=== PATIENT | male | born 1935 | race Caucasian/White ===

== ENCOUNTER 2020-07-23 07:11 | Outpatient (REF) | payer OTHER, MEDICARE, SELFPAY ==
[2020-07-23 07:57] LABS: MANUAL DIFF FLAG NO
[2020-07-23 08:09] LABS: Estimated Average Glucose 137 mg/dL; Hemoglobin A1c % 6.4 %
[2020-07-23 08:10] LABS: Basophils Absolute Auto 0.1 X10*3/uL (0.0-0.2); Basophils Percent Auto 0.8 % (0-2); Eosinophils Absolute Auto 0.5 X10*3/uL (0.0-0.4); Eosinophils Percent Auto 5.4 % (0-4); Hematocrit 45.8 % (42-52); Hemoglobin 14.5 g/dl (14.0-18.0); Imm Gran Abs Auto 0.05 X10*3/uL (0.00-0.03); Imm Gran Pct Auto 0.6 % (0.0-0.4); Lymphocytes Absolute Auto 1.8 X10*3/uL (1.2-4.9); Mean Corpuscular HGB Conc 31.7 g/dl (31.0-36.0); Mean Corpuscular Hemoglobin 30.5 pg (27.0-33.0); Mean Corpuscular Volume 96.2 fL (80-98); Mean Platelet Volume 10.1 fL (9.4-12.4); Monocytes Absolute Auto 0.9 X10*3/uL (0.1-1.2); Monocytes Percent Auto 10.4 % (2-11); Neutrophils Percent Auto 60.8 % (45-73); Platelet Count 262 X10*3/uL (160-400); Red Blood Count 4.76 X10*6/uL (4.60-5.80); Red Cell Distribution Width 13.5 % (11.0-16.0); White Blood Count 8.3 X10*3/uL (4.8-10.8)
[2020-07-23 08:26] LABS: Alanine Aminotransferase 17 U/L (0-40); Albumin Level 3.9 g/dL (3.5-5.0); Alkaline Phosphatase 81 U/L (39-117); Anion Gap 14 (12-20); Aspartate Amino Transferase 18 U/L (5-37); Bilirubin Total 0.7 mg/dL (0.0-1.0); Blood Urea Nitrogen 32 mg/dL (9-16); Calcium 8.8 mg/dL (8.4-10.2); Carbon Dioxide 21 mmol/L (22-29); Chloride 109 mmol/L (96-108); Estimated Glomerular Filt Rate 44; Glucose Fasting 132 mg/dL (60-99); Potassium 4.9 mmol/l (3.3-5.1); Sodium 139 mmol/L (135-145); Total Protein 6.8 g/dL (6.5-8.0)
[2020-07-23 09:59] LABS: Creatinine Urine 172.77 mg/dL; Microalbum/Creatinine Ratio Ur 2.8 ug/mg cr
== END 2020-07-23 07:12 | disposition home or self-care (01) ==
LOC: HO.LAB 07:11
PROVIDERS: PCP Internal Medicine Medical Oncology; Visit Provider Internal Medicine Medical Oncology
DX: E11.9 Type 2 diabetes mellitus without complications (principal); I10 Essential (primary) hypertension; E78.00 Pure hypercholesterolemia, unspecified
CPT/HCPCS: 36415; 80053; 82043; 83036; 85025

== ENCOUNTER 2020-08-21 09:26 | Outpatient (REF) | payer OTHER, MEDICARE, SELFPAY ==
--- NOTE | 2020-08-21 | US_ITS ---
EXAMINATION: US ABDOMEN COMPLETE CLINICAL INFORMATION: Left upper quadrant pain. COMPARISON: Ultrasound abdomen 02/22/2014 TECHNIQUE: Real-time imaging of the abdominal viscera. Technically difficult study secondary to body habitus. FINDINGS: PANCREAS: Visualized portions unremarkable. ABDOMINAL AORTA: Unremarkable. INFERIOR VENA CAVA: Unremarkable. LIVER: Unremarkable. GALLBLADDER: Unremarkable. COMMON BILE DUCT: Normal in caliber measuring 0.5 cm in diameter. RIGHT KIDNEY: 13.0 cm. Unremarkable. LEFT KIDNEY: 14.1 cm. Unremarkable. SPLEEN: Normal. The spleen measures 6.8 cm in maximum dimension. FREE FLUID: None. US/US abdomen complete IMPRESSION: Unremarkable abdominal ultrasound.
== END 2020-08-21 09:27 | disposition home or self-care (01) ==
LOC: HO.US 09:26
PROVIDERS: Visit Provider Internal Medicine Medical Oncology
DX: R10.12 Left upper quadrant pain (principal)
CPT/HCPCS: 76700

== ENCOUNTER 2020-10-25 07:48 | Outpatient (REF) | payer OTHER, MEDICARE, SELFPAY ==
[2020-10-25 08:21] LABS: MANUAL DIFF FLAG NO
[2020-10-25 08:33] LABS: Basophils Absolute Auto 0.1 X10*3/uL (0.0-0.2); Basophils Percent Auto 0.8 % (0-2); Eosinophils Absolute Auto 0.4 X10*3/uL (0.0-0.4); Eosinophils Percent Auto 4.5 % (0-4); Hematocrit 44.8 % (42-52); Hemoglobin 14.6 g/dl (14.0-18.0); Imm Gran Abs Auto 0.04 X10*3/uL (0.00-0.03); Imm Gran Pct Auto 0.5 % (0.0-0.4); Lymphocytes Absolute Auto 1.7 X10*3/uL (1.2-4.9); Lymphocytes Percent Auto 18.8 % (20-40); Mean Corpuscular HGB Conc 32.6 g/dl (31.0-36.0); Mean Corpuscular Hemoglobin 30.9 pg (27.0-33.0); Mean Corpuscular Volume 94.7 fL (80-98); Monocytes Absolute Auto 0.8 X10*3/uL (0.1-1.2); Monocytes Percent Auto 8.5 % (2-11); Neutrophils Absolute Auto 5.9 X10*3/uL (2.0-8.3); Neutrophils Percent Auto 66.9 % (45-73); Platelet Count 243 X10*3/uL (160-400); Red Blood Count 4.73 X10*6/uL (4.60-5.80); Red Cell Distribution Width 13.2 % (11.0-16.0); White Blood Count 8.8 X10*3/uL (4.8-10.8)
[2020-10-25 08:47] LABS: Estimated Average Glucose 137 mg/dL; Hemoglobin A1c % 6.4 %
[2020-10-25 09:02] LABS: Alanine Aminotransferase 18 U/L (0-40); Alkaline Phosphatase 86 U/L (39-117); Anion Gap 13 (12-20); Aspartate Amino Transferase 17 U/L (5-37); Bilirubin Total 0.8 mg/dL (0.0-1.0); Blood Urea Nitrogen 21 mg/dL (9-16); Calcium 8.9 mg/dL (8.4-10.2); Carbon Dioxide 23 mmol/L (22-29); Chloride 107 mmol/L (96-108); Cholesterol 148 mg/dL; Estimated Glomerular Filt Rate 53; Glucose Fasting 137 mg/dL (60-99); HDL Cholesterol 53 mg/dL; LDL Cholesterol Calculated 84 mg/dl; Potassium 4.8 mmol/L (3.3-5.1); Sodium 138 mmol/L (135-145); Total Protein 6.8 g/dL (6.5-8.0); Triglycerides 56 mg/dL
== END 2020-10-25 07:49 | disposition home or self-care (01) ==
LOC: HO.LAB 07:48
PROVIDERS: PCP Internal Medicine Medical Oncology; Visit Provider Internal Medicine Medical Oncology
DX: M51.06 Intervertebral disc disorders with myelopathy, lumbar region (principal); I10 Essential (primary) hypertension; E11.9 Type 2 diabetes mellitus without complications; E78.00 Pure hypercholesterolemia, unspecified; E66.9 Obesity, unspecified
CPT/HCPCS: 36415; 80053; 80061; 83036; 85025

== ENCOUNTER 2021-02-01 07:39 | Outpatient (REF) | payer OTHER, MEDICARE, SELFPAY ==
[2021-02-01 08:26] LABS: MANUAL DIFF FLAG NO
[2021-02-01 08:31] LABS: Basophils Absolute Auto 0.1 X10*3/uL (0.0-0.2); Basophils Percent Auto 0.8 % (0-2); Eosinophils Absolute Auto 0.5 X10*3/uL (0.0-0.4); Eosinophils Percent Auto 6.1 % (0-4); Hematocrit 45.6 % (42-52); Hemoglobin 14.6 g/dl (14.0-18.0); Imm Gran Abs Auto 0.02 X10*3/uL (0.00-0.03); Imm Gran Pct Auto 0.3 % (0.0-0.4); Lymphocytes Absolute Auto 1.6 X10*3/uL (1.2-4.9); Lymphocytes Percent Auto 20.5 % (20-40); Mean Corpuscular Hemoglobin 30.8 pg (27.0-33.0); Mean Corpuscular Volume 96.2 fL (80-98); Mean Platelet Volume 10.3 fL (9.4-12.4); Monocytes Absolute Auto 0.8 X10*3/uL (0.1-1.2); Monocytes Percent Auto 10.2 % (2-11); Neutrophils Absolute Auto 4.8 X10*3/uL (2.0-8.3); Neutrophils Percent Auto 62.1 % (45-73); Platelet Count 241 X10*3/uL (160-400); Red Blood Count 4.74 X10*6/uL (4.60-5.80); White Blood Count 7.7 X10*3/uL (4.8-10.8)
[2021-02-01 08:40] LABS: Estimated Average Glucose 137 mg/dL; Hemoglobin A1c % 6.4 %
[2021-02-01 08:47] LABS: Alanine Aminotransferase 11 U/L (0-40); Albumin Level 3.9 g/dL (3.5-5.0); Alkaline Phosphatase 93 U/L (39-117); Anion Gap 15 (12-20); Aspartate Amino Transferase 17 U/L (5-37); Bilirubin Total 0.8 mg/dL (0.0-1.0); Blood Urea Nitrogen 30 mg/dL (9-16); Calcium 8.7 mg/dL (8.4-10.2); Carbon Dioxide 20 mmol/L (22-29); Chloride 109 mmol/L (96-108); Cholesterol 150 mg/dL; Estimated Glomerular Filt Rate 49; Glucose Fasting 133 mg/dL (60-99); HDL Cholesterol 50 mg/dL; LDL Cholesterol Calculated 89 mg/dl; Potassium 4.6 mmol/L (3.3-5.1); Sodium 139 mmol/L (135-145); Total Protein 6.8 g/dL (6.5-8.0); Triglycerides 56 mg/dL
== END 2021-02-01 07:40 | disposition home or self-care (01) ==
LOC: HO.LAB 07:39
PROVIDERS: PCP Internal Medicine Medical Oncology; Visit Provider Internal Medicine Medical Oncology
DX: E11.9 Type 2 diabetes mellitus without complications (principal); E78.00 Pure hypercholesterolemia, unspecified; I10 Essential (primary) hypertension
CPT/HCPCS: 36415; 80053; 80061; 83036; 85025

== ENCOUNTER 2021-02-21 10:57 | Emergency (ER) | payer OTHER, MEDICARE, SELFPAY ==
[2021-02-21 10:59] VITALS: BP 140/66; PULSE 76; RESP 16; TEMP 36.6; O2SAT 96; BMI 33.0
[2021-02-21] MEDS: Lidocaine HCl 2 % MPF 5 ML VIAL SUBCUT (11:56)
--- NOTE | 2021-02-21 12:28 | ED.SKABFB ---
HPI - Skin/Abscess/Foreign Bdy General Chief complaint: Skin/Abscess/Foreign Body Stated complaint: CYST Time Seen by Provider: 02/21/21 11:22 Source: patient Mode of arrival: ambulatory Limitations: no limitations History of Present Illness HPI narrative: 85-year-old male with a past medical history of szm-ideksqy-pocjzflbg diabetes, hypertension hyperlipidemia here with abscess to his back x1 week. no fevers or chills. Went to his primary care doctor referred to the ER for I and D Related Data Previous Rx's Medication Instructions Recorded doxycycline monohydrate 100 mg PO BID #14 tab 02/21/21 Allergies Allergy/AdvReac Type Severity Reaction Status Date / Time Shellfish Allergy Intermediate ITCHING Uncoded 02/21/21 11:54 Review of Systems Review of Systems: Yes all other systems are reviewed and are negative Constitutional: Constitutional: Reports no additional constitutional complaints, Denies body ache(s), Denies chills, Denies fever(s), Denies headache(s) and Denies weakness Eyes: Eyes: Reports no additional eye complaints and Denies change in vision ENT: Reports system reviewed and no additional complaints, except as documented, Denies dizziness, Denies headache(s), Denies nasal congestion, Denies nasal discharge and Denies neck pain Cardiovascular: Cardiovascular: Reports no additional cardiovascular complaints, Denies chest pain, Denies leg edema and Denies dyspnea Respiratory: Respiratory: Reports no additional respiratory complaints, Denies cough and Denies dyspnea Gastrointestinal: Gastrointestinal: Reports no additional gastrointestinal complaints, Denies abdominal pain, Denies diarrhea, Denies nausea and Denies vomiting Genitourinary: Genitourinary: Denies urinary incontinence Musculoskeletal: Musculoskeletal: Reports no additional musculoskeletal complaints, Denies back pain, Denies arthralgias, Denies joint swelling, Denies neck pain, Denies numbness and Denies tingling Integumentary/Breasts: Skin/Breast: Reports system reviewed and no additional complaints, except as docu, Reports furuncle, Reports swelling, Reports erythema and Denies rash Neurologic: Reports system reviewed and no additional complaints, except as documented, Denies Abnormal speech present, Denies dizziness, Denies headache(s), Denies numbness, Denies tingling and Denies weakness PMFSH Past Medical History Attestation statement: The following information was validated with the patient. Source: old records reviewed and nursing notes reviewed Medical History Diabetes High cholesterol HTN (hypertension) Social History Social History Advance Directives: Yes Advance Directives Information Provided: Yes Advance Directives on File: No Physical Exam Vital Signs: Vital Signs: Last Vital Signs Temp 97.9 F 02/21/21 10:59 Pulse 76 02/21/21 10:59 Resp 16 02/21/21 10:59 BP 140/66 H 02/21/21 10:59 Pulse Ox 96 02/21/21 10:59 Body Mass Index 33.0 Const: General: cooperative, healthy appearing, comfortable and no acute distress Orientation/consciousness: patient oriented x3 Limitations: no limitations HENMT: Head: Yes normal to inspection Ears: hearing grossly normal bilaterally General nose exam: Normal external nose present Face and sinus: Yes normal facial exam Mouth: Normal oral and palatal mucosa present Throat: Yes posterior oropharynx normal Eyes: General: appearance normal, both eyes and all related structures Pupils: Equal, round and reactive pupils present Neck: Neck: Yes normal visual inspection Chest: Chest palpation & inspection: normal inspection of the chest Resp: Effort & Inspection: normal respiratory effort Auscultation: clear to auscultation bilaterally Cardio: Rate: regular rate Rhythm: regular rhythm Peripheral pulses: Peripheral pulses 2+ throughout GI: Inspection: Yes normal to inspection Palpation (GI): Soft to palpation and nontender Auscultation: normal bowel sounds Back/Spine/Pelvis: Other: to the upper back there is a large cyst with local erythema, swelling and tenderness. There is 1 area that is draining. there is pointing Thoracic/Lumbar Spine: thoracic and lumbar spine normal to inspection Skin: General skin exam: no rashes or lesions noted Neuro: General: patient oriented x3, no focal motor deficits and normal sensation to monofilament Cranial nerves: Yes Equal, round and reactive pupils present Cognition (Neuro): normal cognition Speech: No Abnormal speech present Gait exam (Neuro): Normal gait present Motor exam (neuro): 5/5 motor strength present throughout Extrem: General: Yes normal to inspection Course Course Course Narrative: see procedure note. infected cyst. given course of antibiotics. no systemic signs or symptoms concerning for infection. will refer to surgery. recommended return in 48 hours for packing removal. reviewed worrisome signs and symptoms of when to return to the emergency department. Comfortable discharge home. Procedures Abscess I/D Site: back Local Anesthetic: lidocaine 2% Amount of anesthesia used (mL): 5 Technique: incised with blade Amount of fluid expressed (mL): 20 Sent for culture/gram staining?: No Irrigation: Yes Packing used?: iodoform Discharge Plan Discharge Clinical Impression: Abscess of skin or subcutaneous tissue Qualifiers: Site of cutaneous abscess: trunk Site of cutaneous abscess of trunk: back Qualified Code(s): L02.212 - Cutaneous abscess of back [any part, except buttock] Patient Disposition: Home, Self-Care Instructions: Abscess (ED) Additional Instructions: Return for packing removal in 48 hours You may keep the bandage on until Wednesday. If it falls of then place a Band-Aid over it. If the packing falls out then you do not need to return for a recheck Prescriptions: New doxycycline monohydrate 100 mg tablet 100 mg PO BID Qty: 14 RF: 0 Referrals: Richie Hatfield MD [Primary Care Provider] - 2 days (as needed ) Bessy Duran MD [Physician] - 2 days Interventions: ED Discharge Assessment Last Done: 02/21/21 12:14 Discharge Date/Time: 02/21/21 12:16
== END 2021-02-21 12:16 | disposition home or self-care (01) ==
PROVIDERS: Emergency Provider Emergency Medicine Emergency Medical Services; PCP Internal Medicine Medical Oncology
DX: L02.212 Cutaneous abscess of back [any part, except buttock and flank] (principal); E11.9 Type 2 diabetes mellitus without complications; I10 Essential (primary) hypertension
CPT/HCPCS: 10060; 99283; 99284

== ENCOUNTER 2021-02-23 09:32 | Emergency (ER) | payer OTHER, MEDICARE, SELFPAY ==
[2021-02-23 09:35] VITALS: BP 148/62; PULSE 70; RESP 18; TEMP 36.6; O2SAT 98; BMI 32.8
--- NOTE | 2021-02-23 10:17 | ED.SKABFB ---
HPI - Skin/Abscess/Foreign Bdy General Chief complaint: Skin/Abscess/Foreign Body Stated complaint: abcess packet removed Time Seen by Provider: 02/23/21 10:17 History of Present Illness HPI narrative: Patient presents for packing removal of abscess on back that was I and D 2 days ago He has no complaints and feels improved no fever no chills Related Data Previous Rx's Medication Instructions Recorded doxycycline monohydrate 100 mg PO BID #14 tab 02/21/21 Allergies Allergy/AdvReac Type Severity Reaction Status Date / Time Shellfish Allergy Intermediate ITCHING Uncoded 02/21/21 11:54 Review of Systems Review of Systems: No fever no chills no dizziness no numbness no weakness no tingling no urinary symptoms Yes all other systems are reviewed and are negative PMFSH Past Medical History Source: nursing notes reviewed Medical History Diabetes High cholesterol HTN (hypertension) Social History Social History Advance Directives: Yes Advance Directives Information Provided: Yes Advance Directives on File: No Physical Exam Vital Signs: Vital Signs: Last Vital Signs Temp 97.9 F 02/23/21 09:35 Pulse 70 02/23/21 09:35 Resp 18 02/23/21 09:35 BP 148/62 H 02/23/21 09:35 Pulse Ox 98 02/23/21 09:35 Body Mass Index 32.8 General appearance no acute distress Head is normocephalic atraumatic Neck is supple The back there is packing in the abscess cavity with very minimal erythema there is no tenderness no fluctuance no longer any discharge from wound Extremities full range of motion x4 Neuro no focal motor sensory deficit Course Course Course Narrative: Packing was removed from 1 back I and D which is very improved and at this point there is no evidence of remaining abscess no surrounding cellulitis and patient is discharged Discharge Plan Discharge Clinical Impression: Wound check, abscess Patient Disposition: Home, Self-Care Additional Instructions: I removed the packing and the wound looks good Change dressing daily until wound is closed return any time for pain swelling redness fever any worse condition or any concerns Prescriptions: No Action doxycycline monohydrate 100 mg tablet 100 mg PO BID Qty: 14 RF: 0 Interventions: ED Discharge Assessment Last Done: 02/23/21 11:06 Discharge Date/Time: 02/23/21 11:07
== END 2021-02-23 11:07 | disposition home or self-care (01) ==
PROVIDERS: Emergency Provider Emergency Medicine
DX: Z48.00 Encounter for change or removal of nonsurgical wound dressing (principal); Z87.2 Personal history of diseases of the skin and subcutaneous tissue
CPT/HCPCS: 99283; 99284

== ENCOUNTER 2021-06-06 08:29 | Outpatient (REF) | payer OTHER, MEDICARE, SELFPAY ==
[2021-06-06 08:57] LABS: MANUAL DIFF FLAG NO
[2021-06-06 09:44] LABS: Basophils Percent Auto 0.2 % (0-2); Eosinophils Percent Auto 0.3 % (0-4); Hemoglobin 14.7 g/dl (14.0-18.0); Imm Gran Abs Auto 0.02 X10*3/uL (0.00-0.03); Imm Gran Pct Auto 0.3 % (0.0-0.4); Lymphocytes Absolute Auto 1.1 X10*3/uL (1.2-4.9); Lymphocytes Percent Auto 17.2 % (20-40); Mean Corpuscular HGB Conc 33.4 g/dl (31.0-36.0); Mean Corpuscular Hemoglobin 31.1 pg (27.0-33.0); Mean Platelet Volume 10.3 fL (9.4-12.4); Monocytes Absolute Auto 0.8 X10*3/uL (0.1-1.2); Monocytes Percent Auto 11.8 % (2-11); Neutrophils Absolute Auto 4.5 X10*3/uL (2.0-8.3); Neutrophils Percent Auto 70.2 % (45-73); Platelet Count 192 X10*3/uL (160-400); Red Blood Count 4.73 X10*6/uL (4.60-5.80); Red Cell Distribution Width 13.8 % (11.0-16.0); White Blood Count 6.4 X10*3/uL (4.8-10.8)
[2021-06-06 10:25] LABS: Alanine Aminotransferase 19 U/L (0-40); Albumin Level 3.8 g/dL (3.5-5.0); Alkaline Phosphatase 95 U/L (39-117); Anion Gap 15 (12-20); Aspartate Amino Transferase 32 U/L (5-37); Bilirubin Total 0.9 mg/dL (0.0-1.0); Blood Urea Nitrogen 37 mg/dL (9-16); Calcium 8.7 mg/dL (8.4-10.2); Carbon Dioxide 17 mmol/L (22-29); Chloride 107 mmol/L (96-108); Cholesterol 121 mg/dL; Estimated Glomerular Filt Rate 38; Glucose Fasting 109 mg/dL (60-99); HDL Cholesterol 42 mg/dL; LDL Cholesterol Calculated 69 mg/dl; Potassium 5.1 mmol/L (3.3-5.1); Sodium 134 mmol/L (135-145); Total Protein 6.9 g/dL (6.5-8.0); Triglycerides 53 mg/dL
[2021-06-06 10:26] LABS: Estimated Average Glucose 137 mg/dL; Hemoglobin A1c % 6.4 %
[2021-06-06 10:29] LABS: Creatinine Urine 84.02 mg/dL
[2021-06-06 10:35] LABS: Prostate Specific Antigen 3.56 ng/mL (<0.05-4.0)
== END 2021-06-06 08:30 | disposition home or self-care (01) ==
LOC: HO.LAB 08:29
PROVIDERS: PCP Internal Medicine Medical Oncology; Visit Provider Internal Medicine Medical Oncology
DX: I10 Essential (primary) hypertension (principal); N40.0 Benign prostatic hyperplasia without lower urinary tract symptoms; E11.9 Type 2 diabetes mellitus without complications; E78.5 Hyperlipidemia, unspecified; Z12.5 Encounter for screening for malignant neoplasm of prostate
CPT/HCPCS: 36415; 80053; 80061; 82043; 83036; 84153; 85025

== ENCOUNTER 2021-08-08 15:24 | Outpatient (REF) | payer OTHER, MEDICARE, SELFPAY ==
--- NOTE | ~2021-08-08 | US_ITS ---
EXAMINATION: US RETROPERITONEAL COMPLETE (RENAL) CLINICAL INFORMATION: Hypertension. Elevated BUN. 2 diabetes. COMPARISON: Ultrasound abdomen complete 08/21/2020 and 02/22/2014. TECHNIQUE: Real-time imaging of the kidneys and bladder. FINDINGS: RIGHT KIDNEY: 12.8 x 4.6 x 6.4 cm (SAG x AP x TRV). Mildly echogenic. There is mild cortical thinning and a mid pole parenchymal calcification. There is mild cortical thinning. No calculi or focal parenchymal lesions. No hydronephrosis. LEFT KIDNEY: 12.8 x 5.2 x 4.8 cm (SAG x AP x TRV). Mildly echogenic. Cortical thinning. No calculi or focal parenchymal lesions. No hydronephrosis. BLADDER: Well distended and normal. Bilateral ureteral jets are demonstrated. Prevoid bladder volume is 327.3 mL. Postvoid bladder volume is 233.3 mL. ADDITIONAL FINDINGS: The prostate is enlarged. Prostate volume is 60 mL. US/US retroperitoneal comp IMPRESSION: 1. Prostatomegaly and significant post void residual bladder volume. 2. Mildly echogenic kidneys bilaterally with mild cortical thinning.
== END 2021-08-08 15:25 | disposition home or self-care (01) ==
LOC: HO.US 15:24
PROVIDERS: Visit Provider Internal Medicine Medical Oncology
DX: I10 Essential (primary) hypertension (principal); E11.9 Type 2 diabetes mellitus without complications; R74.8 Abnormal levels of other serum enzymes; R79.9 Abnormal finding of blood chemistry, unspecified
CPT/HCPCS: 76770

== ENCOUNTER 2021-08-15 09:05 | Outpatient (REF) | payer OTHER, MEDICARE, SELFPAY ==
[2021-08-15 09:22] LABS: MANUAL DIFF FLAG NO
[2021-08-15 09:37] LABS: Basophils Percent Auto 0.5 % (0-2); Eosinophils Absolute Auto 0.3 X10*3/uL (0.0-0.4); Eosinophils Percent Auto 3.8 % (0-4); Hematocrit 43.5 % (42.0-52.0); Hemoglobin 14.1 g/dl (14.0-18.0); Imm Gran Abs Auto 0.02 X10*3/uL (0.00-0.03); Imm Gran Pct Auto 0.3 % (0.0-0.4); Lymphocytes Absolute Auto 1.2 X10*3/uL (1.2-4.9); Mean Corpuscular HGB Conc 32.4 g/dl (31.0-36.0); Mean Corpuscular Hemoglobin 30.9 pg (27.0-33.0); Mean Corpuscular Volume 95.4 fL (80.0-98.0); Mean Platelet Volume 9.5 fL (9.4-12.4); Monocytes Absolute Auto 0.7 X10*3/uL (0.1-1.2); Neutrophils Absolute Auto 5.3 x10*3/uL (2.0-8.3); Neutrophils Percent Auto 70.4 % (45-73); Platelet Count 252 X10*3/uL (160-400); Red Blood Count 4.56 X10*6/uL (4.60-5.80); Red Cell Distribution Width 13.9 % (11.0-16.0); White Blood Count 7.6 X10*3/uL (4.8-10.8)
[2021-08-15 10:00] LABS: Alanine Aminotransferase 20 U/L (0-40); Albumin Level 4.3 g/dL (3.5-5.0); Alkaline Phosphatase 92 U/L (39-117); Anion Gap 13 (12-20); Aspartate Amino Transferase 20 U/L (5-37); Bilirubin Direct 0.4 mg/dL (0.0-0.5); Bilirubin Total 1.1 mg/dL (0.0-1.0); Blood Urea Nitrogen 26 mg/dL (9-16); Calcium 9.4 mg/dL (8.4-10.2); Carbon Dioxide 22 mmol/L (22-29); Chloride 108 mmol/L (96-108); Estimated Glomerular Filt Rate 52; Phosphorus 3.6 mg/dL (2.7-4.5); Potassium 4.6 mmol/L (3.3-5.1); Sodium 138 mmol/L (135-145); Total Protein 7.2 g/dL (6.5-8.0); Uric Acid 7.9 mg/dL (3.4-7.0)
[2021-08-15 10:22] LABS: Vitamin D 25-OH Total 16.3 ng/mL (>30)
[2021-08-18 11:01] LABS: Complement C3 126 mg/dL
[2021-08-18 11:26] LABS: Anti Nuclear Antibody Screen NEGATIVE (NEGATIVE)
[2021-08-18 12:41] LABS: Calcium (PTHI) 9.2 mg/dL (8.6-10.3); PTHI 72 pg/mL (14-64)
[2021-08-18 13:46] LABS: Prot Elec - Albumin 3.9 g/dL (3.8-4.8); Prot Elec - Alpha1 0.3 g/dL (0.2-0.3); Prot Elec - Alpha2 0.8 g/dL (0.5-0.9); Prot Elec - Beta 1 0.5 g/dL (0.4-0.6); Prot Elec - Beta 2 0.4 g/dL (0.2-0.5); Prot Elec - Gamma 1.4 g/dL (0.8-1.7); Prot Elec - Total Protein 7.1 g/dL (6.1-8.1)
== END 2021-08-15 09:06 | disposition home or self-care (01) ==
LOC: HO.LAB 09:05
PROVIDERS: Visit Provider Internal Medicine Nephrology
DX: I12.9 Hypertensive chronic kidney disease with stage 1 through stage 4 chronic kidney disease, or unspecified chronic kidney disease (principal); N18.31 Chronic kidney disease, stage 3a
CPT/HCPCS: 36415; 80051; 80076; 82306; 82310; 82565; 83970; 84100; 84165; 84520; 84550; 85025; 86038; 86039; 86160

== ENCOUNTER 2021-11-12 11:55 | Outpatient (REF) | payer OTHER, MEDICARE, SELFPAY ==
[2021-11-12 12:49] LABS: Appearance Urine CLEAR; Color Urine YELLOW; Glucose Urine UA NEG (NEG); Leukocyte Esterase Urine NEG (NEG); Nitrite Urine NEG (NEG); PH 5.5 (5.0-8.0); Urine Blood NEG (NEG); Urine Ketones NEG (NEG); Urine Protein TRACE MG/DL (NEG-TRACE)
== END 2021-11-12 11:56 | disposition home or self-care (01) ==
LOC: HO.LAB 11:55
PROVIDERS: PCP Internal Medicine Medical Oncology; Visit Provider Internal Medicine Medical Oncology
DX: R32 Unspecified urinary incontinence (principal); N40.0 Benign prostatic hyperplasia without lower urinary tract symptoms
CPT/HCPCS: 81003; 87086

== ENCOUNTER 2021-12-05 07:28 | Outpatient (REF) | payer OTHER, MEDICARE, SELFPAY ==
[2021-12-05 07:47] LABS: MANUAL DIFF FLAG NO
[2021-12-05 08:02] LABS: Basophils Absolute Auto 0.1 X10*3/uL (0.0-0.2); Basophils Percent Auto 0.9 % (0-2); Eosinophils Absolute Auto 0.6 X10*3/uL (0.0-0.4); Eosinophils Percent Auto 8.4 % (0-4); Hemoglobin 14.2 g/dl (14.0-18.0); Imm Gran Abs Auto 0.02 X10*3/uL (0.00-0.03); Imm Gran Pct Auto 0.3 % (0.0-0.4); Lymphocytes Absolute Auto 1.3 X10*3/uL (1.2-4.9); Lymphocytes Percent Auto 16.9 % (20-40); Mean Corpuscular HGB Conc 32.3 g/dl (31.0-36.0); Mean Corpuscular Hemoglobin 31.1 pg (27.0-33.0); Mean Corpuscular Volume 96.3 fL (80.0-98.0); Mean Platelet Volume 9.6 fL (9.4-12.4); Monocytes Absolute Auto 0.8 X10*3/uL (0.1-1.2); Monocytes Percent Auto 10.9 % (2-11); Neutrophils Absolute Auto 4.7 x10*3/uL (2.0-8.3); Neutrophils Percent Auto 62.6 % (45-73); Platelet Count 227 X10*3/uL (160-400); Red Blood Count 4.57 X10*6/uL (4.60-5.80); White Blood Count 7.5 X10*3/uL (4.8-10.8)
[2021-12-05 08:13] LABS: Estimated Average Glucose 128 mg/dL; Hemoglobin A1c % 6.1 %
[2021-12-05 08:34] LABS: Alanine Aminotransferase 16 U/L (0-40); Albumin Level 3.8 g/dL (3.5-5.0); Alkaline Phosphatase 87 U/L (39-117); Anion Gap 12 (12-20); Aspartate Amino Transferase 18 U/L (5-37); Bilirubin Total 0.5 mg/dL (0.0-1.0); Blood Urea Nitrogen 21 mg/dL (9-16); Carbon Dioxide 24 mmol/L (22-29); Chloride 106 mmol/L (96-108); Cholesterol 152 mg/dL; Estimated Glomerular Filt Rate 58; Glucose Fasting 125 mg/dL (60-99); HDL Cholesterol 54 mg/dL; LDL Cholesterol Calculated 89 mg/dl; Potassium 4.2 mmol/L (3.3-5.1); Sodium 138 mmol/L (135-145); Total Protein 6.7 g/dL (6.5-8.0); Triglycerides 47 mg/dL
== END 2021-12-05 07:29 | disposition home or self-care (01) ==
LOC: HO.LAB 07:28
PROVIDERS: PCP Internal Medicine Medical Oncology; Visit Provider Internal Medicine Medical Oncology
DX: I10 Essential (primary) hypertension (principal); E11.9 Type 2 diabetes mellitus without complications; E78.01 Familial hypercholesterolemia
CPT/HCPCS: 36415; 80053; 80061; 83036; 85025

== ENCOUNTER 2022-04-17 07:23 | Outpatient (REF) | payer OTHER, MEDICARE, SELFPAY ==
[2022-04-17 07:38] LABS: MANUAL DIFF FLAG NO
[2022-04-17 08:19] LABS: Basophils Absolute Auto 0.1 X10*3/uL (0.0-0.2); Basophils Percent Auto 1.2 % (0-2); Eosinophils Absolute Auto 0.4 X10*3/uL (0.0-0.4); Eosinophils Percent Auto 4.9 % (0-4); Hematocrit 43.8 % (42.0-52.0); Hemoglobin 14.3 g/dl (14.0-18.0); Imm Gran Abs Auto 0.02 X10*3/uL (0.00-0.03); Imm Gran Pct Auto 0.3 % (0.0-0.4); Lymphocytes Absolute Auto 1.4 X10*3/uL (1.2-4.9); Lymphocytes Percent Auto 19.5 % (20-40); Mean Corpuscular HGB Conc 32.6 g/dl (31.0-36.0); Mean Platelet Volume 9.8 fL (9.4-12.4); Monocytes Absolute Auto 0.8 X10*3/uL (0.1-1.2); Monocytes Percent Auto 10.6 % (2-11); Neutrophils Absolute Auto 4.7 x10*3/uL (2.0-8.3); Neutrophils Percent Auto 63.5 % (45-73); Platelet Count 243 X10*3/uL (160-400); Red Blood Count 4.61 X10*6/uL (4.60-5.80); Red Cell Distribution Width 13.1 % (11.0-16.0); White Blood Count 7.4 X10*3/uL (4.8-10.8)
[2022-04-17 08:49] LABS: Alanine Aminotransferase 13 U/L (0-40); Albumin Level 3.9 g/dL (3.5-5.0); Alkaline Phosphatase 90 U/L (39-117); Anion Gap 15 (12-20); Aspartate Amino Transferase 19 U/L (5-37); Bilirubin Total 0.9 mg/dL (0.0-1.0); Blood Urea Nitrogen 26 mg/dL (9-16); Calcium 8.9 mg/dL (8.4-10.2); Carbon Dioxide 23 mmol/L (22-29); Chloride 107 mmol/L (96-108); Cholesterol 156 mg/dL; Estimated Glomerular Filt Rate 48; Glucose Fasting 125 mg/dL (60-99); HDL Cholesterol 56 mg/dL; LDL Cholesterol Calculated 86 mg/dl; Potassium 4.9 mmol/L (3.3-5.1); Sodium 140 mmol/L (135-145); Triglycerides 74 mg/dL
== END 2022-04-17 07:24 | disposition home or self-care (01) ==
LOC: HO.LAB 07:23
PROVIDERS: PCP Internal Medicine Medical Oncology; Visit Provider Internal Medicine Medical Oncology
DX: E66.9 Obesity, unspecified (principal); E11.9 Type 2 diabetes mellitus without complications; I10 Essential (primary) hypertension
CPT/HCPCS: 36415; 80053; 80061; 85025

== ENCOUNTER 2022-07-25 07:17 | Outpatient (REF) | payer OTHER, MEDICARE, SELFPAY ==
[2022-07-25 08:35] LABS: Basophils Absolute Auto 0.1 X10*3/uL (0.0-0.2); Basophils Percent Auto 0.9 % (0-2); Eosinophils Absolute Auto 0.3 X10*3/uL (0.0-0.4); Eosinophils Percent Auto 4.1 % (0-4); Hematocrit 43.6 % (42.0-52.0); Hemoglobin 14.7 g/dl (14.0-18.0); Imm Gran Abs Auto 0.02 X10*3/uL (0.00-0.03); Imm Gran Pct Auto 0.3 % (0.0-0.4); Lymphocytes Absolute Auto 1.5 X10*3/uL (1.2-4.9); Lymphocytes Percent Auto 19.6 % (20-40); MANUAL DIFF FLAG SCAN; Mean Corpuscular HGB Conc 33.7 g/dl (31.0-36.0); Mean Corpuscular Hemoglobin 31.7 pg (27.0-33.0); Mean Platelet Volume 11.5 fL (9.4-12.4); Monocytes Absolute Auto 0.8 X10*3/uL (0.1-1.2); Monocytes Percent Auto 9.9 % (2-11); Neutrophils Absolute Auto 5.1 x10*3/uL (2.0-8.3); Neutrophils Percent Auto 65.2 % (45-73); PLT CLUMP 1; Platelet Count 222 X10*3/uL (160-400); Red Blood Count 4.64 X10*6/uL (4.60-5.80); Red Cell Distribution Width 13.1 % (11.0-16.0); SCAN SMEAR FLAG 1; White Blood Count 7.8 X10*3/uL (4.8-10.8)
[2022-07-25 08:52] LABS: Estimated Average Glucose 131 mg/dL; Hemoglobin A1c % 6.2 %; SLIDE REVIEW VERIFIED
[2022-07-25 09:25] LABS: Alanine Aminotransferase 15 U/L (0-40); Albumin Level 3.9 g/dL (3.5-5.0); Alkaline Phosphatase 85 U/L (39-117); Anion Gap 11 (12-20); Aspartate Amino Transferase 16 U/L (5-37); Bilirubin Total 0.8 mg/dL (0.0-1.0); Blood Urea Nitrogen 29 mg/dL (9-16); Calcium 9.1 mg/dL (8.4-10.2); Carbon Dioxide 22 mmol/L (22-29); Chloride 107 mmol/L (96-108); Cholesterol 163 mg/dL; Estimated Glomerular Filt Rate 52; Glucose Fasting 137 mg/dL (60-99); HDL Cholesterol 52 mg/dL; LDL Cholesterol Calculated 100 mg/dl; Potassium 4.3 mmol/L (3.3-5.1); Prostate Specific Antigen 0.61 ng/mL (<0.05-4.0); Sodium 136 mmol/L (135-145); Total Protein 6.8 g/dL (6.5-8.0); Triglycerides 58 mg/dL
== END 2022-07-25 07:18 | disposition home or self-care (01) ==
LOC: HO.LAB 07:17
PROVIDERS: PCP Internal Medicine Medical Oncology; Visit Provider Internal Medicine Medical Oncology
DX: Z12.5 Encounter for screening for malignant neoplasm of prostate (principal); N40.0 Benign prostatic hyperplasia without lower urinary tract symptoms; E11.9 Type 2 diabetes mellitus without complications; E78.00 Pure hypercholesterolemia, unspecified
CPT/HCPCS: 36415; 80053; 80061; 83036; 84153; 85025

== ENCOUNTER 2022-10-16 11:57 | Outpatient (REF) | payer OTHER, MEDICARE, SELFPAY ==
[2022-10-16 13:52] LABS: INTERNATIONAL NORM RATIO 2.2 (0.9-1.1); Prothrombin Time 26.5 SEC (10.0-13.1)
== END 2022-10-16 11:58 | disposition home or self-care (01) ==
LOC: HO.10HDL 11:57
PROVIDERS: Visit Provider Internal Medicine Medical Oncology
DX: I63.9 Cerebral infarction, unspecified (principal); I65.21 Occlusion and stenosis of right carotid artery
CPT/HCPCS: 36415; 85610

== ENCOUNTER 2022-10-22 17:28 | Outpatient (REF) | payer OTHER, MEDICARE, SELFPAY ==
[2022-10-22 18:50] LABS: INTERNATIONAL NORM RATIO 2.2 (0.9-1.1); Prothrombin Time 25.9 SEC (10.0-13.1)
== END 2022-10-22 17:29 | disposition home or self-care (01) ==
LOC: HO.LAB 17:28
PROVIDERS: PCP Internal Medicine Medical Oncology; Visit Provider Internal Medicine Medical Oncology
DX: Z86.73 Personal history of transient ischemic attack (TIA), and cerebral infarction without residual deficits (principal)
CPT/HCPCS: 36415; 85610

== ENCOUNTER → 2022-11-02 09:45 | Outpatient (BNVA) | payer OTHER, MEDICARE, SELFPAY | PROVIDERS: PCP Internal Medicine Medical Oncology; Visit Provider Internal Medicine | DX: I63.9 Cerebral infarction, unspecified (principal); Z51.81 Encounter for therapeutic drug level monitoring; Z79.01 Long term (current) use of anticoagulants | CPT/HCPCS: 85610; 99202 ==

== ENCOUNTER → 2022-11-06 09:07 | Outpatient (BNVA) | payer OTHER, MEDICARE, SELFPAY | PROVIDERS: PCP Internal Medicine Medical Oncology; Visit Provider Internal Medicine | DX: I63.9 Cerebral infarction, unspecified (principal); Z51.81 Encounter for therapeutic drug level monitoring; Z79.01 Long term (current) use of anticoagulants | CPT/HCPCS: 85610; 99211 ==

== ENCOUNTER → 2022-11-13 09:53 | Outpatient (BNVA) | payer OTHER, MEDICARE, SELFPAY | PROVIDERS: PCP Internal Medicine Medical Oncology; Visit Provider Internal Medicine | DX: I63.9 Cerebral infarction, unspecified (principal); Z51.81 Encounter for therapeutic drug level monitoring; Z79.01 Long term (current) use of anticoagulants | CPT/HCPCS: 85610; 99211 ==

== ENCOUNTER → 2022-11-20 09:59 | Outpatient (BNVA) | payer OTHER, MEDICARE, SELFPAY | PROVIDERS: PCP Internal Medicine Medical Oncology; Visit Provider Internal Medicine | DX: I63.9 Cerebral infarction, unspecified (principal); Z51.81 Encounter for therapeutic drug level monitoring; Z79.01 Long term (current) use of anticoagulants | CPT/HCPCS: 85610; 99211 ==

== ENCOUNTER → 2022-12-04 09:47 | Outpatient (BNVA) | payer OTHER, MEDICARE, SELFPAY | PROVIDERS: PCP Internal Medicine Medical Oncology; Visit Provider Internal Medicine | DX: I63.9 Cerebral infarction, unspecified (principal); Z51.81 Encounter for therapeutic drug level monitoring; Z79.01 Long term (current) use of anticoagulants | CPT/HCPCS: 85610; 99211 ==

== ENCOUNTER 2022-12-11 06:56 | Outpatient (REF) | payer OTHER, MEDICARE, SELFPAY ==
[2022-12-11 07:15] LABS: MANUAL DIFF FLAG NO
[2022-12-11 08:01] LABS: Basophils Absolute Auto 0.1 X10*3/uL (0.0-0.2); Basophils Percent Auto 0.9 % (0-2); Eosinophils Absolute Auto 0.4 X10*3/uL (0.0-0.4); Eosinophils Percent Auto 5.8 % (0-4); Hematocrit 41.8 % (42.0-52.0); Hemoglobin 13.6 g/dl (14.0-18.0); Imm Gran Abs Auto 0.01 X10*3/uL (0.00-0.03); Imm Gran Pct Auto 0.1 % (0.0-0.4); Lymphocytes Absolute Auto 1.3 X10*3/uL (1.2-4.9); Lymphocytes Percent Auto 19.2 % (20-40); Mean Corpuscular HGB Conc 32.5 g/dl (31.0-36.0); Mean Corpuscular Hemoglobin 30.5 pg (27.0-33.0); Mean Corpuscular Volume 93.7 fL (80.0-98.0); Mean Platelet Volume 9.5 fL (9.4-12.4); Monocytes Absolute Auto 0.7 X10*3/uL (0.1-1.2); Monocytes Percent Auto 10.3 % (2-11); Neutrophils Absolute Auto 4.2 x10*3/uL (2.0-8.3); Neutrophils Percent Auto 63.7 % (45-73); Platelet Count 253 X10*3/uL (160-400); Red Blood Count 4.46 X10*6/uL (4.60-5.80); Red Cell Distribution Width 13.4 % (11.0-16.0); White Blood Count 6.7 X10*3/uL (4.8-10.8)
[2022-12-11 08:15] LABS: Estimated Average Glucose 131 mg/dL; Hemoglobin A1c % 6.2 %
[2022-12-11 08:25] LABS: Alanine Aminotransferase 16 U/L (0-40); Albumin Level 3.9 g/dL (3.5-5.0); Alkaline Phosphatase 82 U/L (39-117); Anion Gap 14 (12-20); Aspartate Amino Transferase 17 U/L (5-37); Bilirubin Total 0.9 mg/dL (0.0-1.0); Blood Urea Nitrogen 27 mg/dL (9-16); Calcium 8.8 mg/dL (8.4-10.2); Carbon Dioxide 22 mmol/L (22-29); Chloride 110 mmol/L (96-108); Cholesterol 162 mg/dL; Estimated Glomerular Filt Rate 50; Glucose Fasting 118 mg/dL (60-99); HDL Cholesterol 51 mg/dL; LDL Cholesterol Calculated 100 mg/dl; Sodium 141 mmol/L (135-145); Total Protein 6.7 g/dL (6.5-8.0); Triglycerides 59 mg/dL
[2022-12-11 08:37] LABS: Creatinine Urine 50.65 mg/dL; Microalbum/Creatinine Ratio Ur 185.5 ug/mg cr
== END 2022-12-11 06:57 | disposition home or self-care (01) ==
LOC: HO.LAB 06:56
PROVIDERS: PCP Internal Medicine Medical Oncology; Visit Provider Internal Medicine Medical Oncology
DX: I10 Essential (primary) hypertension (principal); E11.9 Type 2 diabetes mellitus without complications; E66.9 Obesity, unspecified; E78.01 Familial hypercholesterolemia
CPT/HCPCS: 36415; 80053; 80061; 82043; 83036; 85025

== ENCOUNTER → 2022-12-18 09:08 | Outpatient (BNVA) | payer OTHER, MEDICARE, SELFPAY | PROVIDERS: PCP Internal Medicine Medical Oncology; Visit Provider Internal Medicine | DX: I63.9 Cerebral infarction, unspecified (principal); Z51.81 Encounter for therapeutic drug level monitoring; Z79.01 Long term (current) use of anticoagulants | CPT/HCPCS: 85610; 99211 ==

== ENCOUNTER → 2023-01-08 08:51 | Outpatient (BNVA) | payer OTHER, MEDICARE, SELFPAY | PROVIDERS: PCP Internal Medicine Medical Oncology; Visit Provider Internal Medicine | DX: Z51.81 Encounter for therapeutic drug level monitoring (principal); Z79.01 Long term (current) use of anticoagulants; I63.9 Cerebral infarction, unspecified | CPT/HCPCS: 85610; 99211 ==

== ENCOUNTER → 2023-01-29 08:44 | Outpatient (BNVA) | payer OTHER, MEDICARE, SELFPAY | PROVIDERS: PCP Internal Medicine Medical Oncology; Visit Provider Internal Medicine | DX: Z51.81 Encounter for therapeutic drug level monitoring (principal); Z79.01 Long term (current) use of anticoagulants; I63.9 Cerebral infarction, unspecified | CPT/HCPCS: 85610; 99211 ==

== ENCOUNTER 2023-03-19 06:54 | Outpatient (REF) | payer OTHER, MEDICARE, SELFPAY ==
[2023-03-19 07:19] LABS: MANUAL DIFF FLAG NO
[2023-03-19 07:35] LABS: Basophils Absolute Auto 0.1 X10*3/uL (0.0-0.2); Basophils Percent Auto 1.1 % (0-2); Eosinophils Absolute Auto 0.4 X10*3/uL (0.0-0.4); Eosinophils Percent Auto 5.3 % (0-4); Hematocrit 43.4 % (42.0-52.0); Hemoglobin 13.9 g/dl (14.0-18.0); Imm Gran Abs Auto 0.01 X10*3/uL (0.00-0.03); Imm Gran Pct Auto 0.1 % (0.0-0.4); Lymphocytes Absolute Auto 1.5 X10*3/uL (1.2-4.9); Lymphocytes Percent Auto 20.9 % (20-40); Mean Corpuscular Hemoglobin 30.8 pg (27.0-33.0); Mean Platelet Volume 9.7 fL (9.4-12.4); Monocytes Absolute Auto 0.8 X10*3/uL (0.1-1.2); Neutrophils Absolute Auto 4.5 x10*3/uL (2.0-8.3); Neutrophils Percent Auto 61.6 % (45-73); Platelet Count 256 X10*3/uL (160-400); Red Blood Count 4.52 X10*6/uL (4.60-5.80); Red Cell Distribution Width 13.2 % (11.0-16.0); White Blood Count 7.4 X10*3/uL (4.8-10.8)
[2023-03-19 07:44] LABS: Estimated Average Glucose 114 mg/dL; Hemoglobin A1c % 5.6 %
[2023-03-19 08:19] LABS: Alanine Aminotransferase 12 U/L (0-40); Albumin Level 3.9 g/dL (3.5-5.0); Alkaline Phosphatase 88 U/L (39-117); Anion Gap 15 (12-20); Aspartate Amino Transferase 15 U/L (5-37); Bilirubin Total 0.6 mg/dL (0.0-1.0); Blood Urea Nitrogen 27 mg/dL (9-16); Carbon Dioxide 20 mmol/L (22-29); Chloride 110 mmol/L (96-108); Cholesterol 142 mg/dL; Estimated Glomerular Filt Rate 48; Glucose Fasting 119 mg/dL (60-99); HDL Cholesterol 51 mg/dL; LDL Cholesterol Calculated 84 mg/dl; Potassium 4.1 mmol/L (3.3-5.1); Sodium 141 mmol/L (135-145); Total Protein 7.2 g/dL (6.5-8.0); Triglycerides 38 mg/dL
[2023-03-19 08:47] LABS: Prostate Specific Antigen 0.45 ng/mL (<0.05-4.0)
== END 2023-03-19 06:55 | disposition home or self-care (01) ==
LOC: HO.LAB 06:54
PROVIDERS: Visit Provider Internal Medicine Medical Oncology
DX: Z00.00 Encounter for general adult medical examination without abnormal findings (principal); Z12.5 Encounter for screening for malignant neoplasm of prostate; I10 Essential (primary) hypertension; N40.0 Benign prostatic hyperplasia without lower urinary tract symptoms; E11.9 Type 2 diabetes mellitus without complications; E78.01 Familial hypercholesterolemia
CPT/HCPCS: 36415; 80053; 80061; 83036; 84153; 85025

== ENCOUNTER 2023-07-17 07:06 | Outpatient (REF) | payer OTHER, MEDICARE, SELFPAY ==
[2023-07-17 07:28] LABS: MANUAL DIFF FLAG NO
[2023-07-17 07:45] LABS: Basophils Absolute Auto 0.1 X10*3/uL (0.0-0.2); Eosinophils Absolute Auto 0.4 X10*3/uL (0.0-0.4); Eosinophils Percent Auto 4.7 % (0-4); Hematocrit 42.7 % (42.0-52.0); Hemoglobin 13.8 g/dl (14.0-18.0); Imm Gran Abs Auto 0.02 X10*3/uL (0.00-0.03); Imm Gran Pct Auto 0.2 % (0.0-0.4); Lymphocytes Absolute Auto 1.4 X10*3/uL (1.2-4.9); Lymphocytes Percent Auto 16.6 % (20-40); Mean Corpuscular HGB Conc 32.3 g/dl (31.0-36.0); Mean Corpuscular Hemoglobin 30.4 pg (27.0-33.0); Mean Corpuscular Volume 94.1 fL (80.0-98.0); Mean Platelet Volume 10.8 fL (9.4-12.4); Monocytes Absolute Auto 0.9 X10*3/uL (0.1-1.2); Monocytes Percent Auto 10.3 % (2-11); Neutrophils Absolute Auto 5.6 x10*3/uL (2.0-8.3); Neutrophils Percent Auto 67.2 % (45-73); Platelet Count 213 X10*3/uL (160-400); Red Blood Count 4.54 X10*6/uL (4.60-5.80); Red Cell Distribution Width 14.4 % (11.0-16.0); White Blood Count 8.4 X10*3/uL (4.8-10.8)
[2023-07-17 08:13] LABS: Estimated Average Glucose 134 mg/dL; Hemoglobin A1c % 6.3 % (<6.0)
[2023-07-17 08:15] LABS: Alanine Aminotransferase 13 U/L (0-40); Albumin Level 3.8 g/dL (3.5-5.0); Alkaline Phosphatase 82 U/L (39-117); Anion Gap 10 (12-20); Aspartate Amino Transferase 16 U/L (5-37); Bilirubin Total 0.5 mg/dL (0.0-1.0); Blood Urea Nitrogen 24 mg/dL (9-16); Calcium 8.9 mg/dL (8.4-10.2); Carbon Dioxide 20 mmol/L (22-29); Chloride 114 mmol/L (96-108); Cholesterol 138 mg/dL (<200); Estimated Glomerular Filt Rate 49; Glucose Random 123 mg/dL (60-115); HDL Cholesterol 53 mg/dL (>40); LDL Cholesterol Calculated 77 mg/dL (<100); Potassium 4.3 mmol/L (3.3-5.1); Sodium 140 mmol/L (135-145); Total Protein 6.9 g/dL (6.5-8.0); Triglycerides 40 mg/dL (<150)
[2023-07-17 08:34] LABS: Prostate Specific Antigen 0.54 ng/mL (<0.05-4.0)
[2023-07-17 09:32] LABS: Creatinine Urine 68.06 mg/dL; Microalbum/Creatinine Ratio Ur 236.5 ug/mg cr (<30)
== END 2023-07-17 07:07 | disposition home or self-care (01) ==
LOC: HO.LAB 07:06
PROVIDERS: PCP Internal Medicine Medical Oncology; Visit Provider Internal Medicine Medical Oncology
DX: Z12.5 Encounter for screening for malignant neoplasm of prostate (principal); I10 Essential (primary) hypertension; N40.0 Benign prostatic hyperplasia without lower urinary tract symptoms; E11.9 Type 2 diabetes mellitus without complications; E78.01 Familial hypercholesterolemia
CPT/HCPCS: 36415; 80053; 80061; 82043; 82570; 83036; 84153; 85025

== ENCOUNTER 2024-03-03 06:54 | Outpatient (REF) | payer OTHER, MEDICARE, SELFPAY ==
[2024-03-03 07:21] LABS: MANUAL DIFF FLAG NO
[2024-03-03 07:48] LABS: Basophils Absolute Auto 0.1 X10*3/uL (0.0-0.2); Eosinophils Absolute Auto 0.3 X10*3/uL (0.0-0.4); Eosinophils Percent Auto 3.7 % (0-4); Hematocrit 44.4 % (42.0-52.0); Hemoglobin 14.8 g/dl (14.0-18.0); Imm Gran Abs Auto 0.02 X10*3/uL (0.00-0.03); Imm Gran Pct Auto 0.3 % (0.0-0.4); Lymphocytes Absolute Auto 1.5 X10*3/uL (1.2-4.9); Lymphocytes Percent Auto 18.9 % (20-40); Mean Corpuscular HGB Conc 33.3 g/dl (31.0-36.0); Mean Corpuscular Hemoglobin 31.8 pg (27.0-33.0); Mean Corpuscular Volume 95.3 fL (80.0-98.0); Mean Platelet Volume 9.9 fL (9.4-12.4); Monocytes Absolute Auto 0.8 X10*3/uL (0.1-1.2); Neutrophils Absolute Auto 5.1 x10*3/uL (2.0-8.3); Neutrophils Percent Auto 66.1 % (45-73); Platelet Count 246 X10*3/uL (160-400); Red Blood Count 4.66 X10*6/uL (4.60-5.80); Red Cell Distribution Width 13.1 % (11.0-16.0); White Blood Count 7.7 X10*3/uL (4.8-10.8)
[2024-03-03 07:53] LABS: Estimated Average Glucose 126 mg/dL
[2024-03-03 08:22] LABS: Creatinine Urine 57.11 mg/dL; Microalbum/Creatinine Ratio Ur 239.8 ug/mg cr (<30); Protein/Creatinine Ratio, Ur 0.39 (<0.2); Total Protein Urine Random 22 mg/dL (<12)
[2024-03-03 08:25] LABS: Alanine Aminotransferase 12 U/L (0-40); Alkaline Phosphatase 86 U/L (39-117); Anion Gap 12 (12-20); Aspartate Amino Transferase 15 U/L (5-37); Bilirubin Total 0.8 mg/dL (0.0-1.0); Blood Urea Nitrogen 27 mg/dL (9-16); Carbon Dioxide 22 mmol/L (22-29); Chloride 109 mmol/L (96-108); Cholesterol 142 mg/dL (<200); Estimated Glomerular Filt Rate 53; Glucose Fasting 120 mg/dL (60-99); HDL Cholesterol 52 mg/dL (>40); LDL Cholesterol Calculated 80 mg/dL (<100); Potassium 4.3 mmol/L (3.3-5.1); Sodium 139 mmol/L (135-145); Total Protein 6.9 g/dL (6.5-8.0); Triglycerides 51 mg/dL (<150)
[2024-03-03 08:26] LABS: Appearance Urine Clear; Color Urine Yellow; Glucose Urine UA Negative (Negative); Leukocyte Esterase Urine Negative (Negative); Nitrite Urine Negative (Negative); PH 6.5 (5.0-9.0); Specific Gravity - Urine 1.015 (1.005-1.025); Urine Blood Negative (Negative); Urine Ketones Negative (Negative); Urine Protein Trace mg/dL (Neg-Trace)
[2024-03-03 08:29] LABS: Parathyroid Hormone Intact 147.3 pg/mL (8.7-77.1)
[2024-03-03 08:32] LABS: Anion Gap 12 (12-20); Blood Urea Nitrogen 29 mg/dL (9-16); Calcium 9.3 mg/dL (8.4-10.2); Carbon Dioxide 24 mmol/L (22-29); Chloride 109 mmol/L (96-108); Estimated Glomerular Filt Rate 46; Magnesium 2.2 mg/dL (1.6-2.6); Phosphorus 3.2 mg/dL (2.7-4.5); Potassium 4.5 mmol/L (3.3-5.1); Sodium 140 mmol/L (135-145)
[2024-03-03 08:48] LABS: Vitamin D 25-OH Total 16.3 ng/mL (>30)
== END 2024-03-03 06:55 | disposition home or self-care (01) ==
LOC: HO.LAB 06:54
PROVIDERS: Absent Provider Internal Medicine Nephrology; PCP Internal Medicine Medical Oncology; Visit Provider Internal Medicine Medical Oncology
DX: E11.9 Type 2 diabetes mellitus without complications (principal); E66.9 Obesity, unspecified; E78.01 Familial hypercholesterolemia; N18.31 Chronic kidney disease, stage 3a
CPT/HCPCS: 36415; 80051; 80053; 80061; 81003; 82040; 82043; 82306; 82310; 82565; 82570; 83036; 83735; 83970; 84100; 84156; 84520; 85025

== ENCOUNTER 2024-05-26 06:55 | Outpatient (REF) | payer OTHER, MEDICARE, SELFPAY ==
[2024-05-26 07:18] LABS: MANUAL DIFF FLAG NO
[2024-05-26 07:40] LABS: Basophils Absolute Auto 0.1 X10*3/uL (0.0-0.2); Eosinophils Absolute Auto 0.2 X10*3/uL (0.0-0.4); Eosinophils Percent Auto 3.3 % (0-4); Hematocrit 43.3 % (42.0-52.0); Hemoglobin 14.3 g/dl (14.0-18.0); Imm Gran Abs Auto 0.01 X10*3/uL (0.00-0.03); Imm Gran Pct Auto 0.1 % (0.0-0.4); Lymphocytes Absolute Auto 1.3 X10*3/uL (1.2-4.9); Lymphocytes Percent Auto 17.9 % (20-40); Mean Corpuscular Hemoglobin 31.7 pg (27.0-33.0); Mean Platelet Volume 9.5 fL (9.4-12.4); Monocytes Absolute Auto 0.7 X10*3/uL (0.1-1.2); Monocytes Percent Auto 10.1 % (2-11); Neutrophils Absolute Auto 4.9 x10*3/uL (2.0-8.3); Neutrophils Percent Auto 67.6 % (45-73); Platelet Count 269 X10*3/uL (160-400); Red Blood Count 4.51 X10*6/uL (4.60-5.80); Red Cell Distribution Width 13.5 % (11.0-16.0); White Blood Count 7.3 X10*3/uL (4.8-10.8)
[2024-05-26 07:55] LABS: Estimated Average Glucose 123 mg/dL; Hemoglobin A1C 151.2419 umol/L; Hemoglobin A1c % 5.9 % (<6.0); Total Hemoglobin (HGBA1C) 3681.2516 umol/L
[2024-05-26 08:20] LABS: Alanine Aminotransferase 13 U/L (0-40); Albumin Level 3.9 g/dL (3.5-5.0); Alkaline Phosphatase 93 U/L (39-117); Anion Gap 14 (12-20); Aspartate Amino Transferase 13 U/L (5-37); Bilirubin Total 0.9 mg/dL (0.0-1.0); Blood Urea Nitrogen 23 mg/dL (9-16); Calcium 9.3 mg/dL (8.4-10.2); Carbon Dioxide 23 mmol/L (22-29); Chloride 108 mmol/L (96-108); Cholesterol 152 mg/dL (<200); Estimated Glomerular Filt Rate > 60; Glucose Fasting 117 mg/dL (60-99); HDL Cholesterol 58 mg/dL (>40); LDL Cholesterol Calculated 84 mg/dL (<100); Potassium 4.6 mmol/L (3.3-5.1); Sodium 140 mmol/L (135-145); Total Protein 7.1 g/dL (6.5-8.0); Triglycerides 51 mg/dL (<150)
[2024-05-26 08:50] LABS: Prostate Specific Antigen 0.52 ng/mL (<0.05-4.0)
== END 2024-05-26 06:56 | disposition home or self-care (01) ==
LOC: HO.LAB 06:55
PROVIDERS: PCP Internal Medicine Medical Oncology; Visit Provider Internal Medicine Medical Oncology
DX: N40.0 Benign prostatic hyperplasia without lower urinary tract symptoms (principal); E11.9 Type 2 diabetes mellitus without complications; E78.01 Familial hypercholesterolemia; Z12.5 Encounter for screening for malignant neoplasm of prostate
CPT/HCPCS: 36415; 80053; 80061; 83036; 84153; 85025

== ENCOUNTER 2024-07-31 09:42 | Outpatient (REF) | payer OTHER, MEDICARE, SELFPAY ==
--- NOTE | ~2024-07-31 | XR_ITS ---
EXAMINATION: XR PELVIS CLINICAL INFORMATION: Pain in unspecified hip M25.559. COMPARISON: XR Left hip 12/13/2007 (report only) TECHNIQUE: AP view of the pelvis. FINDINGS: Mild narrowing of the superior right hip joint space. The left hip appears normal. No fracture or malalignment. Mild bilateral sacroiliac osteoarthritis. 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 Electronically signed by: Lew Mendez MD 09/07/2024 10:07 AM VENU ALAN
--- OUTSIDE RECORDS SUMMARY | 2024-08-02 14:07 | XMS_ITS | Continuity of Care Document ---
Author Name [facility] Organization [facility] Care Team Providers Care Front Desk Specialist Name Role Phone [facility] Unavailable Unavailable Problems Combined list of problems from Department of [facility] and Veterans [facility] facilities. It does not include entries that were removed or entered in error. Problem Status Onset Date Problem Type Date of Resolution Comments Source Benign prostatic hyperplasia Active Condition D[facility] Diabetes mellitus type 2 Active Condition [facility] Essential hypertension Active Condition [facility] History of DVT Right LE Active Condition Nov 27, 2016 Entered By: ANDRADE RAMACHANDRAN Comment: 05/2016 [facility] [place] [facility] History of Pulmonary Emboli Active Condition Nov 27, 2016 Entered By: ANDRADE RAMACHANDRAN Comment: 05/2016 - [facility] [place] [facility] Hyperlipidemia Active Condition [facility] Primary Care Physician Active Condition Nov 27, 2016 Entered By: ANDRADE RAMACHANDRAN Comment: [facility] Red [facility] Colonoscopy Active Condition Nov 27, 2016 Entered By: ANDRADE RAMACHANDRAN Comment: Age 75 - no further exams per GI [facility] [place] [place] [facility] Testicular Mass-Benign Active Condition Jun 18, 2014 Entered By: JOSE DE JESUS PISANO Comment: removal of left testicle 2011 DERRY Diagnosis: ICD-10-CM Z46.1 Encounter for fitting and adjustment of hearing aid Active Diagnosis [facility] [place] [place] [facility] Diagnosis: ICD-10-CM H90.3 Sensorineural hearing loss, bilateral Active Diagnosis [facility] [place] [facility] Medications Combined list of outpatient medications from Department of [facility] and Veterans Affairs facilities.Medications provided include 1) [...] DAILY ORAL ACTIVE PUNEET RAMACHANDRAN SA 2018 [email or web address] [employer] SET[place] [facility] Allergies, Adverse Reactions, Alerts Combined list of allergies from Department of Defense and Veterans Affairs facilities. It does not include entries that were removed or entered in error. Substance Category Reaction Severity Reaction type Status Date Reported Comments Source SHELLFISH Propensity to adverse reactions to food (finding) Urticaria active 4 [place] [employer] [email or web address] Immunizations Combined list of available immunizations from the Department of Defense and Veterans Affairs facilities. Immunization Series Date Given Administered By Site Reaction Lot Number CVX Code Drug Pulp Cooker Status Comments Source INFLUENZA, SEASONAL, INJECTABLE 2017 141 complet ed Employer [email or web address] [employer] SET[place] [facility] FLU,3 YRS (HISTORICAL) 2015 88 complet ed [facility] [email or web address] K[employer] SETS [facility] PNEUMOCOCCAL CONJUGATE PCV 13 2014 133 complet ed [facility] IELD FLU,3 YRS (HISTORICAL) 2014 88 complet ed form his work [place] [email or web address] K[employer] EnterpriseCHU SETS [facility] FLU,3 YRS (HISTORICAL) 2013 88 complet ed Outside Provider [email or web address] [employer] [place] [facility] TDAP 2011 115 complet ed [email or web address] K[employer] [facility] [facility] Encounters Combined list of: 1) Encounters from Department of Veterans Affairs facilities going back up to thelast 18 months. 2) Encounters from the Department of Defense facilities going back up to 280 months. Location Location Details Encounter Type Encounter Number Reason For Visit Attending Provider ADM Date DC Date Status Disposition Source [facility] [email or web address] [facility] HE[facility]/CH ECKING [id number] Diagnos is: ICD-10- CM H90.3 Sensori neural hearing loss, bilater al
Lashae ZUNIGA E 07/09 [place] [facility] [facility] HEARING AID EXAM BOTH EARS [id number] Diagnos is: ICD-10- CM H90.3 Sensori neural hearing loss, bilater al
FAB HARE XAVIER FRANKEL 09/24 [place] [facility] [place] [facility] [place] [facility] HE[facility] [id number] Diagnos is: ICD-10- CM Z46.1 Encount er for fitting and adjustm ent of hearing aid<br/ > RAFAL BUSTAMANTE JOSTIN 10/21 [place] [facility] [place] [facility] [place] [facility] Outpatient Encounter [id number] 10/29 [place] [facility] [place] [facility] Social History Combined list of available smoking, tobacco, and other social history from Department of Defense and Veterans Affairs facilities. Social History Type Response Date Comment [facility] e Tobacco smoking status [facility]-TOBACCO NEVER USED 01/08/20 18 DERRY History of tobacco use LIFETIME NON-TOBACCO USER 8 DERRY History of tobacco use LIFETIME NON-TOBACCO USER 7 DERRY History of tobacco use LIFETIME NON-TOBACCO USER 4 DERRY Advance Directives List of completed, amended, or rescinded Advance Directives on record at Department of Veterans Affairs facilities. An actual copy of the Directive is not included. Date Advance Directive Provider Source 07/25/2015 ADVANCE DIRECTIVE ALICJA SANDHU
== END 2024-07-31 09:43 | disposition home or self-care (01) ==
LOC: HO.HOSX 09:42
PROVIDERS: PCP Internal Medicine Medical Oncology; Visit Provider Orthopaedic Surgery
DX: M25.559 Pain in unspecified hip (principal); M70.62 Trochanteric bursitis, left hip
CPT/HCPCS: 20610; 72170; J0665; J1100; J2003

== ENCOUNTER 2024-07-31 09:42 | Outpatient (AMB) | payer OTHER, MEDICARE, SELFPAY ==
--- NOTE | 2024-07-31 09:45 | A.OFFVIS_ITS ---
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 Patient reports that he has had ongoing and worsening pain of left hip, pain is felt in the posterior aspect of the hip. Pain is felt after periods of sitting and at night, pain feels better with movement. He takes Tylenol PRN pain with releif. He denies numbness and tingling . 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 Patient reports that he has had ongoing and worsening pain of left hip, pain is felt in the posterior aspect of the hip. Pain is felt after periods of sitting and at night, pain feels better with movement. He takes Tylenol PRN pain with releif. He denies numbness and tingling . 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 Office Procedures Joint Inj/Aspir; Non-Pain Clin Joint Injection/Drain Details: Injected 1 mL of Decadron and 3 mL 1% lidocaine and 3 mL of 0.25% Marcaine. Site was prepped using aseptic technique. Patient tolerated the procedure well. Shoulders, Hips, Knees, Hip Injection Large Joint : Left Hip (Greater trochanter bursa) Coding Procedure code (CPT) selection complete Results Reviewed Results Reviewed: I personally reviewed relevant radiographs. Mild left hip osteoarthritis Assessment & Plan Assessment & Plan (1) Greater trochanteric bursitis of left hip: Code(s): M70.62 - Trochanteric bursitis, left hip Category: Medical Plan: This is a 89-year-old gentleman with greater trochanteric bursitis of the left hip. I discussed the diagnosis with him. The differential includes bursitis, tendonitis, spinal stenosis. His exam is unimpressive and his complaint of pain with extended sitting is most consistent with a neurologic cause i.e. spinal stenosis. Nevertheless we injected his left greater trochanteric bursa today to see if that is helpful. If it is he can return every 3-4 months for injections if he would like. If it is not helpful we may consider referral to physical therapy and or pain management for more invasive injections.. Orders: Orders XR pelvis 1-2V Today M25.559 - Pain in unspecified hip Coding Level of Care Code New Pt Level 3 (57998) Diagnoses Greater trochanteric bursitis of left hip M70.62 CPT Codes Shoulders, Hips, Knees, - Hip Injection Large Joint : Left Hip ([id number])
[2024-07-31 09:53] VITALS: BMI 32.5
--- OUTSIDE RECORDS SUMMARY | 2024-08-02 14:05 | XMS_ITS ---
Author Organization Richie Hatfield III, MD Address [address] [place] [address] [address] [place] [address] Care Team Providers Care Husker Operator Name Role Phone Richie Hatfield Primary Care Provider [phone] Allergies Allergen (clinical drug ingredient) Drug/Non Drug Allergy documented on EMR Reaction Allergy Type Onset Date Status Shellfish (FN) Shellfish-derived Products hives Drug Allergy Active Iodine Unknown Drug Allergy Active Results Component Value Reference Range Notes Lipid Panel Reviewed date:06/26/2024 12:36:47 PM Interpretation: Performing Lab:[facility], [address] [place] [id number] Notes/Report: Triglycerides 51 <150 mg/dL Desirable Triglyceride: [...] A1c Reviewed date:06/26/2024 12:36:47 PM Interpretation: Performing Lab:[facility], [address] [place] [id number] Notes/Report: Hemoglobin A1c % 5.9 <6.0 % [...] average glucose, using the formula of the L4T-Endifgh Average Glucose study (ADAG), Diabetes Care, Vol.31,#8, [...] 05/27/2024 Active Mupirocin 2 % 1 application 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 11/29/2023 Active amLODIPine [...] Date Provider Diagnosis Richie Hatfield III, MD [address] [place] [address] [place] [address] 05/26/2024 Richie Hatfield Benign prostatic hyperplasia, presence [...] day 05/27/2024 Mupirocin 2 % 1 application 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 11/29/2023 amLODIPine Besylate [...] Appt Details Follow Up: 5 M, October, Reaso n: OV, Routine check-up Provider Name:Richie Hatfield, 10/27/2024 09:00:00 AM, [address] [place] [address] [address], [place], [address], Provider Name:Richie Hatfield, 03/12/2025 02:00:00 PM, [address] [place] [address] [address], [facility], [address], Progress Notes * GONZALES Esdras GDOB: [birth year] (89 yo M)Acc No.[id number]:05/26/2024 Progress Notes Patient:?Esdras GONZALES Provider:?Richie Hatfield MD :1935???Age:89 Y???Sex:Male Lan e:05/26/2024 Address:[address] [place] [address], [place] [place]-[id number] Subjective: * Chief Complaints: * ???HypertensionChronic low b ack painDiabetesBenign prostatic hypertrophy, With urine retentionObesityHistory of pulmonary emboliAnticoagulatedRight internal carotid occlusionHistory of CVA * HPI: ???COVID-19 Screening:?Questions?Have you experienced fever, chills, cough, sore throat, shortness of breath, difficulty breathing, muscle aches, loss of taste or smell??No ?Have you been exposed to the virus within the last 10 days??No ?Have you travelled internationally in the last 10 days??No ?Have you been exposed to COVID-19 in the past??No ???:? The 89-year-old male patient has been feeling [...] alone. Blood Sugar Level is 117. * ROS:?General/Constitutional:?pain?Lumbar spine, otherwise only normal aches and pains.?Chills?denies.?Fatigue?admits.?Fever?denies.?ENT:?Decreased hearing?in both ears.?Respiratory:?Cough?denies.?Cardiovascular:?Chest pain with exertion?denies.?Dyspnea on exertion?denies.?Shortness of breath?denies.?Gastrointestinal:?Constipation?occasional.?Decreased appetite?denies.?Diarrhea?denies.?Heartburn?occasional.?Nausea?denies.?Rectal bleeding?denies.?Vomiting?denies.?Hematology:?bruising?denies.?petechiae?denies.?Swollen glands?none have been noted.?Genitourinary:?Frequent urination?three times a night.?Musculoskeletal:?Muscle aches?denies.?Painful joints?Lumbar spine hips shoulders.?Sciatica?denies.?Weakness?denies.?Skin:?Itching?denies.?Rash?denies.?Skin lesion(s)?denies.?Neurologic:?Difficulty speaking?denies.?Dizziness?denies.?Headache?denies.?Low back pain?that is chronic.?Psychiatric:?Depressed mood?denies.? * Medical History:? * Surgical History:?Right L3-L 4 extraforaminal microdiscectomy [id number] surgery 09/2016No history * Hospitalization/Major Diagno stic Procedure:?No history * Family History:?Father: dece ased 83 yrs, myocardial infarction, diabetes mellitus, diagnosed with DM.?Mother: 67 yrs, uterine cancer, diagnosed with Cancer.?Siblings: .?2 sister(s) . .? His sisters have diabetes and hypetension. He has no children. He is not aware of any inherited cancer family syndrome. He is not aware of any family history of mental illness or substance use disorder, or addictions. Sisters . 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 * Medications:?TakingFinasteri de 5 MG Tablet 1 tablet Orally Once [...] reviewed and reconciled with the patient * Allergies:?Shellfish-derived Products: hivesIodineno[Allergies Verified] Objective: * Vitals:?Ht: 70, Wt:221, BMI: 31.71, BP:123/71, HR:64, Temp:97.5, Wt-k.24. * Examination: ???General Examination: ?GENERAL APPEARANCE:?pleasant, well nourished, well developed, in no acute distress, calm and relaxed, obese, elderly man.?HEAD:?atraumatic, normocephalic.?EYES:?eomi, perrla, anicteric, conjugate.?EARS:?normal.?NOSE:?septum intact.?ORAL CAVITY:?normal, unremarkable.?NECK/THYROID:?no jugular venous distention, no carotid bruit, thyroid normal.?LYMPH NODES:?no enlarged lymph nodes,spleen normal.?SKIN:?no suspicious lesions, anicteric.?HEART:?no clicks, gallops, murmurs, or rubs, regular rhythm, S1, S2 normal, no s3, or vascular bruits.?LUNGS:?clear to auscultation .?BREASTS:??no masses palpable bilaterally.?ABDOMEN:?bowel sounds normal, no ascites, no organomegaly, no mass, centripital obesity.?RECTAL EXAM:?not examined.?MUSCULOSKELETAL:?extremities unremarkable, no clubbing, cyanosis or edema, Since healed surgical scar over her lumbar spine, decreased range of motion lumbar spine, generalized lower extremity weakness.?PERIPHERAL PULSES:?normal.?NEUROLOGIC:?alert and oriented, cranial nerves 2-12 grossly intact, deep tendon reflexes 2+ symmetrical, motor strength normal upper? extremities, sensory exam intact,, Legs weak, gait unsteady, ambulates using wheeled walker, able to ascend examining table without difficulty.?PSYCH:?alert, oriented.? Assessment: * Assessment: 1.?Type 2 diabetes mellitus without complications - E11.9 (Primary)???Notes :His diabetes has been controlled.? He is on a statin medication lisinopril and metformin.???2.?Benign prostatic hyperplasia, presence of lower urinary tract symptoms unspecified, unspecified morphology - N40.0???Notes :He has an enlarged prostate with a residual of about 300 mL.? He is on tamsulosin and finasteride and sees urologist regularly.? No change in his regimen was made today.???3.?Obesity - E66.9???Notes :He has lost 2 pounds.? His body mass index is 31.7.? He is diabetic.? We had a discussion of nutrition today.? We made a plan to lose weight through a diabetic diet restricted in calories at a rate of one half of a pound per week.???4.?Essential hypertension - I10???Notes :His blood pressure is stable at 123/71. 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 He did not request any additional medication.???6.?Hyperlipidemia, unspecified hyperlipidemia type - E78.5???Notes :His lipids appear to be well controlled. I have recommended weight loss and a diet low in animal fat.???7.?Pulmonary emboli - I26.99???Notes :He is no longer anticoagulated. He has had no signs or symptoms of DVT or embolism.???8.?Right internal carotid occlusion - I65.21???Notes :This finding was on a recent CT angiogram of the neck in the context of a small stroke. He will continue on anticoagulation.??? Plan: * Treatment: 2.?Benign prostatic hyperpla david, presence of lower urinary tract symptoms unspecified, unspecified morphology? Continue Finasteride Tablet, 5 MG, 1 tablet, Orally, Once a day.?LAB: PROFILE, FASTING (COMPREHENSIVE METABOLIC) ?LAB: CBC WITH AUTO DIFF ?LAB: Lipid Panel ?LAB: Hemoglobin A1c 3.?Obesity?LAB: PROFILE, FASTING (COMPREHENSIVE METABOLIC) ?LAB: CBC WITH AUTO DIFF ?LAB: Lipid Panel ?LAB: Hemoglobin A1c 4.?Others? Continue Aspirin 81 Tablet Delayed Release, 81 MG, 1 tablet, Orally, Once a day;?Continue Lisinopril Tablet, 10 MG, 1 tablet, Orally, Once a day;?Continue Atorvastatin Calcium Tablet, 10 MG, 1 tablet, Orally, Once a day;?Continue Tamsulosin HCl Capsule, 0.4 MG, 1 capsule, Orally, Twice a day;?Continue metFORMIN HCl Tablet, 500 MG, TAKE 1 tabletBY MOUTH with meals Orally Once a day 90 days;?Continue amLODIPine Besylate Tablet, 10 MG, 1 tablet, Orally, Once a day;?Continue Mupirocin Ointment, 2 %, 1 application, Externally, Twice a day.?? * Procedure Codes:? * Preventive Medicine:? ??Counseling:?Care goal follow-up plan:?Counseling for abnormal BMI given?Yes ?Above Normal BMI Follow-up?Dietary management education, guidance, and counseling, Dietary needs education, Exercise promotion: strength training, Exercise promotion: stretching, Feeding regime, Giving encouragement to exercise, Lifestyle education regarding diet, Nutrition / feeding management, Nutrition therapy, Prescribed activity/exercise education, Prescribed diet education, Prescribed dietary intake, Special diet education, Weight monitoring , Intervention, Order not done: Medical or Other reason not done ??DM Care Plan:?Patient Lifestyle Goals?Patient wants to be able to manage diabetes without too much effort.?Treatment Goals?Blood Sugars less than < 115.?Barriers?no barriers.?Self-Managment Goals?Work on weight loss, with a goal of losing 1 lb per week.? * Follow Up:?5 M, October (Reaso n: OV, Routine check-up) * Images: * Sign off status: Completed true * Provider:?Richie Hatfield MD Date:?11/2023 Generated for Printi ng/Kan/eTransmitting on:?08/02/2024 02:04 PM EST History and Physical Notes * HPI (History of Present Illness) Category Sub-Category Detail Notes COVID-19 Screening Questions Have you expe rienced fever, chills, cough, sore throat, shortness of breath, difficulty breathing, muscle aches, loss of taste or smell?: No Have you been exposed to the virus withi n the last 10 days?: No Have you travelled internationally in city hospital last 10 days?: No Have you [...]
--- OUTSIDE RECORDS SUMMARY | 2024-08-02 14:05 | XMS_ITS ---
Author Organization Richie Hatfield III, MD Address [address] [place] [address] [place] [address] Care Team Providers Care Wiener Packer Name Role Phone Richie Hatfield Primary Care Provider REASON FOR VISIT Message Social History Sex Assigned At : Social History Observation Description Sex Assigned At Male Encounters Encounter Location Date Provider Diagnosis Richie Hatfield III, MD [address] [place] [address] [place] [address] 03/14/2024 Richie Hatfield Plan Of Treatment Next Appt Details Provider Name:Richie Hatfield, 10/27/2024 09:00:00 AM, [address] [place] [address] [place], [address], Provider Name:Richie Hatfield, 03/12/2025 02:00:00 PM, [address] [place] [address] [place], [address], Progress Notes * Esdras GONZALES GDOB: [birth year] (88 yo M)Acc No.[id number]:03/14/2024 Patient:?Esdras Gonzales :1935???Age:88 Y???Sex:Male Address:[place] [address] * true * Date:? Generated for Baljinder medina/Kan/Richarditting on:?08/02/2024 02:05 PM EST
--- OUTSIDE RECORDS SUMMARY | 2024-08-02 14:05 | XMS_ITS ---
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 Referral Priority Routine REASON FOR VISIT Ortho Referral Social History Sex Assigned At : Social History Observation Description Sex Assigned At Male Encounters Encounter Location Date Provider Diagnosis Richie Hatfield III, MD [address] [place] [address] [place] [address] 06/26/2024 Richie Hatfield Plan Of Treatment Referrals Referral Date Details 06/26/2024 06/26/2024, Evaluate and Treat Left hip pain, Orthopedic Surgeons [facility] Next Appt Details Provider Name:Richie Hatfield, 10/27/2024 09:00:00 AM, [address] [place] [address] [place], [address], Provider Name:Richie Hatfield, 03/12/2025 02:00:00 PM, [address] [place] [address] [address] [address], [place], [address], Progress Notes * Esdras GONZALES GDOB: [birth year] (89 yo M)Acc No.[id number]:06/26/2024 Patient:?Esdras GONZALES :1935???Age:89 Y???Sex:Male Address:[address] [place] [address] [place] [address] Subjective: * Chief Complaints: * ???Ortho Referral * Medical History:? * Surgical History:? * Hospitalization/Major Diagno stic Procedure:? * Medications:? Objective: * Vitals:? * Physical Examination:? Assessment: Plan: * Treatment: * Procedure Codes:? * true * Date:? Generated for Baljinder medina/Kan/Courtneysmitting on:?08/02/2024 02:04 PM EST Consultation Request Notes Referral Date Referring Provider Referred Provider Not es 06/26/2024 Richie Hatfield [facility], Orthopedic Surgeons Evaluate and Treat Left hip pain
--- OUTSIDE RECORDS SUMMARY | 2024-08-02 14:05 | XMS_ITS | Patient Health Record ---
Author Organization Richie Hatfield III, MD Address [address] [place] [address] [address] [place] [id number] Care Team Providers Care Environmental Coordinator Name Role Phone Richie Hatfield Primary Care Provider Allergies Allergen (clinical drug ingredient) Drug/Non Drug Allergy documented on EMR Reaction Allergy Type Onset Date Status Shellfish (FN) Shellfish-derived Products hives Drug Allergy Active Iodine Unknown Drug Allergy Active Results Component Value Reference Range Notes Lipid Panel Reviewed date:06/26/2024 12:36:47 PM Interpretation: Performing Lab:[facility], [address] [place] [phone] Notes/Report: Triglycerides 51 <150 mg/dL Desirable Triglyceride: [...] A1c Reviewed date:06/26/2024 12:36:47 PM Interpretation: Performing Lab:[address] [phone] Notes/Report: Hemoglobin A1c % 5.9 <6.0 % [...] average glucose, using the formula of the [id number] Average Glucose study (ADAG), Diabetes Care, Vol.31,#8, Mar. 2007 Diabetic Eye Exam Reviewed date:06/22/2024 11:42:52 AM Interpretation:undefined Performing Lab: Notes/Report: undefined Urinalysis Reviewed date:03/04/2024 07:04:59 AM Interpretation: Performing Lab:[facility], [address] [place] [phone] Notes/Report: Color Urine Yellow Appearance Urine Clear PH 6.5 5.0-9.0 Glucose Urine UA Negative Negative mg/dL Urine Blood Negative Negative Specific [place] - Urine 1.015 1.005-1.025 Urine Protein Trace Neg-Trace mg/dL Urine Ketones Negative Negative mg/dL Nitrite Urine Negative Negative Leukocyte Esterase Urine Negative Negative Comprehensive [place]. Panel Fa Reviewed date:03/04/2024 07:04:59 AM Interpretation: Performing Lab:[address] [phone] Notes/Report: Sodium 139 135-145 mmol/L Potassium 4.3 3.3-5.1 mmol/L Chloride 109 96-108 mmol/L Carbon Dioxide 22 22-29 mmol/L Anion Gap 12 12-20 Blood Urea Nitrogen 27 9-16 mg/dL Creatinine 1.28 0.5-1.4 mg/dL Estimated Glomerular Filt Rate 53 NOTE: For -Syrian individuals, multiply the result by 1.210. Chronic Kidney Disease: Estimated GFR < 60 mL/min/1.73m2 Severe Kidney Disease: Estimated GFR < 15 mL/min/1.73m2 Glucose Fasting 120 60-99 mg/dL A fasting glucose from 100-125 mg/dl is considered impaired (pre-diabetes). Calcium 9.0 8.4-10.2 mg/dL Bilirubin Total 0.8 0.0-1.0 mg/dL Aspartate Amino Transferase 15 5-37 U/L Alanine Aminotransferase 12 0-40 U/L Total Protein 6.9 6.5-8.0 g/dL Albumin Level 4.0 3.5-5.0 g/dL Alkaline Phosphatase 86 39-117 U/L Electrolytes Reviewed date:03/04/2024 07:04:59 AM Interpretation: Performing Lab:[address] [phone] Notes/Report: Sodium 140 135-145 mmol/L Potassium 4.5 3.3-5.1 mmol/L Chloride 109 96-108 mmol/L Carbon Dioxide 24 22-29 mmol/L Anion Gap 12 12-20 Blood Urea Nitrogen Reviewed date:03/04/2024 07:04:59 AM Interpretation: Performing Lab:[facility], [address] [place] [phone] Notes/Report: Blood Urea Nitrogen 29 9-16 mg/dL Creatinine Reviewed date:03/04/2024 07:04:59 AM Interpretation: Performing Lab:[address] [phone] Notes/Report: Creatinine 1.44 0.5-1.4 mg/dL Estimated Glomerular Filt Rate 46 NOTE: For -Syrian individuals, multiply the result by 1.210. Chronic Kidney Disease: Estimated GFR < 60 mL/min/1.73m2 Severe Kidney Disease: Estimated GFR < 15 mL/min/1.73m2 Calcium Reviewed date:03/04/2024 07:04:59 AM Interpretation: Performing Lab:[address] [phone] Notes/Report: Calcium 9.3 8.4-10.2 mg/dL Phosphorus Reviewed date:03/04/2024 07:04:59 AM Interpretation: Performing Lab:[facility], [address] [place] [phone] Notes/Report: Phosphorus 3.2 2.7-4.5 mg/dL Magnesium Reviewed date:03/04/2024 07:04:59 AM Interpretation: Performing Lab:[facility], [address] [place] [phone] Notes/Report: Magnesium 2.2 1.6-2.6 mg/dL Albumin Level Reviewed date:03/04/2024 07:04:59 AM Interpretation: Performing Lab:[facility], [address] [place] [phone] Notes/Report: Albumin Level 4.0 3.5-5.0 g/dL Lipid Panel Reviewed date:03/04/2024 07:04:59 AM Interpretation: Performing Lab:[facility], [address] [place] [phone] Notes/Report: Triglycerides 51 <150 mg/dL Desirable Triglyceride: less than 150 mg/dL Borderline High Triglyceride 150-199 mg/dL High Triglyceride: 200-499 mg/dL Very High Triglyceride: greater than or equal to 5OO mg/dL Cholesterol 142 <200 mg/dL Desirable Cholesterol: less than 200 mg/dL Borderline High Cholesterol: 200-239 mg/dL High Cholesterol: greater than 239 mg/dL LDL Cholesterol Calculated 80 <100 mg/dL Desirable LDL: less than 100 mg/dL Near Optimal/Above Optimal LDL: 110-129 mg/dL Borderline High LDL: 130-159 mg/dL High LDL: 160-189 mg/dL Very High LDL: greater than or equal to 190 mg/dL HDL Cholesterol 52 >40 mg/dL Desirable HDL: greater than 40 mg/dL Note: This HDL assay may give artificially low results in patients with liver disease. Vitamin D 25-OH Total Reviewed date:03/04/2024 07:04:59 AM Interpretation: Performing Lab:[facility], [address] [place] [phone] Notes/Report: Vitamin D 25-OH Total 16.3 >30 ng/mL Health Based Reference Values* < 20 ng/mL Deficient 20-30 ng/mL Insufficient > 30 ng/mL Sufficient *Yakov JADE. N Engl J Med. 2007;357:266-280 Care must be taken in interpreting Vitamin D results from different laboratories and methodologies. Published data demonstrated that results from patients undergoing hemodialysis may show a negative bias when tested with various automated 25-OH vitamin D assays when compared to LC-MS/MS. When testing samples from patients whose predominant form of Vitamin D is Vitamin D2, such as patients receiving Vitamin D2 supplementation, results that are subtherapeutic should be confirmed with another method such as LC-MS/MS. Microalbumin, Random Reviewed date:03/04/2024 07:04:59 AM Interpretation: Performing Lab:[facility], [address] [place] [phone] Notes/Report: Creatinine Urine 57.11 Microalbumin Urine 137.0 Microalbum/Creatinine Ratio Ur 239.8 <30 ug/mg cr Albumin/Creatinine Ratio Reference Ranges: Normal: < 30 ug/mg creatinine Microalbuminuria: 30 - 300 ug/mg creatinine Clinical Albuminuria: > 300 ug/mg creatinine Protein Creatinine Ratio, Ur Reviewed date:03/04/2024 07:04:59 AM Interpretation: Performing Lab:[address] [phone] Notes/Report: Total Protein Urine Random 22 <12 mg/dL Protein/Creatinine Ratio, Ur 0.39 <0.2 The spot urine protein:creatinine ratio may increase to 0.3 during normal . Hemoglobin A1c Reviewed date:03/04/2024 07:04:59 AM Interpretation: Performing Lab:[facility], [address] [place] [phone] Notes/Report: Hemoglobin A1c % 6.0 <6.0 % Hemoglobin A1C Reference Range Adults: 4.8 - 6.0 % Non diabetic: < 6.0 % Goal: < 7.0 % Additional Action Suggested: > 8.0 % Note: Hemoglobin A1c results are invalid for patients with abnormal amounts of HbF. Blood transfusions may impact the HbA1c concentration in the patient sample. Estimated Average Glucose 126 eAG = Estimated average glucose which is %A1C expressed as average glucose, using the formula of the W4M-Hlidjny Average Glucose study (ADAG), Diabetes Care, Vol.31,#8, Mar. 2007 Parathyroid Hormone Intact Reviewed date:03/04/2024 07:04:59 AM Interpretation: Performing Lab:[address] [phone] Notes/Report: Parathyroid Hormone Intact 147.3 8.7-77.1 pg/mL Complete Blood Count Auto Di ff Reviewed date:06/26/2024 12:36:47 PM Interpretation: Performing Lab:[facility], [address] [place] [phone] Notes/Report: White Blood Count 7.3 4.8-10.8 X10*3/uL Red Blood Count 4.51 4.60-5.80 X10*6/uL Hemoglobin 14.3 14.0-18.0 g/dl Hematocrit 43.3 42.0-52.0 % Mean Corpuscular Volume 96.0 80.0-98.0 fL Mean Corpuscular Hemoglobin 31.7 27.0-33.0 pg Mean Corpuscular HGB Conc 33.0 31.0-36.0 g/dl Red Cell Distribution Width 13.5 11.0-16.0 % Platelet Count 269 160-400 X10*3/uL Mean Platelet Volume 9.5 9.4-12.4 fL Neutrophils Percent Auto 67.6 45-73 % Imm Gran Pct Auto 0.1 0.0-0.4 % Lymphocytes Percent Auto 17.9 20-40 % Monocytes Percent Auto 10.1 2-11 % Eosinophils Percent Auto 3.3 0-4 % Basophils Percent Auto 1.0 0-2 % NRBC Pct Auto 0.0 0.0-0.2 /100WBC Neutrophils Absolute Auto 4.9 2.0-8.3 x10*3/u L Imm Gran Abs Auto 0.01 0.00-0.03 X10*3/uL Lymphocytes Absolute Auto 1.3 1.2-4.9 X10*3/u L Monocytes Absolute Auto 0.7 0.1-1.2 X10*3/uL Eosinophils Absolute Auto 0.2 0.0-0.4 X10*3/u L Basophils Absolute Auto 0.1 0.0-0.2 X10*3/uL NRBC Abs Auto 0.000 0.0-0.012 X10*3/uL Comprehensive [place]. Panel Fa st Reviewed date:06/26/2024 12:36:47 PM Interpretation: Performing Lab:[facility], [address] [place] [phone] Notes/Report: Sodium 140 135-145 mmol/L Potassium 4.6 3.3-5.1 mmol/L Chloride 108 96-108 mmol/L Carbon Dioxide 23 22-29 mmol/L Anion Gap 14 12-20 Blood Urea Nitrogen 23 9-16 mg/dL Creatinine 1.06 0.5-1.4 mg/dL Estimated Glomerular Filt Rate > 60 NOTE: For -Syrian individuals, multiply the result by 1.210. Chronic Kidney Disease: Estimated GFR < 60 mL/min/1.73m2 Severe Kidney Disease: Estimated GFR < 15 mL/min/1.73m2 Glucose Fasting 117 60-99 mg/dL A fasting glucose from 100-125 mg/dl is considered impaired (pre-diabetes). Calcium 9.3 8.4-10.2 mg/dL Bilirubin Total 0.9 0.0-1.0 mg/dL Aspartate Amino Transferase 13 5-37 U/L Alanine Aminotransferase 13 0-40 U/L Total Protein 7.1 6.5-8.0 g/dL Albumin Level 3.9 3.5-5.0 g/dL Alkaline Phosphatase 93 39-117 U/L Prostate Specific Antigen Reviewed date:06/26/2024 12:36:47 PM Interpretation: Performing Lab:[facility], [address] [place] [phone] Notes/Report: Prostate Specific Antigen 0.52 <0.05-4.0 ng/mL PSA methodology: Travis Alinity i Chemiluminescent Microparticle Immunoassay (CMIA) Reason For Referral Reason Evaluate and Treat Left hip pain Diagnosis 1 Left hip pain (M25.5 52) Referral Organization Richie Hatfield III, MD Referring Provider First Name Richie Referring Provider Last Name Alysia Referring Provider Speciality Internal M edicine Referred Provider [facility], Orthopedic Surgeons Referred Provider Specialty Orthopedic S urgery General Notes Deyanira Quinones 06/26/2024 12:31:06 PM > Referral faxed with last progress note. Referral Priority Routine Medications Medication SIG (Take, Route, Frequency, Duration) Notes Start Date End Date Status Finasteride 5 MG 1 tablet Orally Once a day 05/27/2024 Active metFORMIN HCl 500 mg TAKE 1 tabletBY with meals Orally Once a day 90 days for 90 Active Mupirocin 2 % 1 application Almond Cutting Machine Tender ally Twice a day 11/29/2023 Active amLODIPine Besylate 10 MG 1 tablet Orall y Once a day Active Atorvastatin Calcium 10 MG 1 tablet Oral ly Once a day Active Lisinopril 10 MG 1 tablet Orally Once a day Active Aspirin 81 81 MG 1 tablet Orally Once a day Active Tamsulosin HCl 0.4 mg TAKE 1 capsule Ora lly Twice a day 90 days for 90 Active Immunizations Vaccine Route Administration Date Status Comme nts Influenza Unknown 06/05/2016 Administered Pneumococcal Unknown 05/23/2015 Administered Influenza, quad Unknown 05/30/2021 Administered Influenza, quad Unknown 04/27/2023 Administered COVID 19 Moderna Unknown 09/27/2020 Administered COVID 19 Moderna Unknown 08/29/2020 Administered COVID 19 Moderna Unknown 06/27/2021 Administered COVID 19 Moderna Unknown 12/02/2021 Administered Social History Tobacco Use: Social History Observation [...] ast year? No Points 0 Interpretation Negative Problems Problem Type SNOMED Code ICD Code Onset Dates Problem Status W/U Status Risk Notes Problem 489875806 Obesity (E66.9) Active confirmed He has lost 2 pounds. His body mass index is 31.7. He is diabetic. We had a discussion of nutrition today. We made a plan to lose weight through a diabetic diet restricted in calories at a rate of one half of a pound per week. Problem 98401216 Type 2 diabetes mellitus without complications (E11.9) Active confirmed His diabetes robb s been controlled. He is on a statin medication lisinopril and metformin. Problem 097167103 Anticoagulated (Z79.01) Active confirmed He is taking warfarin at his INR is 2.2. The Lovenox was discontinued today. He was referred to the anticoagulation clinic at [facility]. His INR will be Between 2.0 and 3.0. Problem 89087600 Essential hypertension (I10) Active confirmed His blood pressure is stable at 123/71. No change in his regimen was made today. Problem 005552192 Cataract (H26.9) Active confirmed His vision has improved and he had no complications from the ophthalmic surgery. Problem 159804393 Benign prostatic hyperplasia, presence of lower urinary tract symptoms unspecified, unspecified morphology (N40.0) Active confirmed He has an enlarged prostate with a residual of about 300 mL. He is on tamsulosin and finasteride and sees urologist regularly. No change in his regimen was made today. Problem 35118864 Hyperlipidemia, unspecified hyperlipidemia type (E78.5) Active confirmed His lipids appear to be well controlled. I have recommended weight loss and a diet low in animal fat. 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 He did not request any additional medication. Problem 70450501 Pulmonary emboli (I26.99) Active confirmed He is no nicole kaden anticoagulated. He has had no signs or symptoms of DVT or embolism. Problem Pure hypercholesterole toan (864787183) Hyperlipidemia type II (E78.01) Active confirmed His only stable and no change in his regimen as needed. Problem 813684521 Cerebrovascular accident (CVA), unspecified mechanism (I63.9) Active confirmed He had a TIA with no permanent deficit on MRI. Problem [id number] Right internal carotid occlusion (I65.21) Active confirmed This finding wa s on a recent CT angiogram of the neck in the context of a small stroke. He will continue on anticoagulation. Vital Signs Heart Rate 64 /min 05/26/2024 Temperature 97.5 degrees Fahrenheit 05/26/2024 Blood pressure diastolic 71 mm Hg 05/26/2024 Height 70 in 05/26/2024 Blood pressure systolic 123 mm Hg 05/26/2024 Weight 221 lbs 05/26/2024 BMI 31.71 kg/m2 05/26/2024 Encounters Encounter Location Date Provider Diagnosis Richie Hatfield III, MD [address] [place] [address] [place] [address] 08/06/2023 Richie Hatfield Impacted cerumen, unspecified ear H61.20 Richie Hatfield III, MD [address] [place] [address] [place] [address] 11/12/2023 Richie Hatfield Type 2 diabetes lila itus without complications E11.9 ; Obesity E66.9 ; Hyperlipidemia type II E78.01 ; Essential hypertension I10 ; Benign prostatic hyperplasia, presence of lower urinary tract symptoms unspecified, unspecified morphology N40.0 and Lumbar disc herniation with myelopathy M51.06 Richie Hatfield III, MD [address] [place] [address] [address] [place] [address] 11/29/2023 Richie Hatfield Cutaneous cyst L72.9 ; Essential hypertension I10 ; Benign prostatic hyperplasia, presence of lower urinary tract symptoms unspecified, unspecified morphology N40.0 ; Type 2 diabetes mellitus without complications E11.9 ; Obesity E66.9 and Lumbar disc herniation with myelopathy M51.06 Richie Hatfield III, MD [address] [place] [address] [address] [place] [address] 12/17/2023 Richie Hatfield Cutaneous abscess of right axilla L02.411 ; Essential hypertension I10 ; Benign prostatic hyperplasia, presence of lower urinary tract symptoms unspecified, unspecified morphology N40.0 ; Type 2 diabetes mellitus without complications E11.9 ; Obesity E66.9 and Lumbar disc herniation with myelopathy M51.06 Richie Hatfield III, MD [address] [place] [address] [address] [place] [address] 03/10/2024 Richie Hatfield Benign prostatic hyperplasia, presence of lower urinary tract symptoms unspecified, unspecified morphology N40.0 ; Type 2 diabetes mellitus without complications E11.9 ; Hyperlipidemia type II E78.01 ; Lumbar disc herniation with myelopathy M51.06 ; Obesity E66.9 and Essential hypertension I10 Richie Hatfield III, MD [address] [place] [address] [address] [place] [address] 05/26/2024 Richie Hatfield Benign prostatic hyperplasia, presence of lower urinary tract symptoms unspecified, unspecified morphology N40.0 ; Type 2 diabetes mellitus without complications E11.9 ; Obesity E66.9 ; Essential hypertension I10 ; Lumbar disc herniation with myelopathy M51.06 ; Hyperlipidemia, unspecified hyperlipidemia type E78.5 ; Pulmonary emboli I26.99 and Right internal carotid occlusion I65.21 Richie Hatfield III, MD [address] [place] [address] [address] [place] [address] 03/13/2024 Richie Hatfield III, MD [address] [place] [address] [address] [place] [address] 03/14/2024 Richie Hatfield III, MD [address] [place] [address] [address] [place] [address] 06/26/2024 Richie Hatfield Assessments Encounter Date Diagnosis (ICD Code) Assessment Notes Treat ment Notes Treatment Clinical Notes 08/06/2023 Impacted cerumen, unspecified ear (ICD-10 - H61.20) He underwent warm water irrigation of both ear canals with removal of the impacted cerumen. No trauma occurred. He reported improved hearing at once. He left the office in stable and ambulatory condition. 11/12/2023 Obesity (ICD-10 - E66.9) He has lost 8 pounds since his last visit. He was encouraged to continue losing weight at this rate until his weight is in the normal range. We have reviewed the elements of a diabetic weight loss diet. 11/12/2023 Type 2 diabetes mellitus without complications (ICD-10 - E11.9) Comprehensive blood work with a hemoglobin A1c, fasting glucose, microalbumin and fasting lipids has been ordered. No change in his regimen was needed today. 11/29/2023 Essential hypertension (ICD-10 - I10) His blood pressure is stable at 128/79. No change in his regimen was made today. 11/29/2023 Cutaneous cyst (ICD-10 - L72.9) The sissy appearance of infected cyst which has ruptured and is now healing. Follow-up visit has been arranged. 12/17/2023 Cutaneous abscess of right axilla (ICD-10 - L02.411) This infection has resolved and no further treatment is needed 12/17/2023 Essential hypertension (ICD-10 - I10) His blood pressure is stable. No change in his regimen was made today. 03/10/2024 Type 2 diabetes mellitus without complications (ICD-10 - E11.9) His diabetes appears to be well controlled at this time. He is compliant with his medications. No change in his regimen was necessary. Recommended weight loss. 03/10/2024 Benign prostatic hyperplasia, presence of lower urinary tract symptoms unspecified, unspecified morphology (ICD-10 - N40.0) He rises from sleep about once a night to urinate. We have discussed various lifestyle modifications he can use to reduce nocturia. 05/26/2024 Type 2 diabetes mellitus without complications (ICD-10 - E11.9) His diabetes has been controlled. He is on a statin medication lisinopril and metformin. 05/26/2024 Benign prostatic hyperplasia, presence of lower urinary tract symptoms unspecified, unspecified morphology (ICD-10 - N40.0) He has an enlarged prostate with a residual of about 300 mL. He is on tamsulosin and finasteride and sees urologist regularly. No change in his regimen was made today. 11/12/2023 Hyperlipidemia type II (ICD-10 - E78.01) Current medications were continued. A fasting lipid profile has been ordered as part of a comprehensive database. 11/29/2023 Benign prostatic hyperplasia, presence of lower urinary tract symptoms unspecified, unspecified morphology (ICD-10 - N40.0) He is under the care of urologist, who has stopped his warfarin. It seems they're planning to do a TURP. 12/17/2023 Benign prostatic hyperplasia, presence of lower urinary tract symptoms unspecified, unspecified morphology (ICD-10 - N40.0) He is under the care of urologist, who has stopped his warfarin. It seems they're planning to do a TURP. 03/10/2024 Hyperlipidemia type II (ICD-10 - E78.01) His only stable and no change in his regimen as needed. 05/26/2024 Obesity (ICD-10 - E66.9) He has lost 2 pounds. His body mass index is 31.7. He is diabetic. We had a discussion of nutrition today. We made a plan to lose weight through a diabetic diet restricted in calories at a rate of one half of a pound per week. 11/12/2023 Essential hypertension (ICD-10 - I10) His blood pressure is stable at 118/71. No change in his regimen was made today. 11/29/2023 Type 2 diabetes mellitus without complications (ICD-10 - E11.9) Comprehensive blood work with a hemoglobin A1c, fasting glucose, microalbumin and fasting lipids has been ordered. No change in his regimen was needed today. 12/17/2023 Type 2 diabetes mellitus without complications (ICD-10 - E11.9) Comprehensive blood work with a hemoglobin A1c, fasting glucose, microalbumin and fasting lipids has been ordered. No change in his regimen was needed today. 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 He did not request any additional medication. 05/26/2024 Essential hypertension (ICD-10 - I10) His blood pressure is stable at 123/71. No change in his regimen was made today. 11/12/2023 Benign prostatic hyperplasia, presence of lower urinary tract symptoms unspecified, unspecified morphology (ICD-10 - N40.0) He is under the care of urologist, who has stopped his warfarin. It seems they're planning to do a TURP. 11/29/2023 Obesity (ICD-10 - E66.9) He has lost 8 pounds since his last visit. He was encouraged to continue losing weight at this rate until his weight is in the normal range. We have reviewed the elements of a diabetic weight loss diet. 12/17/2023 Obesity (ICD-10 - E66.9) He has lost 8 pounds since his last visit. He was encouraged to continue losing weight at this rate until his weight is in the normal range. We have reviewed the elements of a diabetic weight loss diet. 03/10/2024 Obesity (ICD-10 - E66.9) His body mass index is 32. He has recently lost weight. We discussed elements of weight reduction diabetic diet. We reviewed his weight loss strategy. 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 He did not request any additional medication. 11/12/2023 Lumbar disc herniation with myelopathy (ICD-10 - M51.06) His back pain is present but mild and he has adapted to it. He did not request any additional medication. 11/29/2023 Lumbar disc herniation with myelopathy (ICD-10 - M51.06) His back pain is present but mild and he has adapted to it. He did not request any additional medication. 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 He did not request any additional medication. 03/10/2024 Essential hypertension (ICD-10 - I10) His blood pressure is stable. No change in his regimen was made today. 05/26/2024 Hyperlipidemia, unspecified hyperlipidemia type (ICD-10 - [...] will continue on anticoagulation. Plan Of Treatment Pending Test Test Name Order Date URINE DIP STICK 12/17/2022 EKG 05/29/2013 PROFILE, FASTING (COMPREHENSIVE METABOLI C) 05/26/2024 PROFILE, FASTING (COMPREHENSIVE METABOLI C) 07/31/2022 PROFILE, FASTING (COMPREHENSIVE METABOLI C) 04/19/2020 PROFILE, FASTING (COMPREHENSIVE METABOLI C) 03/10/2024 PROFILE, FASTING (COMPREHENSIVE METABOLI C) 11/12/2023 PROFILE, FASTING (COMPREHENSIVE METABOLI C) 09/19/2018 PROFILE, FASTING (COMPREHENSIVE METABOLI C) 04/24/2022 PROFILE, FASTING (COMPREHENSIVE METABOLI C) 05/20/2018 PROFILE, FASTING (COMPREHENSIVE METABOLI C) 03/19/2023 PROFILE, FASTING (COMPREHENSIVE METABOLI C) 04/09/2021 PROFILE, FASTING (COMPREHENSIVE METABOLI C) 01/21/2018 PROFILE, FASTING (COMPREHENSIVE METABOLI C) 12/17/2022 PROFILE, FASTING (COMPREHENSIVE METABOLI C) 02/05/2021 PROFILE, FASTING (COMPREHENSIVE METABOLI C) 07/23/2023 PROFILE, FASTING (COMPREHENSIVE METABOLI C) 06/13/2021 PROFILE, FASTING (COMPREHENSIVE METABOLI C) 09/12/2021 PROFILE, FASTING (COMPREHENSIVE METABOLI C) 12/15/2019 PROFILE, FASTING (COMPREHENSIVE METABOLI C) 09/14/2017 PROFILE, FASTING (COMPREHENSIVE METABOLI C) 10/30/2020 PROFILE, FASTING (COMPREHENSIVE METABOLI C) 12/12/2021 PROFILE, FASTING (COMPREHENSIVE METABOLI C) 04/14/2019 PROFILE, FASTING (COMPREHENSIVE METABOLI C) 09/13/2020 PROFILE, FASTING (COMPREHENSIVE METABOLI C) 01/20/2019 PROFILE, RANDOM (COMPREHENSIVE METABOLIC ) 08/18/2019 HEMOGLOBIN A1C (GLYCOHEMOGLOBIN) 021 HEMOGLOBIN A1C (GLYCOHEMOGLOBIN) 019 HEMOGLOBIN A1C (GLYCOHEMOGLOBIN) 020 HEMOGLOBIN A1C (GLYCOHEMOGLOBIN) 019 HEMOGLOBIN A1C (GLYCOHEMOGLOBIN) 018 HEMOGLOBIN A1C (GLYCOHEMOGLOBIN) 023 HEMOGLOBIN A1C (GLYCOHEMOGLOBIN) 021 HEMOGLOBIN A1C (GLYCOHEMOGLOBIN) 018 HEMOGLOBIN A1C (GLYCOHEMOGLOBIN) 023 HEMOGLOBIN A1C (GLYCOHEMOGLOBIN) 021 HEMOGLOBIN A1C (GLYCOHEMOGLOBIN) 021 HEMOGLOBIN A1C (GLYCOHEMOGLOBIN) 022 HEMOGLOBIN A1C (GLYCOHEMOGLOBIN) 018 HEMOGLOBIN A1C (GLYCOHEMOGLOBIN) 019 HEMOGLOBIN A1C (GLYCOHEMOGLOBIN) 021 HEMOGLOBIN A1C (GLYCOHEMOGLOBIN) 019 LIPID PANEL 08/18/2019 LIPID PANEL 10/30/2020 LIPID PANEL 04/14/2019 LIPID PANEL 09/13/2020 LIPID PANEL 01/20/2019 LIPID PANEL 03/10/2024 LIPID PANEL 09/19/2018 LIPID PANEL 05/20/2018 LIPID PANEL 03/19/2023 LIPID PANEL 04/09/2021 LIPID PANEL 01/21/2018 LIPID PANEL 12/15/2019 LIPID PANEL 12/17/2022 LIPID PANEL 02/05/2021 LIPID PANEL 12/12/2021 LIPID PANEL 09/14/2017 PSA, TOTAL 08/18/2019 PSA, TOTAL 04/24/2022 PSA, TOTAL 03/10/2024 PSA, TOTAL 03/19/2023 PSA, TOTAL 04/09/2021 PSA, TOTAL 01/21/2018 PSA, TOTAL 12/17/2022 PSA, TOTAL+FREE 02/05/2021 MICROALBUMIN, RANDOM 03/19/2023 MICROALBUMIN, RANDOM 04/09/2021 MICROALBUMIN, RANDOM 04/14/2019 MICROALBUMIN, RANDOM 04/19/2020 MICROALBUMIN, RANDOM 05/20/2018 CBC w DIFF 05/20/2018 CBC w DIFF 12/12/2021 CBC w DIFF 01/21/2018 CBC w DIFF 12/17/2022 CBC w DIFF 02/05/2021 CBC w DIFF 09/14/2017 CBC w DIFF 10/30/2020 CBC w DIFF 07/31/2022 CBC w DIFF 03/19/2023 CBC w DIFF 04/09/2021 CBC w DIFF 08/18/2019 CBC w DIFF 04/14/2019 CBC w DIFF 09/13/2020 CBC w DIFF 01/20/2019 CBC w DIFF 04/24/2022 CBC w DIFF 04/19/2020 CBC w DIFF 09/19/2018 CBC w DIFF 06/13/2021 CBC w DIFF 09/12/2021 CBC w DIFF 12/15/2019 PROTHROMBIN TIME (PT, INR) 10/16/2022 PROTHROMBIN TIME (PT, INR) 10/19/2022 URINALYSIS (UA) 11/12/2021 URINE CULTURE 11/12/2021 US RENAL BILATERAL 06/13/2021 CBC WITH AUTO DIFF 05/26/2024 CBC WITH AUTO DIFF 11/12/2023 CBC WITH AUTO DIFF 07/23/2023 CBC WITH AUTO DIFF 03/10/2024 Lipid Panel 06/13/2021 Lipid Panel 09/12/2021 Lipid Panel 07/31/2022 Lipid Panel 11/12/2023 Lipid Panel 04/24/2022 Lipid Panel 07/23/2023 Microalbumin, Random 07/31/2022 Microalbumin, Random 11/12/2023 US bladder 06/13/2021 Hemoglobin A1c 04/24/2022 Hemoglobin A1c 07/23/2023 Hemoglobin A1c 07/31/2022 Hemoglobin A1c 03/10/2024 Hemoglobin A1c 11/12/2023 Next Appt Details Provider Name:Richie Hatfield, 10/27/2024 09:00:00 AM, [address] [place] [address] DOLORES YOON, JACOBO RED, [address], Provider Name:Richie Hatfield, 03/12/2025 02:00:00 PM, [address] [place] [address] DOLORES YOON, JACOBO RED, [address], Insurance Providers Payer Name Payer Address Payer Phone Subscriber Number Group Number Insured Name Patient Relationship to Insured Coverage Start Date Coverage End Date [address] [place] [address] [id number] Esdras Gonzales Self - patient is the insured MEDICARE NGS [address] [place] [phone] [id number] Esdras Gonzales Self - patient is the insured Medical (General) History Medical History History ICD Code hypertension recurrent sinus problems pneumonia 1953 osteoarthritis bph hyperlipidemia hyperglycemia. 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
--- OUTSIDE RECORDS SUMMARY | 2024-08-02 14:06 | XMS_ITS ---
Author Name [facility] [place] Organization [facility] Address [address] [place] [address] Care Team Providers Care Field Marketing Lead Name Role Phone DUARTEANDRADE Primary Care Provider Unavailabl e Insurance Providers: All historical and current Section Date Range: From patient's date of to the date document was created. This section includes the names of all active insurance providers for the patient. Insurance Provider Type of Coverage Plan Name Start of Policy Coverage End of Policy Coverage Group Number Member ID Insurance Provider's Telephone Number Policy De Jesus's Name Patient's Relationship to Policy De Jesus [facility] JOCELYNN SMITH AP Nov 21, 2013 [id number] JAXSON CAIN CHARD PATIENT MEDICARE (WNR) MEDICARE (M) PART B Nov 21, 2017 PART B [id number] JAXSON CAIN CHARD PATIENT MEDICARE (WNR) MEDICARE (M) PART A Apr 23, 2001 PART A [id number] JAXSON CAIN CHARD PATIENT MEDICARE (WNR) MEDICARE (M) PART A Apr 23, 2001 PART A [id number] JAXSON CAIN PATIENT Selected Encounter This section includes the information on record at [place] for the Encounter. Date/Time Encounter Type Encounter Description Reason Pro vider Source Oct 30, 2023 10:54 AM Outpatient Encounter TELEPHONE/MEDICINE IHE Encounter Template Text not used by [place] Advance Directives: All historical and current Section Date Range: From patient's date of to the date document was created. This section includes ALL of a patient's completed or amended [place] Advance and Rescinded Directives. The entries below indicate that a directive exists for the patient, but an actual copy is not included with this document. The data comes from all [place] facilities. Date Advance Directives Provider Source Jul 25, 2015 ADVANCE DIRECTIVE ALICJA SANDHU Encounter Notes: All associated encounter notes This section contains the clinical notes associated to the Encounter. Date/Time Encounter Note(s) Provider Source Oct 30, 2023 10:54 AM OCCUPATIONAL MEDIC INE TELEPHONE ENCOUNTER NOTE: LOCAL TITLE: TELEPHONE NOTE/TOXIC EXPOSURE FOLLOW-UP STANDARD TITLE: OCCUPATIONAL MEDICINE TELEPHONE ENCOUNTER NOTE DATE OF NOTE: OCT 30, 2023@10:54 ENTRY DATE: OCT 30, 2023@10:54:52 AUTHOR: MARIO ANDREW EXP COSIGNER: URGENCY: STATUS: COMPLETED UNABLE TO CONTACT, WILL CONTINUE OUTREACH /es/ MARIO ANDREW NP [facility] Nurse Practitioner Signed: 10/30/2023 10:55 MARIO ANDREW [place] [facility]
--- OUTSIDE RECORDS SUMMARY | 2024-08-02 14:06 | XMS_ITS ---
Author Name [facility] ([place]) Address [address] [place] [address] Care Team Providers Care Leaflet Distributor Name Role Phone ANDRADE RAMACHANDRAN Primary Care Provider Unavailabl e Insurance Providers: [...] Patient's Relationship to Policy De Jesus [facility] [birth year] [facility] 2012 [id number] JAXSON CAIN CHARD PATIENT MEDICARE (WN) MEDICARE (M) PART B Nov 21, 2017 PART B [id number] JAXSON CAIN CHARD PATIENT MEDICARE (WNR) MEDICARE (M) PART A Apr 23, 2001 PART A [id number] JAXSON CAIN CHARD PATIENT MEDICARE (WNR) MEDICARE (M) PART A Apr 23, 2001 PART A [id number] JAXSON CAIN PATIENT Selected Encounter This section includes the information on record at [place] for the Encounter. Date/Time Encounter Type Encounter Description Reason Provider Source Oct 22, 2023 02:00 PM HEARING SERVICE AUDIOLOGY ICD-10-CM Z46.1 Encounter for fitting and adjustment of hearing aid JOANNA BUSTAMANTE [place] Encounter Template Text not used by [place] Assessments - Encounter Diagnoses This section includes the primary and secondary diagnoses documented for the Encounter. Date/Time Primary/Secondary Diagnosis Diagnosis Name Provider Source Oct 22, 2023 02:28 PM PRIMARY Encounter for fitting and adjustment of hearing aid BECK BUSTAMANTE [facility] Oct 22, 2023 02:28 PM SECONDARY Sensorineural hearing loss, bilateral BECK BUSTAMANTE [facility] Advance Directives: All historical and current Section Date Range: From patient's date of to the date document was created. This section includes ALL of a patient's completed or amended [place] Advance and Rescinded Directives. The entries below indicate that a directive exists for the patient, but an actual copy is not included with this document. The data comes from all [place] facilities. Date Advance Directives Provider Source Jul 25, 2015 ADVANCE DIRECTIVE ALICJA SANDHU Encounter Notes: All associated encounter notes This section contains the clinical notes associated to the Encounter. Date/Time Encounter Note(s) Provider Source Oct 22, 2023 07:40 AM AUDIOLOGY E & M NOTE: LOCAL TITLE: AUDIOLOGY CLINIC STANDARD TITLE: AUDIOLOGY E & M NOTE DATE OF NOTE: OCT 22, 2023@07:40 ENTRY DATE: OCT 22, 2023@07:40:29 AUTHOR: JOANNA BUSTAMANTE COSIGNER: URGENCY: STATUS: COMPLETED AUDIOLOGY CLINIC Has ADDENDA Dx CODE: Z46.1- Encounter for Fitting/Programming Hearing Aid(s); H90.3- Sensorineural Hearing Loss, Bilateral APPOINTMENT TYPE: Hearing Aid Fitting SUBJECTIVE (S): The patient was seen for hearing aid fitting and issuance. He had previously been evaluated and found to exhibit significant hearing loss for which amplification was recommended. He is a previous user of Unidesk BTEs. How does the patient best learn? Verbal instruction, demonstration Does the patient have any cultural and sikh beliefs, emotional barriers, physical or cognitive limitations, and communication barriers which may impact his ability to learn? No Desire and motivation to learn? Good OBJECTIVE (O): Physical fit of hearing aids was good. Patient verified comfort. Verification of an appropriate acoustic response was obtained using Real Ear measurements (speech mapping) and NAL-NL2 targets. The patient reported good subjective benefit as well. Feedback metrology manager was run. Hearing aids were found to be meeting targets adequately and MPO was not exceeding estimated UCL. Settings stored in MAITE. ASSESSMENT (A): The following devices were issued: Make: Khushboo Model: Daphne AI ITC Rechargeable Right Serial Number: [id number] Left Serial Number: [id number] Battery size: RECHARGEABLE Warranty ends: 10/30/26 Trial Period ends: 03/29/24 Wax guards: Hear Clear Program(s): Automatic Button(s): Short press= disabled Long press= disabled Fitting Formula: NAL-NL2 Remote Programming: HAs are capable Counseling was completed throughout todays appointment using a standardized curriculum that includes but is not limited to; realistic expectations with amplification in adverse listening environments, acclimatization to own voice and environmental sounds (following real-ear measurements), the importance of consistent use of amplification, proper insertion/removal, care and maintenance (including wax guards/domes if applicable), signal and alerts of devices, and charging/batteries. The was provided the opportunity to practice in office and reports confidence/understanding in all items reviewed. Time Spent= 20 minutes The patient was informed of and signed/agreed to [place] policy on hearing aid issuance: Yes Users are responsible for the maintenance and security of their devices. Determination of need to replace a hearing aid is made by the [place] bridge expert. Hearing aids will not be replaced in cases of neglect, abuse, or excessive loss. Items issued are for personal use only. Prognosis for successful hearing aid use is good. PLAN (P): 1. Follow-up for programming/adjustments as needed. 2. The International Outcome Inventory-Hearing Aids (IOI-SANCHEZ) will be mailed to the in four weeks. He was asked to complete and mail back to clinic after completion. Patient Education Education provided on the following topics: Hearing aid use, care, maintenance Education provided to: P Response to Education: RAJINDER, RD, PI Wiley Patient P Family F Significant Other SO Verbalizes Understanding VU Returns Demonstration RD Performs Independently PI Lacks Comprehension LC Refused Education RE Not Applicable NA /annika/ JOANNA BUSTAMANTE STAFF DEBEAKER Signed: 10/22/2023 14:28 12/10/2023 ADDENDUM STATUS: COMPLETED [place] returned IOI-SANCHEZ Outcome Measure to the clinic via mail with an overall score of 30 Based on this score: i. No follow-up call is indicated _XX_ ii. Follow-up call is indicated and fitting clinician will be notified __ /es/ LETICIA CLEMONS Audiology Health Quilting Machine Operator Signed: 12/10/2023 15:31 JOANNA BUSTAMANTE [facility] [place] [facility]
--- OUTSIDE RECORDS SUMMARY | 2024-08-02 14:06 | XMS_ITS | Encounter Summary ---
Author Name [facility] [place] Organization [facility] [place] Address [address] [place] [address] Care Team Providers Care Supervisor Cold Rolling Name Role Phone DUARTEANDRADE Primary Care Provider [...] Name Patient's Relationship to Policy De Jesus [facility] JOCELYNN SMITH AP Nov 21, 2013 [id number] [phone] JAXSON CAIN CHARJoni PATIENT MEDICARE (WN) MEDICARE (M) PART B Nov 21, 2017 PART B [id number] JAXSON CAIN CHARD PATIENT MEDICARE (WNR) MEDICARE (M) PART A Apr 23, 2001 PART A [id number] JAXSON CAIN PATIENT MEDICARE (WNR) MEDICARE (M) PART A Apr 23, 2001 PART A [id number] JAXSON CAIN PATIENT Selected Encounter This section includes the information on record at [place] for the Encounter. Date/Time Encounter Type Encounter Description Reason Provider Source Sep 24, 2023 01:30 PM HEARING AID EXAM BOTH EARS AUDIOLOGY ICD-10-CM H90.3 Sensorineural hearing loss, bilateral JOANNA HARE MARIELAJony Encounter Template Text not used by [place] Assessments - Encounter Diagnoses This section includes the primary and secondary diagnoses documented for the Encounter. Date/Time Primary/Secondary Diagnosis Diagnosis Name Provider Source Sep 24, 2023 01:44 PM PRIMARY Sensorineural hearing loss, bilateral JOANNA HARE [facility] Plan of Treatment: Future Appointments (+ 6 months) and Future Tests (+/- 45 days) The Plan of Treatment section includes future care activities for the patient from all [place] [facility]. This section includes future appointments and future orders which are active, pending or scheduled. Future Appointments This section includes appointments that were scheduled to occur 6 months from the date of the Encounter, up to a maximum of 20 appointments. The data comes from all [place] treatment facilities. Appointment Date/Time Appointment Type Appointme nt Facility Name Oct 22, 2023 02:00 PM AMBULATORY - REHAB MEDICIN E [facility] Advance Directives: All historical and current Section Date Range: From patient's date of to the date document was created. This section includes ALL of a patient's completed or amended [place] Advance and Rescinded Directives. The entries below indicate that a directive exists for the patient, but an actual copy is not included with this document. The data comes from all [place] facilities. Date Advance Directives Provider Source Jul 25, 2015 ADVANCE DIRECTIVE ALICJA SANDHU Encounter Notes: All associated encounter notes This section contains the clinical notes associated to the Encounter. Date/Time Encounter Note(s) Provider Source Sep 24, 2023 07:29 AM AUDIOLOGY E & M NOTE: LOCAL TITLE: AUDIOLOGY CLINIC STANDARD TITLE: AUDIOLOGY E & M NOTE DATE OF NOTE: SEP 24, 2023@07:29 ENTRY DATE: SEP 24, 2023@07:29:42 AUTHOR: JOANNA HARE EXP COSIGNER: URGENCY: STATUS: COMPLETED AUDIOLOGY CLINIC Has ADDENDA Dx CODE: H90.3-Sensorineural Hearing Loss, Bilateral APPOINTMENT TYPE: Hearing Aid Selection BACKGROUND/HISTORY: was seen 09/24/23 for a hearing aid selection appointment, unaccompanied. At his last hearing evaluation on 07/09/23 cerumen removal was recommended prior to hearing aid selection. He has since had the cerumen removed and is [facility] HEARING AID SELECTION: Different hearing aid options were discussed. He is interested in custom rechargeable technology. He does not have a pacemaker. Khushboo Daphne AI ITCs were selected and ordered in RO. Impressions were taken without incident and with 's verbal consent. EDUCATION/COUNSELING: The patient was counseled re: hearing aid options. He demonstrated satisfactory understanding of the education and plan, and was given the opportunity to ask questions throughout today's visit. PLAN: 1. RTC on 10/22/23 at 2PM for 60 minute hearing aid fitting appointment. * Patient Education Education provided on the following topics: Hearing aids Education provided to: P Response to Education: VU Wiley Patient P Family F Significant Other SO Verbalizes Understanding VU Returns Demonstration RD Performs Independently PI Lacks Comprehension LC Refused Education RE Not Applicable NA * /aninka/ BUBBA LEY STAFF DENTAL CERAMIST ASSISTANT Signed: 09/24/2023 13:44 Receipt Acknowledged By: 09/24/2023 14:40 /annika/ NELIA JOHNSON SUPERVISORY RIVET HEATER 10/14/2023 ADDENDUM STATUS: COMPLETED Hearing aids received and certified, upcoming appointment scheduled on 10/22/2023. /annika/ LETICIA CLEMONS Audiology Health Apprentice Carpenter Signed: 10/14/2023 08:37 JOANNA HARERL [facility]
--- OUTSIDE RECORDS SUMMARY | 2024-08-02 14:06 | XMS_ITS | Encounter Summary ---
Author Name [facility] [place] Organization [facility] Address [address] [place] [address] Care Team Providers Care Director Of Technology Name Role Phone CATA RAMACHANDRANA Primary Care Provider Unavailabl e Insurance Providers: [...] Patient's Relationship to Policy De Jesus [facility] ANATOLIY DEBORA SARAH [facility] [birth year], 2012 [id number] JAXSON CAIN PATIENT MEDICARE (WNR) MEDICARE (M) PART B Nov 21, 2017 PART B [id number] JAXSON CAIN PATIENT MEDICARE (WNR) MEDICARE (M) PART A Apr 23, 2001 PART A [id number] JAXSON CAIN PATIENT MEDICARE (WNR) MEDICARE (M) PART A Apr 23, 2001 PART A [id number] JAXSON CAIN PATIENT Selected Encounter This section includes the information on record at [place] for the Encounter. Date/Time Encounter Type Encounter Description Reason Pro vider Source IHE Encounter Template Text not used by [place] Advance Directives: All historical and current Section Date Range: From patient's date of to the date document was created. This section includes ALL of a patient's completed or amended [place] Advance and Rescinded Directives. The entries below indicate that a directive exists for the patient, but an actual copy is not included with this document. The data comes from all [place] facilities. Date Advance Directives Provider Source Jul 25, 2015 ADVANCE DIRECTIVE ALICJA SANDHU
--- OUTSIDE RECORDS SUMMARY | 2024-08-02 14:06 | XMS_ITS | Continuity of Care Document ---
Author Name [facility] Organization [facility] Care Team Providers Care Motorcycle Subassembler Name Role Phone [facility] Unavailable Unavailable Problems Combined list of problems from Department of [facility] and Veterans [facility] facilities. It does not include entries that were removed or entered in error. Problem Status Onset Date Problem Type Date of Resolution Comments Source Benign prostatic hyperplasia Active Condition ARY Diabetes mellitus type 2 Active Condition ARY Essential hypertension Active Condition [facility] History of DVT Right LE Active Condition Nov 27, 2016 Entered By: ANDRADE RAMACHANDRAN Comment: 05/2016 [facility] [place] [facility] History of Pulmonary Emboli Active Condition Nov 27, 2016 Entered By: ANDRADE RAMACHANDRAN Comment: 05/2016 - Right Lung [facility] [place] [facility] Hyperlipidemia Active Condition [facility] Primary Care Physician Active Condition Nov 27, 2016 Entered By: ANDRADE RAMACHANDRAN Comment: [facility] Screening Colonoscopy Active Condition Nov 27, 2016 Entered By: ANDRADE RAMACHANDRAN Comment: Age 75 - no further exams per GI [facility] [place] [facility] Testicular Mass-Benign Active Condition Jun 18, 2014 Entered By: JOSE DE JESUS PISANO Comment: removal of left testicle 2011 ARY Diagnosis: ICD-10-CM Z46.1 Encounter for fitting and adjustment of hearing aid Active Diagnosis [facility] [place] [facility] Diagnosis: ICD-10-CM H90.3 Sensorineural hearing loss, bilateral Active Diagnosis [facility] [place] [facility] Medications Combined list of outpatient medications from Department of [facility] and Veterans Affairs facilities.Medications provided include 1) outpatient medications from the last 15 months, and 2) patient-reported medications. Medication Details Route Status Patient Instructions Prescription Expires Prescription Number Last Dispense Date Ordering Provider Order Date Order Qty Source ATORVASTATI N CA 20MG TAB TAKE ONE-HALF TABLET BY MOUTH DAILY ORAL ACTIVE BRI PISANO 2013 IELD LISINOPRIL 10MG TAB TAKE ONE TABLET BY MOUTH DAILY ORAL ACTIVE BRI PISANO 2013 IELD LUTEIN CAP/TAB TAKE 20MG po DAILY ACTIVE PISANOBRI 2013 IELD METFORMIN HCL 500MG TAB TAKE ONE TABLET BY MOUTH DAILY ORAL ACTIVE BRI PISANO 2013 IELD TAMSULOSIN HCL 0.4MG CAP TAKE 1 CAPSULE BY MOUTH TWICE DAILY ORAL ACTIVE PUNEET RAMACHANDRAN SA 2018 [facility] [employer] [employer] [facility] Allergies, Adverse Reactions, Alerts Combined list of allergies from Department of Defense and Veterans Affairs facilities. It does not include entries that were removed or entered in error. Substance Category Reaction Severity Reaction type Status Date Reported Comments Source SHELLFISH Propensity to adverse reactions to food (finding) Urticaria active 4 [place] [facility] Immunizations Combined list of available immunizations from the Department of Defense and Veterans Affairs facilities. Immunization Series Date Given Administered By Site Reaction Lot Number CVX Code Drug Cps Team Lead Status Comments Source INFLUENZA, SEASONAL, INJECTABLE 2017 141 complet ed Employer [facility] [employer] [facility] FLU,3 YRS (HISTORICAL) 2015 88 complet ed [facility] [employer] [facility] [facility] PNEUMOCOCCAL CONJUGATE PCV 13 2014 133 complet ed [facility] IELD FLU,3 YRS (HISTORICAL) 2014 88 complet ed form his work [place] [facility] [employer] [place] [facility] FLU,3 YRS (HISTORICAL) 2013 88 complet ed Outside Provider [facility] [employer] [facility] TDAP 2011 115 complet ed [facility] [employer] [facility] Encounters Combined list of: 1) Encounters from Department of Veterans Affairs facilities going back up to thelast 18 months. 2) Encounters from the Department of Defense facilities going back up to 280 months. Location Location Details Encounter Type Encounter Number Reason For Visit Attending Provider ADM Date DC Date Status Disposition Source [facility] [employer] [facility] [facility] HEARING A[facility] FITTING/CH ECKING [id number] Diagnos is: ICD-10- CM H90.3 Sensori neural hearing loss, bilater al
Lashae ZUNIGA E 07/09 [place] [facility] [place] [facility] [place] [facility] HEARING AID EXAM BOTH EARS [id number] Diagnos is: ICD-10- CM H90.3 Sensori neural hearing loss, bilater al
FAB HARE XAVIER FRANKEL 09/24 [place] [facility] [place] [facility] [place] [facility] HEARING SERVICE [id number] Diagnos is: ICD-10- CM Z46.1 Encount er for fitting and adjustm ent of hearing aid<br/ > RAFAL BUSTAMANTE JOSTIN 10/21 [place] [facility] [place] [facility] [facility] Outpatient Encounter [id number] 10/29 [place] [facility] [facility] Social History Combined list of available smoking, tobacco, and other social history from Department of Defense and Veterans Affairs facilities. Social History Type Response Date Comment [facility] Tobacco smoking status [facility]-TOBACCO NEVER USED 01/08/20 18 ARY History of tobacco use LIFETIME NON-TOBACCO USER 8 ARY History of tobacco use LIFETIME NON-TOBACCO USER 7 ARY History of tobacco use LIFETIME NON-TOBACCO USER 4 ARY Advance Directives List of completed, amended, or rescinded Advance Directives on record at Department of Veterans Affairs facilities. An actual copy of the Directive is not included. Date Advance Directive Provider Source 07/25/2015 ADVANCE DIRECTIVE ALICJA SANDHU
== END 2024-07-31 10:44 | disposition home or self-care (01) ==
PROVIDERS: PCP Internal Medicine Medical Oncology; Visit Provider Orthopaedic Surgery
DX: M70.62 Trochanteric bursitis, left hip (principal)
CPT/HCPCS: 20610; 99203

== ENCOUNTER 2024-10-13 09:09 | Outpatient (REF) | payer MEDICARE, SELFPAY ==
[2024-10-13 09:28] LABS: MANUAL DIFF FLAG NO
--- OUTSIDE RECORDS SUMMARY | 2024-10-13 09:36 | XMS_ITS ---
Author Organization Richie Hatfield III, MD Address [address] [place] [address] [place] [address] Care Team Providers Care Tier And Detonator Name Role Phone Richie Hatfield Primary Care Provider REASON FOR VISIT Message Social History Sex Assigned At : Social History Observation Description Sex Assigned At Male Encounters Encounter Location Date Provider Diagnosis Richie Hatfield III, MD [address] [place] [address] [place] [address] 03/14/2024 Richie Hatfield Plan Of Treatment Next Appt Details Provider Name:Richie Hatfield, 10/27/2024 09:00:00 AM, [address] [place] [address] [place], [address], Provider Name:Richie Hatfield, 03/12/2025 02:00:00 PM, [address] [place] [address] [place], [phone], Progress Notes * Esdras GONZALES GDOB: [birth year] (88 yo M)Acc No.[id number]:03/14/2024 Patient:?Esdras Gonzales :1935???Age:88 Y???Sex:Male Address:[place] [address] * true * Date:? Generated for Baljinder medina/Kan/eTalishasmitting on:?10/13/2024 09:36 AM EST
--- OUTSIDE RECORDS SUMMARY | 2024-10-13 09:38 | XMS_ITS | Clinical Summary ---
Author Organization [facility] Address [address] [place] [address] Phone Care Team Providers Care Volunteer Services Assistant Name Role Phone Richie Hatfield MD Primary Care Provider [phone] Allergies Active Allergy Reactions Criticality Noted Date Comments Shellfish-Derived Products Medications atorvastatin (LIPITOR) 10 MG tablet Take 1 tablet by mouth 1 (one) time each day 05/28/2021 Active tamsulosin (FLOMAX) 0.4 MG 24 hr capsule Take 1 capsule by mouth 2 (two) times a day 05/28/2021 Active metFORMIN (GLUCOPHAGE) 500 MG tablet Take 500 mg by mouth 1 (one) time each day 02/17/2021 Active finasteride (PROSCAR) 5 MG tablet Take 1 tablet by mouth 1 (one) time each day 02/16/2022 Active amLODIPine (NORVASC) 10 MG tablet Take 10 mg by mouth 1 (one) time each day 10/14/2022 Active aspirin (ST SARAH) 81 MG EC tablet Take 81 mg by mouth 1 (one) time each day Active Active Problems Problem Noted Date Diagnosed Date Sensorineural hearing loss, bilateral 11/23/2023 Benign prostatic hyperplasia without outflow obs truction 02/18/2022 Blood chemistry outside reference range 02/19/20 Cataract 02/18/2022 Hyperlipidemia 02/18/2022 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 02/18/2022 Laboratory test result abnormal 02/18/2022 Obesity 02/18/2022 Osteoarthritis 02/18/2022 Pulmonary embolism 02/18/2022 Pure hypercholesterolemia 02/18/2022 Type 2 diabetes mellitus without complication Urinary incontinence 02/18/2022 Weight loss 02/18/2022 Chronic kidney disease 07/25/2021 Stage 3a chronic kidney disease 07/25/2021 Hypertension 07/25/2021 Encounters Date Type Department Care Team Description 08/24/2024 1:15 PM EST Office Visit [facility] [address] [place] [address] Hollis Allison MD Stage 3a chronic kidney disease (HCC) (Primary Dx); Hypertension; Type 2 diabetes mellitus without complication (HCC) from Last 3 Months Immunizations Name Administration Dates Next Due Influenza, Quadrivalent, Pre servative Free 05/30/2021 Influenza, Unspecified 05/23/2016,05/23/2015, Moderna SARS-COV-2 12/02/2021,,09/27/2020,08/29 Pneumococcal Conjugate 13-Valent 07/31/2015 Pneumococcal Polysaccharide 05/23/2015 Td 01/26/2022 Tdap 02/21/2012 Family History Medical History Relation Comments Diabetes Father Heart disease Father Cancer Mother Diabetes Sister Hypertension Sister Relation Status Comments Father Mother Sister Social History Tobacco Use Types Packs/Day Years Used Date Smoking Tobacco: Never Smokeless Tobacco: Never Tobacco Cessation:Counseling Given: Not Answered Alcohol Use Standard Drinks/Week Comments Yes 0 (1 standard drink = 0.6 oz pur e alcohol) Sex and Gender Information Value Date Recorded Sex Assigned at Not on file Legal Sex Male 2:38 PM EDT Gender Identity Not on file Sexual Orientation Not on file Last Filed Vital Signs Vital Sign Reading Time Taken Comments Blood Pressure 119/62 08/24/2024 1:24 PM EST Pulse 85 08/24/2024 1:24 PM EST Temperature - - Respiratory Rate - - Oxygen Saturation 98% 08/24/2024 1:24 PM EST Inhaled Oxygen Concentration - - Weight 99.4 kg (219 lb 3.2 oz) 08/24/2024 1:24 P M EST Height - - Body Mass Index - - Plan of Treatment Upcoming Encounters Date Type Department Care Team (Late st Contact Info) Description 08/27/2025 2:15 PM EST Office Visit [facility] [address] [place] [address] Hollis Allison MD [address] [address] Health Maintenance Due Date Last Done Comments Diabetes: Ophthalmology Exam 02/18/2022 Diabetes: Pedal Pulse Checked 02/18/2022 Diabetes: Sensory Foot Exam 02/18/2022 Diabetes: Visual Foot Exam 02/18/2022 Diabetes: Hemoglobin A1C 08/26/2024 024, 07/17/2023, 06/06/2021 Pneumococcal Vaccine: 65+ Years Completed 07/31/2015, 05/23/2015 Influenza Vaccine Completed 04/26/2024, , 05/30/2021, Additional history exists Hepatitis B Vaccine Aged Out No longe r eligible based on patient's age to complete this topic Procedures Procedure Name Priority Date/Time Associated Diagnosis Comments EXT RESULT ENTRY Routine 05/26/2024 from Last 3 Months or Most Recently Relevant to Health Maintenance Results * (ABNORMAL) EXT RESULT ENTRY (05/26/2024) WBC 7.3 3.3 - 10.0 10*3/ML Red Blood Cell Count 4.51 Hematocrit 43.3 41.0 - 53.0 Platelets 269 150 - 399 10*3/UL Sodium 140 137 - 147 Potassium 4.6 3.4 - 5.5 Chloride 1,085.0(A ) 99.0 - 108.0 Carbon Dioxide 23 mmol/L Anion Gap 14 <=30 MMOL/L BUN 23(A) 4 - 21 mg/dL Creatinine 1.06 0.60 - 1.30 mg/dL Albumin 3.9 3.5 - 5.0 g/dL Calcium 9.3 8.7 - 10.7 mg/dL Hemoglobin A1C 5.9 4.0 - 6.0 ... . Triglycerides 51 05/26/2024 Historical Provider LAB BLOOD ORDERABLES Phoebe l Result from Last 3 Months or Most Recently Relevant to Health Maintenance Insurance MEDICARE [facility] MEDICARE [facility] Care Teams Volunteer Services Assistant Relationship Specialty Start Date End Date Richie Hatfield MD [address] [place] [phone] [phone] [place] PCP - General Medical Oncology 06/16/21
--- OUTSIDE RECORDS SUMMARY | 2024-10-13 09:38 | XMS_ITS ---
Author Organization Richie Hatfield III, MD Address [address] [place] [address] Care Team Providers Care Extension Worker Name Role Phone Richie Hatfield Primary Care Provider Reason For Referral Reason Evaluate and Treat Left hip pain Diagnosis 1 Left hip pain (M25.5 52) Referral Organization Richie Hatfield III, MD Referring Provider First Name Richie Referring Provider Last Name Alysia Referring Provider Speciality Internal M edicine Referred Provider [facility] er, Orthopedic Surgeons Referred Provider Specialty [facility] General Notes D, Deyanira 06/26/2024 12:31:06 PM > Referral faxed with last progress note. Referral Priority Routine Referral Appointment Date 07/31/2024 REASON FOR VISIT Ortho Referral Social History Sex Assigned At : Social History Observation Description Sex Assigned At Male Encounters Encounter Location Date Provider Diagnosis Richie Hatfield III, MD [address] [place] [address] [place] [address] 06/26/2024 Richie Hatfield Plan Of Treatment Referrals Referral Date Details 06/26/2024 06/26/2024, Evaluate and Treat Left hip pain, Orthopedic Surgeons [facility] Next Appt Details Provider Name:Richie Hatfield, 10/27/2024 09:00:00 AM, [address] [place] [address] [place], [address], Provider Name:Richie Munozrne, 03/12/2025 02:00:00 PM, [address] [place] [address] [address], [place], [address], Progress Notes * Esdras GONZALES GDOB: [birth year] (89 yo M)Acc No.[id number]:06/26/2024 Patient:?Esdras GONZALES :1935???Age:89 Y???Sex:Male Address:[address] [place] [address] [place] [address] Subjective: * Chief Complaints: * ???Ortho Referral * Medical History:? * Surgical History:? * Hospitalization/Major Diagno stic Procedure:? * Medications:? Objective: * Vitals:? * Physical Examination:? Assessment: Plan: * Treatment: * Procedure Codes:? * true * Date:? Generated for Baljinder medina/Kan/eTransmitting on:?10/13/2024 09:38 AM EST Consultation Request Notes Referral Date Referring Provider Referred Provider Not es 06/26/2024 Richie Hatfield [facility], Orthopedic Surgeons Evaluate and Treat Left hip pain
--- OUTSIDE RECORDS SUMMARY | 2024-10-13 09:38 | XMS_ITS | Continuity of Care Document ---
Author Name [facility] Organization [facility] Care Team Providers Care Snack Bar Attendant Name Role Phone [facility] Unavailable Unavailable Problems Combined list of problems from Department of [facility] and [facility] facilities. It does not include entries that were removed or entered in error. Problem Status Onset Date Problem Type Date of Resolution Comments Source Benign prostatic hyperplasia Active Condition [place] Diabetes mellitus type 2 Active Condition [place] Essential hypertension Active Condition [place] History of DVT Right LE Active Condition Nov 27, 2016 Entered By: ANDRADE RAMACHANDRAN Comment: 05/2016 [facility] [place] [facility] History of Pulmonary Emboli Active Condition Nov 27, 2016 Entered By: ANDRADE RAMACHANDRAN Comment: 05/2016 - [facility] [place] [facility] Hyperlipidemia Active Condition [facility] Primary Care Physician Active Condition Nov 27, 2016 Entered By: ANDRADE RAMACHANDRAN Comment: Dr Alysia Red [facility] Scre[facility] Colonoscopy Active Condition Nov 27, 2016 Entered By: ANDRADE RAMACHANDRAN Comment: Age 75 - no further exams per GI [facility] [place] [facility] Testicular Mass-Benign Active Condition Jun 18, 2014 Entered By: JOSE DE JESUS PISANO Comment: removal of left testicle 2011 [place] Diagnosis: ICD-10-CM Z46.1 Encounter for fitting and adjustment of hearing aid Active Diagnosis [facility] [place] [facility] Diagnosis: ICD-10-CM H90.3 Sensorineural hearing loss, bilateral Active Diagnosis [facility] [place] [facility] Medications Combined list of outpatient medications from Department of [facility] and [facility] facilities.Medications provided include 1) [...] CAP/TAB TAKE 20MG po DAILY ACTIVE PISANOBRI Omar 2013 IELD METFORMIN HCL 500MG TAB TAKE ONE TABLET BY MOUTH DAILY ORAL ACTIVE PISANOBRI CHANDLER 2013 IELD TAMSULOSIN HCL 0.4MG CAP TAKE 1 CAPSULE BY MOUTH TWICE DAILY ORAL ACTIVE PUNEET RAMACHANDRAN SA 2018 [facility] [place] [facility] Allergies, Adverse Reactions, Alerts Combined list of allergies from Department of Defense and Veterans Affairs facilities. It does not include entries that were removed or entered in error. Substance Category Reaction Severity Reaction type Status Date Reported Comments Source SHELLFISH Propensity to adverse reactions to food (finding) Urticaria active 4 [facility] [place] [facility] Immunizations Combined list of available immunizations from the Department of Defense and Veterans Affairs facilities. Immunization Series Date Given Administered By Site Reaction Lot Number CVX Code Drug Mason Foreman/Superintendant Status Comments Source INFLUENZA, SEASONAL, INJECTABLE 2017 141 complet ed Employer [facility] [place] [facility] FLU,3 YRS (HISTORICAL) 2015 88 complet ed [facility] [place] [facility] PNEUMOCOCCAL CONJUGATE PCV 13 2014 133 complet ed [facility] IELD FLU,3 YRS (HISTORICAL) 2014 88 complet ed form his work [employer] [facility] [place] [facility] FLU,3 YRS (HISTORICAL) 2013 88 complet ed Outside Provider [facility] [place] [facility] TDAP 2011 115 complet ed [facility] [place] [facility] Encounters Combined list of: 1) Encounters from Department of Veterans Affairs facilities going backup to the last 18 months, not all VA inpatient encounters are included; 2) Encounters from the Department of Defense facilities going backup to 280 months. Location Location Details Encounter Type Encounter Number Reason For Visit Attending Provider ADM Date DC Date Status Disposition Source [facility] [place] [facility] HEARING AID FITTING/CH ECKING [id number] Diagnos is: ICD-10- CM H90.3 Sensori neural hearing loss, elaina al BOOHORACIOLashae HOUSE E 07/09 [facility] [place] [facility] [place] [facility] HEARING AID EXAM BOTH EARS [id number] Diagnos is: ICD-10- CM H90.3 Sensori neural hearing loss, FAB Wheeler 09/24 [facility] [place] [facility] [place] [facility] HEARING SERVICE [id number] Diagnos is: ICD-10- CM Z46.1 Encount er for fitting and adjustm ent of hearing aid RAFAL BUSTAMANTE JOSTIN 10/21 [facility] [place] [facility] [place] [facility] Outpatient Encounter [id number] 10/29 [facility] [place] [facility] Social History Combined list of available smoking, tobacco, and other social history from Department of Defense and Veterans Affairs facilities. Social History Type Response Date Comment [facility] e Tobacco smoking status [facility]-TOBACCO NEVER USED 01/08/20 18 [place] History of tobacco use LIFETIME NON-TOBACCO USER 8 [place] History of tobacco use LIFETIME NON-TOBACCO USER 7 [place] History of tobacco use LIFETIME NON-TOBACCO USER 4 [place] Advance Directives List of completed, amended, or rescinded Advance Directives on record at Department of Veterans Affairs facilities. An actual copy of the Directive is not included. Date Advance Directive Provider Source 07/25/2015 ADVANCE DIRECTIVE ALICJA SANDHU
--- OUTSIDE RECORDS SUMMARY | 2024-10-13 09:39 | XMS_ITS ---
Author Organization Richie Hatfield III, MD Address [address] [place] [address] [address] [place] [address] Care Team Providers Care Buckle And Button Maker Name Role Phone Richie Hatfield Primary Care Provider [phone] Allergies Allergen (clinical drug ingredient) Drug/Non Drug Allergy documented on EMR Reaction Allergy Type Onset Date Status Shellfish (FN) Shellfish-derived Products hives Drug Allergy Active Iodine Unknown Drug Allergy Active Results Component Value Reference Range Notes Lipid Panel Reviewed date:06/26/2024 12:36:47 PM Interpretation: Performing Lab:[facility], [address] [place] [id number] Notes/Report: Triglycerides 51 <150 mg/dL Desirable Triglyceride: [...] A1c Reviewed date:06/26/2024 12:36:47 PM Interpretation: Performing Lab:[facility], [address] [place] [id number] Notes/Report: Hemoglobin A1c % 5.9 <6.0 % [...] average glucose, using the formula of the H1C-Ejdgddo Average Glucose study (ADAG), Diabetes Care, Vol.31,#8, [...] 05/27/2024 Active Mupirocin 2 % 1 application Presales Engineer ally Twice a day 11/29/2023 Active amLODIPine [...] Provider Diagnosis Richie Hatfield III, MD [address] [place] [address] [place] [address] 05/26/2024 Richie Hatfield Benign prostatic hyperplasia, presence [...] day 05/27/2024 Mupirocin 2 % 1 application Presales Engineer ally Twice a day 11/29/2023 amLODIPine Besylate [...] check-up Provider Name:Richie Hatfield, 10/27/2024 09:00:00 AM, [address] [place] [address] [address], [place], [address], Provider Name:Richie Hatfield, 03/12/2025 02:00:00 PM, [address] [place] [address] [address], [facility] [place], [address], Progress Notes * GONZALES Esdras GDOB: [birth year] (89 yo M)Acc No.[id number]:05/26/2024 Progress Notes Patient:?Esdras GONZALES Provider:?Richie Hatfield MD :1935???Age:89 Y???Sex:Male Lan e:05/26/2024 Address:[address] [place] [address], [id number] Subjective: * Chief Complaints: * ???HypertensionChronic low [...] * Surgical History:?Right L3-L 4 extraforaminal microdiscectomy [id number] surgery 09/2016No history * Hospitalization/Major Diagno stic [...] single without children and 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 * Medications:?TakingFinasteri de 5 MG Tablet 1 [...] Hatfield MD Date:?11/2023 Generated for Printi ng/Kan/eTransmitting on:?10/13/2024 09:38 AM EST History and Physical Notes * HPI (History of Present Illness) Category Sub-Category Detail Notes COVID-19 Screening Questions Have you had any new onset fever, chills, cough, congestion, sore throat, shortness of breath, muscle aches?: No Have you been exposed to the virus withi n the last 10 days?: No Have you travelled internationally in [facility] last 10 days?: No Have you been [...]
--- OUTSIDE RECORDS SUMMARY | 2024-10-13 09:39 | XMS_ITS ---
Author Name [facility] Address [address] [place] [address] Care Team Providers Care Metal Welder Name Role Phone NADRADE RAMACHANDRAN Primary Care Provider Unavailabl e Insurance [...] Patient's Relationship to Policy [facility] Nov 21, 2013 [id number] [place] CHARD PATIENT MEDICARE (WN) MEDICARE (M) PART B Nov 21, 2017 PART B [id number] [employer] CHARD PATIENT MEDICARE (WNR) MEDICARE (M) PART A Apr 23, 2001 PART A [id number] [place] CHARD PATIENT MEDICARE (WNR) MEDICARE (M) PART A Apr 23, 2001 PART A [id number] [employer] [employer] PATIENT Selected Encounter This [...] and adjustment of hearing aid BECK BUSTAMANTE [facility] Oct 22, 2023 02:28 PM SECONDARY Sensorineural hearing loss, bilateral BECK BUSTAMANTE [facility] Advance Directives: All historical and current [...] recommended. He is a previous user of streamOnce BTEs. How does the patient best learn? Verbal instruction, demonstration Does the patient have any cultural and spiritism beliefs, emotional barriers, physical or cognitive limitations, and communication barriers which may impact his ability to learn? No Desire and motivation to learn? Good OBJECTIVE (O): Physical fit of hearing aids was good. Patient verified comfort. Verification of an appropriate acoustic response was obtained using Real Ear measurements (speech mapping) and NAL-NL2 targets. The patient reported good subjective benefit as well. Feedback implementation project manager was run. Hearing aids were found to be meeting targets adequately and MPO was not exceeding estimated UCL. Settings stored in MAITE. ASSESSMENT (A): The following devices were issued: Make: Khushboo Model: Daphne AI ITC Rechargeable Right Serial Number: [id number] Left Serial Number: [id number] Battery size: RECHARGEABLE Warranty ends: 10/30/26 Trial [...] hearing aid is made by the [place] instructional systems design consultant. Hearing aids will not be replaced in [...] Not Applicable NA /annika/ JOANNA BUSTAMANTE STAFF SONOSCOPE OPERATOR Signed: 10/22/2023 14:28 12/10/2023 ADDENDUM STATUS: COMPLETED [place] returned IOI-SANCHEZ Outcome Measure to the clinic via mail with an overall score of 30 Based on this score: i. No follow-up call is indicated _XX_ ii. Follow-up call is indicated and fitting clinician will be notified __ /es/ LETICIA CLEMONS [facility] Head Of Commission Department Signed: 12/10/2023 15:31 JOANNA BUSTAMANTE [facility] [place] [facility]
[2024-10-13 09:58] LABS: Basophils Absolute Auto 0.1 X10*3/uL (0.0-0.2); Basophils Percent Auto 0.9 % (0-2); Eosinophils Absolute Auto 0.2 X10*3/uL (0.0-0.4); Hematocrit 42.7 % (42.0-52.0); Hemoglobin 14.3 g/dl (14.0-18.0); Imm Gran Abs Auto 0.02 X10*3/uL (0.00-0.03); Imm Gran Pct Auto 0.3 % (0.0-0.4); Lymphocytes Absolute Auto 1.1 X10*3/uL (1.2-4.9); Lymphocytes Percent Auto 17.6 % (20-40); Mean Corpuscular HGB Conc 33.5 g/dl (31.0-36.0); Mean Corpuscular Hemoglobin 31.4 pg (27.0-33.0); Mean Corpuscular Volume 93.8 fL (80.0-98.0); Monocytes Absolute Auto 0.6 X10*3/uL (0.1-1.2); Monocytes Percent Auto 9.6 % (2-11); Neutrophils Absolute Auto 4.4 x10*3/uL (2.0-8.3); Neutrophils Percent Auto 68.6 % (45-73); Platelet Count 269 X10*3/uL (160-400); Red Blood Count 4.55 X10*6/uL (4.60-5.80); Red Cell Distribution Width 13.2 % (11.0-16.0); White Blood Count 6.4 X10*3/uL (4.8-10.8)
[2024-10-13 10:04] LABS: Estimated Average Glucose 123 mg/dL; Hemoglobin A1c % 5.9 % (<6.0); Total Hemoglobin (HGBA1C) 3739.4852 umol/L
[2024-10-13 10:58] LABS: Alanine Aminotransferase 13 U/L (0-40); Albumin Level 3.9 g/dL (3.5-5.0); Alkaline Phosphatase 93 U/L (39-117); Anion Gap 12 (12-20); Aspartate Amino Transferase 18 U/L (5-37); Bilirubin Total 0.9 mg/dL (0.0-1.0); Blood Urea Nitrogen 29 mg/dL (9-16); Calcium 9.1 mg/dL (8.4-10.2); Carbon Dioxide 19 mmol/L (22-29); Chloride 112 mmol/L (96-108); Cholesterol 150 mg/dL (<200); Estimated Glomerular Filt Rate > 60; Glucose Fasting 116 mg/dL (60-99); HDL Cholesterol 61 mg/dL (>40); LDL Cholesterol Calculated 80 mg/dL (<100); Potassium 4.2 mmol/L (3.3-5.1); Sodium 139 mmol/L (135-145); Total Protein 7.4 g/dL (6.5-8.0); Triglycerides 47 mg/dL (<150)
== END 2024-10-13 09:10 | disposition home or self-care (01) ==
LOC: HO.LAB 09:09
PROVIDERS: PCP Internal Medicine Medical Oncology; Visit Provider Internal Medicine Medical Oncology
DX: N40.0 Benign prostatic hyperplasia without lower urinary tract symptoms (principal); E66.9 Obesity, unspecified; E11.9 Type 2 diabetes mellitus without complications
CPT/HCPCS: 36415; 80053; 80061; 83036; 85025

== ENCOUNTER 2025-03-05 09:00 | Outpatient (REF) | payer OTHER, MEDICARE, SELFPAY ==
--- OUTSIDE RECORDS SUMMARY | 2025-03-05 04:15 | XMS_ITS | Continuity of Care Document ---
Author Name [facility] Organization [facility] Care Team Providers Care Working Foreman Name Role Phone [facility] Unavailable Unavailable Problems Combined list of problems from Department of Defense and Veterans Affairs facilities. It does not include entries that were removed or entered in error. 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 022 Condition [facility] Chronic kidney disease stage 3A Active 021 Condition Nov 08, 2024 Entered By: JOEL TREVINO Comment: follows with Nephrology ?[facility] Age related macular degeneration Active Condition Nov 08, 2024 Entered By: JOEL TREVINO Comment: [facility] [place] , Dr Patterson [place] [facility] Benign prostatic hyperplasia Active Condition CHECK Cataract Active Condition Nov 03 Entered By: JOANNA HAM Comment: Unspecified [place] [facility] Diabetic peripheral neuropathy Active Condition Nov 08, 2024 Entered By: JOEL TREVINO Comment: mild. noted 10/2024 [place] [facility] Essential hypertension Active Condition CHECK H/O: osteoarthritis Active Condition [facility] History of DVT Right LE Active Condition Nov 27, 2016 Entered By: ANDRADE RAMACHANDRAN Comment: 2024 Entered By: JOEL TREVINO Comment: Post Op following lumbar surgery. No recurrence after tx x 6 mo w/ warf [facility] History of Pulmonary Emboli Active Condition Nov 27, 2016 Entered By: ANDRADE RAMACHANDRAN Comment: 05/2016 - Right LungNov 08, 2024 Entered By: JOEL TREVINO Comment: Post Op following lumbar surgery. 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 A1C 5.9% 2024 [place] [facility] Urinary incontinence Active Condition [facility] Diagnosis: ICD-10-CM E11.9 Type 2 diabetes mellitus without complications Active Diagnosis [facility] Diagnosis: ICD-10-CM Z46.1 Encounter for fitting and adjustment of hearing aid Active Diagnosis [facility] Diagnosis: ICD-10-CM H90.3 Sensorineural hearing loss, bilateral Active Diagnosis [facility] Medications Combined list of outpatient medications from Department of Defense and Veterans Affairs facilities.Medications provided include 1) outpatient medications from the last 15 months, and 2) patient-reported medications. Medication Details Route Status Patient Instructions Prescription Expires Prescription Number Last Dispense Date Ordering Provider Order Date Order Qty Source AMLODIPINE BESYLATE 10MG TAB TAKE ONE TABLET BY MOUTH ONCE DAILY ORAL ACTIVE BROOKE HARMON 2024 [facility] ASPIRIN 81MG TAB,EC TAKE ONE TABLET BY MOUTH ONCE DAILY ORAL ACTIVE LUBNA CCHIOBROOKE DANA 2024 [facility] ATORVASTATI N CA 20MG TAB TAKE ONE-HALF TABLET BY MOUTH DAILY ORAL ACTIVE BRI PISANO 2013 IELD FINASTERIDE 5MG TAB TAKE ONE TABLET BY MOUTH ONCE DAILY ORAL ACTIVE COLLAZO-WILMAR SOBIABROOKE DANA 2024 [facility] METFORMIN HCL 500MG TAB TAKE ONE TABLET BY MOUTH DAILY ORAL ACTIVE BRI PISANO 2013 IELD TAMSULOSIN HCL 0.4MG CAP TAKE 1 CAPSULE BY MOUTH TWICE DAILY ORAL ACTIVE PUNEET RAMACHANDRAN SA 2018 [facility] Allergies, Adverse Reactions, Alerts Combined list of allergies from Department of Defense and Veterans Affairs facilities. It does not include entries that were removed or entered in error. Substance Category Reaction Severity Reaction type Status Date Reported Comments Source SHELLFISH Propensity to adverse reactions to food (finding) Urticaria [facility] 4 [facility] Immunizations Combined list of available immunizations from the Department of Defense and Veterans Affairs facilities. Immunization Series Date Given Administered By Site Reaction Lot Number CVX Code Drug Criminal Justice Lawyer Status Comments Source ZOSTER RECOMBINANT 1 2024 DANIEL MONTES LEFT DELTO ID [id number] 187 complet ed [place], adjuvant suspensio n component [id number] [facility] COVID-19 (PFIZER), MRNA, LNP-S, PF, DAVE-SUCROSE, 30 MCG/0.3 ML (AGES 12+ YEARS) 2023 309 complet ed HISTORICA L INFORMATI ON - FROM OTHER REGISTRY, Pfizer COVID-19 (Comirnat y), Mrna, Lnp-s, Pf, Dave-sucr ose, 30 Mcg/0.3 Ml, 12yr+ Mfr: [employer] [facility] INFLUENZA, HIGH-DOSE, TRIVALENT, PF 2023 135 complet ed HISTORICA L INFORMATI ON - FROM OTHER REGISTRY, Influenza (FLUZONE) , high-dose , trivalent , PF [facility] COVID-19 (PFIZER), MRNA, LNP-S, PF, DAVE-SUCROSE, 30 MCG/0.3 ML (AGES 12+ YEARS) 2022 309 complet ed HISTORICA L INFORMATI ON - FROM OTHER REGISTRY, [facility] COVID-19 (Comirnat y), Mrna, Lnp-s, Pf, Dave-sucr ose, 30 Mcg/0.3 Ml, 12yr+ Mfr: [employer] [facility] TD(ADULT) UNSPECIFIED FORMULATION 2021 139 complet ed HISTORICA L INFORMATI ON - FROM OTHER REGISTRY, [facility] COVID-19 (MODERNA), MRNA, LNP-S, PF, 100 MCG/0.5ML DOSE OR 50 MCG/0.25ML DOSE 2021 207 complet ed HISTORICA L INFORMATI ON - FROM OTHER REGISTRY, Moderna COVID-19 Vaccine, rag shredder blue label, 12+ Primary Series Mfr: [employer] [facility] COVID-19 (MODERNA), MRNA, LNP-S, PF, 100 MCG/0.5ML DOSE OR 50 MCG/0.25ML DOSE 2020 207 complet ed HISTORICA L INFORMATI ON - FROM OTHER REGISTRY, Moderna COVID-19 Vaccine, rag shredder blue label, 12+ Primary Series [facility] COVID-19 (MODERNA), MRNA, LNP-S, PF, 100 MCG/0.5ML DOSE OR 50 MCG/0.25ML DOSE 2 2020 207 complet ed HISTORICA L INFORMATI ON - FROM OTHER REGISTRY, [facility] COVID-19 (MODERNA), MRNA, LNP-S, PF, 100 MCG/0.5ML DOSE OR 50 MCG/0.25ML DOSE 1 2020 207 complet ed HISTORICA L INFORMATI ON - FROM OTHER REGISTRY, Mfr: [employer] [facility] INFLUENZA, SEASONAL, INJECTABLE 2017 141 complet ed Employer [facility] FLU,3 YRS (HISTORICAL) 2015 88 complet ed [facility] PNEUMOCOCCAL CONJUGATE PCV 13 2014 133 complet ed [place] FLU,3 YRS (HISTORICAL) 2014 88 complet ed form his work [facility] FLU,3 YRS (HISTORICAL) 2013 88 complet ed Outside Provider [facility] TDAP 2011 115 complet ed [facility] Vital Signs Combined list of inpatient and outpatient Vital Signs from Department of Defense and Veterans Affairs, ranging from 12 months to all on record, depending upon the facility. Vital Sign Value Date Comments Source SYSTOLIC BLOOD PRESSURE 142 11/09/19 25 12:53:27 [facility] DIASTOLIC BLOOD PRESSURE 82 025 12:53:27 [facility] PULSE OXIMETRY 98 11/08/2024 12:53:27 [facility] WEIGHT 219.4 11/08/2024 12:53:27 [facility] BMI 32 kg/m2 11/08/2024 12:53:27 [facility] PAIN 0 11/08/2024 12:53:27 [facility] HEIGHT 70 11/08/2024 12:53:27 [facility] TEMPERATURE 97.9 11/08/2024 12:53:27 [facility] PULSE 97 11/08/2024 12:53:27 [facility] RESPIRATION 70 11/08/2024 12:53:27 [facility] Encounters Combined list of: 1) Encounters from Department of Veterans Affairs facilities going backup to the last 18 months, not all VA inpatient encounters are included; 2) Encounters from the Department of Defense facilities going backup to 280 months. Location Location Details Encounter Type Encounter Number Reason For Visit Attending Provider ADM Date DC Date Status Disposition Source [facility] HEARING AID EXAM BOTH EARS [id number] Diagnos is: ICD-10- CM H90.3 Sensori neural hearing loss, FAB Wheeler 09/24 [facility] HEARING SERVICE [id number] Diagnos is: ICD-10- CM Z46.1 Encount er for fitting and adjustm ent of hearing aid RAFAL BUSTAMANTE 10/21 [facility] Outpatient Encounter [id number] 10/29 [facility] Out[facility] Encounter [id number] 04/26 [facility] Encounter [id number] 05/03 [facility] HEARING AID REPAIR/MOD IFYING [id number] Diagnos is: ICD-10- CM Z46.1 Encount er for fitting and adjustm ent of hearing aid CRISTY NOVA 10/20 [facility] Out[facility] Encounter [id number] 11/03 [facility] Out[facility] Encounter [id number] 11/03 [facility] OFFICE O/P NEW MOD 45 MIN [id number] Diagnos is: ICD-10- CM E11.9 Type 2 diabete s mellitu s without complic ations [facility] SUERO [facility] Social History Combined list of available smoking, tobacco, and other social history from Department of Defense and Veterans Affairs facilities. Social History Type Response Date Comment Sourc e Tobacco smoking status NHIS [place]-TOBACCO NEVER USED CIGARETTES 11/03/[address] [facility] [place] [facility] History of tobacco use [place]-TOBACCO NEVER USED OTHER TYPE 11/03/[address] [facility] [place] [facility] History of tobacco use [place]-TOBACCO NEVER USED 01/07/2018 [facility] Joni History of tobacco use LIFETIME NON-TOBACCO USER 01/07/2018 CHECK History of tobacco use LIFETIME NON-TOBACCO USER 11/27/2016 CHECK History of tobacco use LIFETIME NON-TOBACCO USER 06/18/2014 CHECK Plan of Care List of future care activities from [facility] facilities. Additional future care activities may be listed in the Assessment and Plan section. Date/Time Care Activity Care Activity Detail Facili ty 03/13/2025 AMBULATORY - MEDICINE AMBULATORY - MEDICI [facility] Advance Directives List of completed, amended, or rescinded Advance Directives on record at Department of Veterans Affairs facilities. An actual copy of the Directive is not included. Date Advance Directive Provider Source 07/25/2015 ADVANCE DIRECTIVE ALICJA SANDHU
[2025-03-05 09:15] LABS: MANUAL DIFF FLAG NO
--- OUTSIDE RECORDS SUMMARY | 2025-03-05 09:16 | XMS_ITS | Clinical Summary ---
Author Organization [facility] Address [address] [place] [address] Phone Care Team Providers Care Combination Building Inspector Name Role Phone Richie Hatfield MD Primary Care Provider [phone] Allergies Active Allergy Reactions Criticality Noted Date [...] 3a chronic kidney disease 07/25/2021 Hypertension 07/25/2021 Immunizations Immunization Administration Dates Next Due Influenza, Quadrivalent, Pre [...] Visit [facility] [address] [place] [address] Hollis Allison MD [address] [facility] [address] [place] [address] Health Maintenance Due Date Last Done Comments Diabetes: Ophthalmology Exam 02/18/2022 Diabetes: Pedal Pulse Checked 02/18/2022 Diabetes: Sensory Foot Exam 02/18/2022 Diabetes: Visual Foot Exam 02/18/2022 Diabetes: Hemoglobin A1C 08/26/2024 024, 07/17/2023, 06/06/2021 Influenza Vaccine (#1) 2025 4, 04/27/2023, 05/30/2021, Additional history exists Pneumococcal Vaccine: 50+ Years Completed 07/31/2015, 05/23/2015 Hepatitis B Vaccine Aged Out No longe [...] - 6.0 ... . Triglycerides 51 05/26/2024 us Historical Provider LAB BLOOD ORDERABLES Phoebe l Result from Last 3 Months or Most Recently Relevant to Health Maintenance Insurance Medicare [facility] Medicare [facility] Care Teams Combination Building Inspector Relationship Specialty Start Date End Date Richie Hatfield MD [address] [place] [address] [address] [place], [place] PCP - General Medical Oncology 06/16/21
--- OUTSIDE RECORDS SUMMARY | 2025-03-05 09:16 | XMS_ITS | Clinical Summary ---
Author Organization [facility] Address [address] [place] [address] Care Team Providers Care Automotive Service Technician Name Role Phone Unavailable Primary Care Provider Unavailabl e Source Comments PLEASE NOTE, if this patient is a minor, it may be UNLAWFUL to discuss sensitive information that is contained in these records (such as FAMILY PLANNING, MENTAL HEALTH or SUBSTANCE ABUSE) with the minor patient's parent or other person without the patient's specific authorization.[facility] Medications doxycycline monohydrate (ADOXA) 100 mg tablet Take 100 mg by mouth 2 (two) times daily 02/21/2021 Active atorvastatin (LIPITOR) 10 mg tablet Take 10 mg by mouth once daily 01/28/2021 Active lisinopriL 10 mg tablet Take 10 mg by mouth once daily 01/28/2021 Active metFORMIN (GLUCOPHAGE) 500 mg tablet Take 500 mg by mouth once daily 02/17/2021 Active tamsulosin (FLOMAX) 0.4 mg 24 hr capsule Take 1 Capsule by mouth 2 (two) times daily 01/06/2019 Active Active Problems No known active problems Immunizations Immunization Administration Dates Next Due Flu, High Dose, 65y+, Fluzone High Dose 04/28/20 22 Flu, Preservative Free 04/27/2023,05/30/2021 Influenza (FLUZONE), high-dose, trivalent, PF Moderna COVID-19 Vaccine, re d cap blue label, 12+ Primary Series 12/02/2021,06/27/2021 PPD 01/03/2024,12/28/2022 Pfizer COVID-19 (Comirnaty), Mrna, Lnp-s, Pf, Dave-sucrose, 30 Mcg/0.3 Ml, 12yr+ 05/03/2024,08/18/2023 TDAP 02/21/2012 Td (adult),2 Lf tetanus toxo id (TDVAX), preservative free 01/26/2022 Social History Tobacco Use Types Packs/Day Years Used Date Smoking Tobacco: Never Smokeless Tobacco: Never Alcohol Use Standard Drinks/Week Comments Yes 0 (1 standard drink = 0.6 oz pur e alcohol) Social Connections Answer Date Recorded Connectedness 0 2024 Financial Resource Strain Answer Date R ecorded Financial Resource Strain 0 2019 Stress Answer Date Recorded Stress 0 11/17/2019 Physical Activity Answer Date Recorded Physical Activity 0 11/17/2019 Food Insecurity Answer Date Recorded Food 0 05/18/2024 Transportation Needs Answer Date Record ed Transportation 0 11/17/2019 Housing Stability Answer Date Recorded Housing 0 11/17/2019 Safety and Environment Answer Date Narayan rded Safety 0 11/17/2019 Utilities Answer Date Recorded Utilities 0 11/17/2019 Employment Answer Date Recorded Stress 0 2024 Sex and Gender Information Value Date Recorded Sex Assigned at Male 02/27/2021 5:46 AM PDT Legal Sex Male 6:16 AM PST Gender Identity Male 02/27/2021 5:46 AM PDT Sexual Orientation Straight 03/03/2021 6: 48 AM PDT Last Filed Vital Signs Vital Sign Reading Time Taken Comments Blood Pressure 145/77 05/13/2023 3:38 PM EDT Pulse 91 05/13/2023 3:38 PM EDT Temperature 36.5 C (97.7 F) 03/06/2021 9:19 AM EDT Respiratory Rate 16 03/06/2021 9:19 AM EDT Oxygen Saturation 96% 02/27/2021 8:46 AM EDT Inhaled Oxygen Concentration - - Weight 107 kg (236 lb) 03/06/2021 9:19 AM EDT Height 179.1 cm (5' 10.5 ) 02/27/2021 8:46 AM ED T Body Mass Index 33.38 02/27/2021 8:46 AM EDT Plan of Treatment Health Maintenance Due Date Last Done Comments Dental FMX/Pano 1936 Dental Perio Charting 1936 Tobacco Screening 1936 Advanced Care Planning 1936 Imm-Zoster, Recombinant (1 of 2) 1986 Falls Prevention 2001 Imm-RSV (adult) (1 - 1-dose 75+ series) 2011 Hypertension Screening (#1) 05/12/2024 Alcohol and Drug Screen 08/23/2024 Depression Annual Screen 08/23/2024 [id number] ( season) 2024 05/03/2024, 08/18/2023, 12/02/2021, Additional history exists Dental Prophy 11/12/2024 11/11/2023, 04/24, 11/11/2022 Dental BW 11/17/2024 11/16/2023, 10/22, 04/22/2022 Dental Examination 11/17/2024 11/16/2023, 0 05/13/2023, 11/11/2022, Additional history exists Imm-Influenza (#1) 2025 04/26/2024, 0 04/27/2023, 04/28/2022, Additional history exists Imm-DTaP/Tdap/Td (3 - Td or Tdap) 01/27/2032 022, 02/21/2012 Imm-Pneumococcal 50+ Completed 07/31/2015, 05/23/20 15 Procedures Procedure Name Priority Date/Time Associated Diagnosis Comments BITEWINGS - FOUR RADIOGRAPHIC IMAGES Routine 11/16/2023 1:40 PM EDT Encounter for dental examination Caries of enamel (incipient) PERIODIC ORAL EVALUATION ESTABLISHED PATIENT Routine 11/16/2023 1:40 PM EDT Encounter for dental examination Full PROPHYLAXIS - ADULT Routine 024 3:00 PM EDT Encounter for dental examination from Last 3 Months or Most Recently Relevant to Health Maintenance Insurance [facility] Member Subscriber Plan / Payer (Ef fective 2014-Present) Name:Esdras Gonzales Relation to Subscriber:Self Name:Esdras Gonzales Payer ID:[id number] (NAIC) Type:Indemnity Address: [facility] [id number] [address]) Member Subscriber Plan / Payer (Ef fective 2020-Present) Name:Esdras Gonzales Relation to Subscriber:Self Name:Esdras Gonzales Payer ID:[id number] Group ID:Not on file Type:Indemnity Address: [address] [place] [address]
[2025-03-05 09:53] LABS: Hematocrit 40.5 % (42.0-52.0); Hemoglobin 13.4 g/dl (14.0-18.0); Imm Gran Abs Auto 0.02 X10*3/uL (0.00-0.03); Imm Gran Pct Auto 0.3 % (0.0-0.4); Lymphocytes Absolute Auto 1.2 X10*3/uL (1.2-4.9); Mean Corpuscular HGB Conc 33.1 g/dl (31.0-36.0); Mean Corpuscular Hemoglobin 31.2 pg (27.0-33.0); Mean Corpuscular Volume 94.2 fL (80.0-98.0); NRBC Abs Auto 0.000 X10*3/uL (0.0-0.012); NRBC Pct Auto 0.0 /100WBC (0.0-0.2); Platelet Count 258 X10*3/uL (160-400); Red Blood Count 4.30 X10*6/uL (4.60-5.80); White Blood Count 7.3 X10*3/uL (4.8-10.8)
[2025-03-05 09:59] LABS: Hemoglobin A1C 144.9291 umol/L; Total Hemoglobin (HGBA1C) 3517.1530 umol/L
[2025-03-05 10:18] LABS: Alanine Aminotransferase 12 U/L (0-40); Albumin Level 3.9 g/dL (3.5-5.0); Alkaline Phosphatase 90 U/L (39-117); Anion Gap 10 (12-20); Aspartate Amino Transferase 18 U/L (5-37); Blood Urea Nitrogen 30 mg/dL (9-16); Calcium 8.7 mg/dL (8.4-10.2); Carbon Dioxide 20 mmol/L (22-29); Chloride 113 mmol/L (96-108); Cholesterol 139 mg/dL (<200); Estimated Glomerular Filt Rate 52; HDL Cholesterol 56 mg/dL (>40); Potassium 4.3 mmol/L (3.3-5.1); Sodium 139 mmol/L (135-145); Total Protein 7.0 g/dL (6.5-8.0); Triglycerides 36 mg/dL (<150)
[2025-03-05 11:26] LABS: Microalbum/Creatinine Ratio Ur 284.3 ug/mg cr (<30)
== END 2025-03-05 09:01 | disposition home or self-care (01) ==
LOC: HO.LAB 09:00
PROVIDERS: PCP Internal Medicine Medical Oncology; Visit Provider Internal Medicine Medical Oncology
DX: E11.9 Type 2 diabetes mellitus without complications (principal); E78.01 Familial hypercholesterolemia; E66.9 Obesity, unspecified
CPT/HCPCS: 36415; 80053; 80061; 82043; 82570; 83036; 85025

== ENCOUNTER 2025-06-08 09:37 | Outpatient (REF) | payer MEDICARE, SELFPAY ==
--- OUTSIDE RECORDS SUMMARY | 2023-12-17 11:15 | XMS_ITS ---
Author Organization Richie Hatfield III, MD Address [address] [place] [address] [place] [address] Care Team Providers Care Javascript Engineer Name Role Phone Dr. Richie Hatfield III Primary Care Provider Allergies Allergen (clinical drug ingredient) Drug/Non Drug Allergy documented on EMR Reaction Allergy Type Onset Date Status Shellfish (FN) Shellfish-derived Products hives Drug Allergy Active Iodine Unknown Drug Allergy Active REASON FOR VISIT Cutaneous abscess right axilla, Diabetes, Obesity, Low back pain, Hypertension, Benign prostatic hypertrophy Medications Medication SIG (Take, Route, Frequency, Duration) Notes Start Date End Date Status amLODIPine Besylate 10 MG 1 tablet Orall y Once a day Active Atorvastatin Calcium 10 MG 1 tablet Oral ly Once a day Active Lisinopril 10 MG 1 tablet Orally Once a day Active Aspirin 81 81 MG 1 tablet Orally Once a day Active Mupirocin 2 % 1 application Mixer Runner ally Twice a day 11/29/2023 Active metFORMIN HCl 500 MG TAKE 1 tabletBY with meals Orally Once a day 90 days Active Tamsulosin HCl 0.4 MG 1 capsule Orally T wice a day Active Social History Tobacco Use: Social History Observation Description Date Details (start date - stop date) Never Smoker NA - NA Sex Assigned At : Social History Observation Description Sex Assigned At Male Tobacco Use/Smoking Question Answer Notes Patient is a nonsmoker Additional Findings: Tobacco Non-User Aggressive non-smoker Vital Signs Temperature 97.9 degrees Fahrenheit 12/17/19 24 Blood pressure systolic 119 mm Hg 12/17/19 24 Blood pressure diastolic 68 mm Hg 024 Heart Rate 74 /min 12/17/2023 Height 70 in 12/17/2023 Weight 223 lbs 12/17/2023 BMI 31.99 kg/m2 12/17/2023 Encounters Encounter Location Date Provider Diagnosis Richie Hatfield III, MD [address] [place] [address] [place] [address] 12/17/2023 Richie Hatfield Cutaneous abscess of right axilla L02.411 ; Essential hypertension I10 ; Benign prostatic hyperplasia, presence of lower urinary tract symptoms unspecified, unspecified morphology N40.0 ; Type 2 diabetes mellitus without complications E11.9 ; Obesity E66.9 and 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 No change in his regimen was made today. 12/17/2023 Benign prostatic hyperplasia, presence of lower urinary tract symptoms unspecified, unspecified morphology (ICD-10 - N40.0) He is under the care of urologist, who has stopped his warfarin. It seems they're planning to do a TURP. 12/17/2023 Type 2 diabetes mellitus without complications (ICD-10 - E11.9) Comprehensive blood work with a hemoglobin A1c, fasting glucose, microalbumin and fasting lipids has been ordered. No change in his regimen was needed today. 12/17/2023 Obesity (ICD-10 - E66.9) He has lost 8 pounds since his last visit. He was encouraged to continue losing weight at this rate until his weight is in the normal range. We have reviewed the elements of a diabetic weight loss diet. 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 He did not request any additional medication. Plan Of Treatment Medication Medication Name Sig Start Date Stop Date Notes amLODIPine Besylate 10 MG 1 tablet Orally Once a day Atorvastatin Calcium 10 MG 1 tablet Orally Once a day Lisinopril 10 MG 1 tablet Orally Once a day Aspirin 81 81 MG 1 tablet Orally Once a day Mupirocin 2 % 1 application Mixer Runner ally Twice a day 11/29/2023 metFORMIN HCl 500 MG TAKE 1 tabletBY MICKI with meals Orally Once a day 90 days Tamsulosin HCl 0.4 MG 1 capsule Orally Twice a day Next Appt Details Follow Up: As Scheduled, Dana son: OV Provider Name:Richie Hatfield , 06/12/2025 10:30:00 AM, [address] [place] [address] [address], [place], [address], Provider Name:Richie Hatfield , 03/13/2026 02:30:00 PM, [address] [place] [address] [address], [place], [address], Progress Notes * Esdras GONZALES GDOB: [birth year] (88 yo M)Acc No.[id number]:12/17/2023 Progress Notes Patient: Esdras De Los Santos Provider: Antoni Hatfield MD :[id number] A ge:88 Y S ex:Male Date:12/17/2023 Address:[address] [place] [address] [address] [id number] Subjective: * Chief Complaints: * C utaneous abscess right axillaDiabetesObesityLow back painHypertensionBenign prostatic hypertrophy * HPI: C OVID-19 Screening: On his last visit he was noted to have an abscess in the skin of his right axilla. Today is a visit to follow-up on the healing. He reports that the lump has resolved and there is no pain. On examination the abscess had resolved and no further treatment was necessary. A follow-up visit was arranged. Questions H ave you experienced fever, chills, cough, sore throat, shortness of breath, difficulty breathing, muscle aches, loss of taste or smell? N o H ave you been exposed to the virus within the last 10 days? N o H ave you travelled internationally in the last 10 days? N o H ave you been exposed to COVID-19 in the past? N o * ROS: G eneral/Constitutional: pain C hronic low back pain. C hills d enies. F atigue a dmits. F ever d enies. E NT: Decreased hearing i n both ears. R espiratory: Cough d enies. C ardiovascular: Chest pain with exertion d enies. D yspnea on exertion?denies. S hortness of breath d enies. G astrointestinal: Constipation o ccasional. D ecreased appetite d enies. D iarrhea d enies. H eartburn d enies. N ausea d enies. R ectal bleeding d enies. V omiting d enies. H ematology: bruising d enies. p etechiae d enies. S wollen glands n one have been noted. G enitourinary: Frequent urination t wice a night. M usculoskeletal: Muscle aches d enies. P ainful joints d enies. S ciatica d enies. W eakness d enies. S kin: Itching d enies. R danna d enies. S kin lesion(s)?denies. N eurologic: Difficulty speaking d enies. D izziness d enies.?Headache d enies. L ow back pain t hat is chronic. P sychiatric: Depressed mood d enies. * Medical History: * Surgical History: R ight L3-L4 extraforaminal microdiscectomy [id number] surgery 09/2016 * Hospitalization/Major Diagno stic Procedure: D enies Past Hospitalization * Family History: F ather: 83 yrs, myocardial infarction, diabetes mellitus, diagnosed with DM. M other: 67 yrs, uterine cancer, diagnosed with Cancer. S iblings: . 2 sister(s) . . His sisters have diabetes and hypetension. He has no children. He is not aware of any inherited cancer family syndrome. He is not aware of any family history of mental illness or substance use disorder, or addictions. Sisters . 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 * Medications: T akingAspirin 81 81 MG Tablet Delayed Release 1 tablet Orally Once a dayLisinopril 10 MG Tablet 1 tablet Orally Once a dayAtorvastatin Calcium 10 MG Tablet 1 tablet Orally Once a dayTamsulosin HCl 0.4 MG Capsule 1 capsule Orally Twice a daymetFORMIN HCl 500 MG Tablet TAKE 1 tabletBY MOUTH with meals Orally Once a day 90 days amLODIPine Besylate 10 MG Tablet 1 tablet Orally Once a dayMupirocin 2 % Ointment 1 application Externally Twice a day, stop date 12/19/2023Medication List reviewed and reconciled with the patientTaking Aspirin 81 81 MG Tablet Delayed Release 1 tablet Orally Once a dayTaking Lisinopril 10 MG Tablet 1 tablet Orally Once a dayTaking Atorvastatin Calcium 10 MG Tablet 1 tablet Orally Once a dayTaking Tamsulosin HCl 0.4 MG Capsule 1 capsule Orally Twice a dayTaking metFORMIN HCl 500 MG Tablet TAKE 1 tabletBY MOUTH with meals Orally Once a day 90 days Taking amLODIPine Besylate 10 MG Tablet 1 tablet Orally Once a dayTaking Mupirocin 2 % Ointment 1 application Externally Twice a day, stop date 12/19/2023Medication List reviewed and reconciled with the patient * Allergies: S hellfish-derived Products: hivesIodineno[Allergies Verified] Objective: * Vitals: H t: 70, Wt:223, BMI:31.99, BP:119/68, HR:74, Temp:97.9, Wt-k.15. * Examination: G eneral Examination: GENERAL APPEARANCE: p leasant, well nourished, well developed, in no acute distress, calm and relaxed , obese , elderly man. HEAD: a traumatic, normocephalic. EYES: e sera, perrla, anicteric, conjugate. EARS: n ormal. NOSE: s eptum intact. ORAL CAVITY: n ormal, unremarkable. NECK/THYROID: n o jugular venous distention, no carotid bruit, thyroid normal. LYMPH NODES: n o enlarged lymph nodes,spleen normal. SKIN: n o suspicious lesions, anicteric. HEART: n o clicks, gallops, murmurs, or rubs, regular rhythm, S1, S2 normal, no s3, or vascular bruits. LUNGS: c lear to auscultation . BREASTS: no masses palpable bilaterally. ABDOMEN: b owel sounds normal, no ascites, no organomegaly, no mass , centripital obesity. RECTAL EXAM: n ot examined. MUSCULOSKELETAL: e xtremities unremarkable, no clubbing, cyanosis or edema, Uses a walker, healed incision lumbar spine,. PERIPHERAL PULSES: n ormal. NEUROLOGIC: a lert and oriented, cranial nerves 2-12 grossly intact, deep tendon reflexes 2+ symmetrical, motor strength normal upper and lower extremities, sensory exam intact. PSYCH: a lert, oriented , cognitive function intact , cooperative with exam , good eye contact , judgement and insight good , mood/affect full range , speech clear , thought process logical, goal directed. Assessment: * Assessment: 1. C utaneous abscess of right axilla - L02.411 (Primary), This infection has resolved and no further treatment is needed 2 . E ssential hypertension - I10, His blood pressure is stable. No change in his regimen was made today. 3 . B enign prostatic hyperplasia, presence of lower urinary tract symptoms unspecified, unspecified morphology - N40.0, He is under the care of urologist, who has stopped his warfarin. It seems they're planning to do a TURP. 4 . T ype 2 diabetes mellitus without complications - E11.9, Comprehensive blood work with a hemoglobin A1c, fasting glucose, microalbumin and fasting lipids has been ordered. No change in his regimen was needed today. 5 . O besity - E66.9, He has lost 8 pounds since his last visit. He was encouraged to continue losing weight at this rate until his weight is in the normal range. We have reviewed the elements of a diabetic weight loss diet. 6 . L umbar disc herniation with myelopathy - M51.06, His back pain is present but mild and he has adapted to it. He did not request any additional medication. Plan: * Treatment: * Procedure Codes: * Preventive Medicine: Counseling: C are goal follow-up plan: Counseling for abnormal BMI given Y es Above Normal BMI Follow-up D ietary management education, guidance, and counseling, Dietary needs education, Exercise promotion: strength training, Exercise promotion: stretching, Feeding regime, Giving encouragement to exercise, Lifestyle education regarding diet, Nutrition / feeding management, Nutrition therapy, Prescribed activity/exercise education, Prescribed diet education, Prescribed dietary intake, Special diet education, Weight monitoring , Intervention, Order not done: Medical or Other reason not done DM Care Plan: P atient Lifestyle Goals P atient wants to be able to manage diabetes without too much effort. T reatment Goals H bA1C < 7.0, Blood Sugars less than < 115. B arriers n o barriers. S elf-Managment Goals W ork on weight loss, with a goal of losing 1 lb per week, Stop drinking juice and/or soda, replace with more water. * Follow Up: A s Scheduled (Reason: OV) * Images: * Sign off status: Completed true * Provider: Antoni Hatfield MD Date: 0 12/17/2023 Generated for Baljinder ng/Kan/eTransmitting on: 1 11:05 AM EDT History and Physical Notes * HPI (History of Present Illness) Category Sub-Category Detail Notes COVID-19 Screening Questions Have you had any new onset fever, chills, cough, congestion, sore throat, shortness of breath, muscle aches?: No Have you been exposed to the virus withi n the last 10 days?: No Have you travelled internationally in [facility] last 10 days?: No Have you been exposed to COVID-19 in the past?: No Examination Category Sub-Category Detail Notes General Examination GENERAL APPEARANCE: pleasant , well nourished, well developed, in no acute distress, calm and relaxed , obese , elderly man HEAD: atraumatic, normocep halic EYES: eomi, perrla, anicte joyce, conjugate EARS: normal NOSE: septum intact NECK/THYROID: no jugular venous di stention, no carotid bruit, thyroid normal HEART: no clicks, gallops, murmurs, or rubs, regular rhythm, S1, S2 normal, no s3, or vascular bruits LUNGS: clear to auscultatio n ABDOMEN: bowel sounds normal, no ascites, no organomegaly, no mass , centripital obesity NEUROLOGIC: alert and oriented, cranial nerves 2-12 grossly intact, deep tendon reflexes 2+ symmetrical, motor strength normal upper and lower extremities, sensory exam intact SKIN: no suspicious lesion s, anicteric PERIPHERAL PULSES: normal BREASTS: no masses palpable b ilaterally MUSCULOSKELETAL: extremities unremark able, no clubbing, cyanosis or edema, Uses a walker, healed incision lumbar spine, LYMPH NODES: no enlarged lymph no buffy,spleen normal RECTAL EXAM: not examined PSYCH: alert, oriented , co gnitive function intact , cooperative with exam , good eye contact , judgement and insight good , mood/affect full range , speech clear , thought process logical, goal directed ORAL CAVITY: normal, unremarkable
--- OUTSIDE RECORDS SUMMARY | 2023-12-24 13:15 | XMS_ITS ---
Author Organization Richie Hatfield III, MD Address [address] [place] [address] [place] [address] Care Team Providers Care Ad Setter Name Role Phone Dr. Richie Hatfield III Primary Care Provider REASON FOR VISIT Annual Exam Social History Sex Assigned At : Social History Observation Description Sex Assigned At Male Encounters Encounter Location Date Provider Diagnosis Richie Hatfield III, MD [address] [place] [address] [place] [address] 12/24/2023 Richie Hatfield Plan Of Treatment Next Appt Details Provider Name:Richie Hatfield , 06/12/2025 10:30:00 AM, [address] [place] [address] [place], [address], Provider Name:Richie Hatfield , 03/13/2026 02:30:00 PM, [address] [place] [address] [place], [address], Progress Notes * Esdrsa GONZALES GDOB: [birth year] (89 yo M)Acc No.[id number]:12/24/2023 Progress Notes Patient: Esdras ABERNATHY Provider: Antoni Htafield MD :1935 A ge:88 Y S ex:Male Date:12/24/2023 Address:[address] [place], [place] [address] [id number] Subjective: * Chief Complaints: * 1 . Annual Exam. * Medical History: Objective: * Vitals: Assessment: Plan: * Treatment: * Images: * The named appointment provid er may or may not be the originator of this progress note, and it is not deemed complete until electronically signed by the appointment provider. Sign off status: Pending * Provider: Antoni Hatfield MD Date: 0 12/24/2023 Generated for Baljinder medina/Kan/eTransmitting on: 1 11:04 AM EDT
--- OUTSIDE RECORDS SUMMARY | 2024-03-10 10:15 | XMS_ITS ---
Author Organization Richie Hatfield III, MD Address [address] [place] [address] [place] [address] Care Team Providers Care [employer] Umpire Name Role Phone Dr. Richie Hatfield III Primary Care Provider [phone] Allergies Allergen (clinical drug ingredient) Drug/Non Drug Allergy documented on EMR Reaction Allergy Type Onset Date Status Shellfish (FN) Shellfish-derived Products hives Drug Allergy Active Iodine Unknown Drug Allergy Active REASON FOR VISIT Annual Exam Medications Medication SIG (Take, Route, Frequency, Duration) Notes Start Date End Date Status Lisinopril 10 MG 1 tablet Orally Once a day Active Aspirin 81 81 MG 1 tablet Orally Once a day Active Atorvastatin Calcium 10 MG 1 tablet Oral ly Once a day Active Mupirocin 2 % 1 application Head Of English ally Twice a day 11/29/2023 Active amLODIPine Besylate 10 MG 1 tablet Orall y Once a day Active metFORMIN HCl 500 MG TAKE 1 [...] nonsmoker Additional Findings: Tobacco Non-User Aggressive non-smoker Alcohol Screen Question Answer Notes Did you have a drink containing alcohol in the p ast year? No Points 0 Interpretation Negative Vital Signs Temperature 99.2 degrees Fahrenheit 03/10/20 24 Blood pressure systolic 121 mm Hg 03/10/20 24 Blood pressure diastolic 73 mm Hg 024 Heart Rate 82 /min 03/10/2024 Height 70 in 03/10/2024 Weight 225 lbs 03/10/2024 BMI 32.28 kg/m2 03/10/2024 Encounters Encounter Location Date Provider Diagnosis Richie Hatfield III, MD [address] [place] [address] [address] [place], [place] [address] 03/10/2024 Richie Hatfield Benign prostatic hyperplasia, presence of lower urinary tract symptoms unspecified, unspecified morphology N40.0 ; Type 2 diabetes mellitus without complications E11.9 ; Hyperlipidemia type II E78.01 ; 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 We have discussed various lifestyle modifications he can use to reduce nocturia. 03/10/2024 Type 2 diabetes mellitus without complications (ICD-10 - E11.9) His diabetes appears to be well controlled at this time. He is compliant with his medications. No change in his regimen was necessary. Recommended weight loss. 03/10/2024 Hyperlipidemia type II (ICD-10 - E78.01) His only stable and no change in his regimen as needed. 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 He did not request any additional medication. 03/10/2024 Obesity (ICD-10 - E66.9) His body mass index is 32. He has recently lost weight. We discussed elements of weight reduction diabetic diet. We reviewed his weight loss strategy. 03/10/2024 Essential hypertension (ICD-10 - I10) His blood pressure is stable. No change in his regimen was made today. Plan Of Treatment Medication Medication Name Sig Start Date Stop Date Notes Lisinopril 10 MG 1 tablet Orally Once a day Aspirin 81 81 MG 1 tablet Orally Once a day Atorvastatin Calcium 10 MG 1 tablet Orally Once a day Mupirocin 2 % 1 application Head Of [place] ally Twice a day 11/29/2023 amLODIPine Besylate 10 MG 1 tablet Orally Once a day metFORMIN HCl 500 MG TAKE 1 tabletBY with meals Orally Once a day 90 days Tamsulosin HCl 0.4 MG 1 capsule Orally Twice a day Pending Test Test Name Order Date PROFILE, FASTING (COMPREHENSIVE METABOLI C) 03/10/2024 LIPID PANEL 03/10/2024 PSA, TOTAL 03/10/2024 CBC WITH AUTO DIFF 03/10/2024 Hemoglobin A1c 03/10/2024 Next Appt Details Follow Up: 3 Months, Reason: Office visit Provider Name:Richie Hatfield , 06/12/2025 10:30:00 AM, [address] [place] [address] [address], [place], [address], Provider Name:Richie Hatfield , 03/13/2026 02:30:00 PM, [address] [place] [address] [address], [place], [address], Progress Notes * Esdras GONZALES GDOB: [birth year] (88 yo M)Acc No.[id number]:03/10/2024 Progress Notes Patient: Esdras De Los Santos Provider: Antoni Hatfield MD :1935 A ge:88 Y S ex:Male Date:03/10/2024 Address:[address] [place] [address], [place]ZE-[id number] Subjective: * Chief Complaints: * A nnual Exam * HPI: D epression Screening: He returns to the office at the age of 88 for his annual physical examination. He has had sniffles and a sore throat and a cough for 72 hours. He describes this as a mild cold. 2 days ago he had a negative test for ruth virus. His back pain has continued to improve and does not affect his ability to work or conducting activities of daily life. He has been compliant with his diabetic medication. He tests his fasting glucose all of which have been below 150. He has had comprehensive blood work which was reviewed with him in detail. PHQ-9 L ittle interest or pleasure in doing things?Not at all F eeling down, depressed, or hopeless N ot at all T rouble falling or staying asleep, or sleeping too much N ot at all F eeling tired or having little energy N ot at all P oor appetite or overeating N ot at all F eeling bad about yourself or that you are a failure, or have let yourself or your family down N ot at all T rouble concentrating on things, such as reading the newspaper or watching television N ot at all M oving or speaking so slowly that other people could have noticed; or the opposite, being so fidgety or restless that you have been moving around a lot more than usual N ot at all T houghts that you would be better off or of hurting yourself in some way N ot at all T otal Score 0 C OVID-19 Screening: Questions H ave you experienced fever, chills, cough, sore throat, shortness of breath, difficulty breathing, muscle aches, loss of taste or smell? Y es Cough H ave you been exposed to the virus within the last 10 days? N o H ave you travelled internationally in the last 10 days? N o H ave you been exposed to COVID-19 in the past? N o S QUIRINO Questions: SDOH Questions I n the past year have you been worried about losing your housing? N o I n the past year have you or any family members you live with been unable to get any of the following when it was really needed? Check all that apply: D ecline to answer * ROS: G eneral/Constitutional: pain M ild chronic low back pain, otherwise only normal aches and pains. C hills d enies. F atigue a dmits. F ever d enies. ? E NT: Decreased hearing i n both ears. R espiratory: Cough d enies. C ardiovascular: Chest pain with exertion d enies. D yspnea on exertion?with prolonged activity. S hortness of breath t hat is moderate. G astrointestinal: Constipation o ccasional. D ecreased appetite d enies. D iarrhea d enies. H eartburn o ccasional. N ausea d enies. R ectal bleeding d enies. V omiting d enies. H ematology: bruising d enies. p etechiae d enies. S wollen glands n one have been noted. G enitourinary: Frequent urination o nce a night. M usculoskeletal: Muscle aches d enies. P ainful joints d enies. S ciatica d enies. W eakness B oth legs, uses walker. S kin: Itching d enies. R danna d enies. S kin lesion(s)?denies. N eurologic: Difficulty speaking d enies. D izziness d enies.?Headache d enies. L ow back pain t hat is chronic. P sychiatric: Depressed mood d enies. * Medical History: * Surgical History: R ight L3-L4 extraforaminal microdiscectomy [id number] surgery 09/2016 * Hospitalization/Major Diagno stic Procedure: [...] dditional Findings: Tobacco Non-User A ggressive non-smoker D rugs/Alcohol: D rugs H ave you used drugs other than those for medical reasons in the past 12 months? N o Alcohol Screen D id you have a drink containing alcohol in the past year? 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 * Medications: T akingAspirin 81 81 MG [...] % Ointment 1 application Externally Twice a dayMedication List reviewed and reconciled with the patientTaking [...] % Ointment 1 application Externally Twice a dayMedication List reviewed and reconciled with the patient * Allergies: S hellfish-derived Products: hivesIodineno[Allergies Verified] Objective: * Vitals: H t: 70, Wt:225, BMI:32.28, BP:121/73, HR:82, Temp:99.2, Wt-k.06. * P ast Orders: Lab:Microalbumin, Random * Order Date 03/03/2024 07/17/2023 12/11/2022 Creatinine Urine 57.11 (Ref Range: mg/dL) 68.06 (Ref Range: mg/dL) 50.65 (Ref Range: mg/dL) Microalbumin Urine 137.0 (Ref Range: mg/L) 161.0 (Ref Range: mg/L) 94.0 (Ref Range: mg/L) Microalbum Creatinine Ratio Ur 239.8 H (Ref Range: <30 ug/mg cr) 236.5 H (Ref Range: <30 ug/mg cr) 185.5 (Ref Range: ug/mg cr) * Lab:Urinalysis * Order Date 03/03/2024 11/12/2021 Color Urine Yellow YELLOW Appearance Urine Clear CLEAR PH 6.5 (Ref Range: 5.0-9.0) 5.5 (Ref Range: 5.0-8.0) Glucose Urine UA Negative (Ref Range: Negative mg/dL) NEG (Ref Range: NEG MG/DL) Urine Blood Negative (Ref Range: Negative) NEG (Ref Range: NEG) Specific [place] - Urine 1.015 (Ref Range: 1.005-1.025) 1.010 (Ref Range: 1.005-1.025) Urine Protein Trace (Ref Range: Neg-Trace mg/dL) TRACE (Ref Range: NEG-TRACE MG/DL) Urine Ketones Negative (Ref Range: Negative mg/dL) NEG (Ref Range: NEG MG/DL) Nitrite Urine Negative (Ref Range: Negative) NEG (Ref Range: NEG) Leukocyte Esterase Urine Negative (Ref Range: Negative) NEG (Ref Range: NEG) ???Lab:Calcium (Order Date - 03/03/2024) (Collection Date - 03/03/2024)? ValueReference Range?Calcium9.38.4-10.2 - mg/dL ???Lab:Creatinine (Order Date 03/03/2024) (Collection Date - 03/03/2024) ?ValueReference Range?Creatinine1.44H0.5-1.4 - mg/dL ?Estimated Glomerular Filt Rate46- * Lab:Lipid Panel * Order Date 03/03/2024 07/17/2023 03/19/2023 Triglycerides 51 (Ref Range: <150 mg/dL) 40 (Ref Range: <150 mg/dL) 38 (Ref Range: mg/dL) Cholesterol 142 (Ref Range: <200 mg/dL) 138 (Ref Range: <200 mg/dL) 142 (Ref Range: mg/dL) LDL Cholesterol Calculated 80 (Ref Range: <100 mg/dL) 77 (Ref Range: <100 mg/dL) 84 (Ref Range: mg/dl) HDL Cholesterol 52 (Ref Range: >40 mg/dL) 53 (Ref Range: >40 mg/dL) 51 (Ref Range: mg/dL) ???Lab:Vitamin D 25-OH Total (Order Date - 03/03/2024) (Collection Date - 03/03/2024)?ValueReference Range?Vitamin D 25-OH Total16.3L>30 - ng/mL ???Lab:Parathyroid Hormone Intact (Order Date - 03/03/2024) (Collection Date - 03/03/2024)?ValueReference Range?Parathyroid Hormone Mhtoqi542.3H 8.7-77.1 - pg/mL ???Lab:Blood Urea Nitrogen (Order Date - 03/03/2024) (Collection Date - 03/03/2024)?ValueReference Range?Blood Urea Jzwuutwl14Y8-53 - mg/dL ???Lab:Albumin Level (Order Date - 03/03/2024) (Collection Date - 03/03/2024) ?ValueReference Range?Albumin Level4.03.5-5.0 - g/dL * Lab:Hemoglobin A1c * Order Date 03/03/2024 07/17/2023 03/19/2023 Hemoglobin A1c % 6.0 (Ref Range: <6.0 %) 6.3 H (Ref Range: <6.0 %) 5.6 (Ref Range: %) Estimated Average Glucose 126 (Ref Range: mg/dL) 134 (Ref Range: mg/dL) 114 (Ref Range: mg/dL) ???Lab:Electrolytes (Order Date - 03/03/2024) (Collection Date - 03/03/2024) ?ValueReference Range?Yncrvm777612-874 - mmol/L?Potassium 4.53.3-5.1 - mmol/L?Dhtgsicj086L56-464 - mmol/L?Carbon Dqffnfb94 22-29 - mmol/L?Anion Dfk6652-65 - ???Lab:Protein Creatinine Ratio, Ur (Order Date - 03/03/2024) (Collection Date - 03/03/2024)?ValueReference Range?Total Protein Urine Eiemwu38Z<12 - mg/dL?Protein/Creatinine Ratio, Ur0.39H<0.2 - * Lab:Comprehensive [place]. Pane l Fast * Order Date 03/03/2024 03/19/2023 12/11/2022 Sodium 139 (Ref Range: 135-145 mmol/L) 141 (Ref Range: 135-145 mmol/L) 141 (Ref Range: 135-145 mmol/L) Bilirubin Total 0.8 (Ref Range: 0.0-1.0 mg/dL) 0.6 (Ref Range: 0.0-1.0 mg/dL) 0.9 (Ref Range: 0.0-1.0 mg/dL) Aspartate Amino Transferase 15 (Ref Range: 5-37 U/L) 15 (Ref Range: 5-37 U/L) 17 (Ref Range: 5-37 U/L) Alanine Aminotransferase 12 (Ref Range: 0-40 U/L) 12 (Ref Range: 0-40 U/L) 16 (Ref Range: 0-40 U/L) Total Protein 6.9 (Ref Range: 6.5-8.0 g/dL) 7.2 (Ref Range: 6.5-8.0 g/dL) 6.7 (Ref Range: 6.5-8.0 g/dL) Albumin Level 4.0 (Ref Range: 3.5-5.0 g/dL) 3.9 (Ref Range: 3.5-5.0 g/dL) 3.9 (Ref Range: 3.5-5.0 g/dL) Alkaline Phosphatase 86 (Ref Range: 39-117 U/L) 88 (Ref Range: 39-117 U/L) 82 (Ref Range: 39-117 U/L) Potassium 4.3 (Ref Range: 3.3-5.1 mmol/L) 4.1 (Ref Range: 3.3-5.1 mmol/L) 5.0 (Ref Range: 3.3-5.1 mmol/L) Chloride 109 H (Ref Range: 96-108 mmol/L) 110 H (Ref Range: 96-108 mmol/L) 110 H (Ref Range: 96-108 mmol/L) Carbon Dioxide 22 (Ref Range: 22-29 mmol/L) 20 L (Ref Range: 22-29 mmol/L) 22 (Ref Range: 22-29 mmol/L) Anion Gap 12 (Ref Range: 12-20) 15 (Ref Range: 12-20) 14 (Ref Range: 12-20) Blood Urea Nitrogen 27 H (Ref Range: 9-16 mg/dL) 27 H (Ref Range: 9-16 mg/dL) 27 H (Ref Range: 9-16 mg/dL) Creatinine 1.28 (Ref Range: 0.5-1.4 mg/dL) 1.40 (Ref Range: 0.5-1.4 mg/dL) 1.36 (Ref Range: 0.5-1.4 mg/dL) Estimated Glomerular Filt Rate 53 48 50 Glucose Fasting 120 H (Ref Range: 60-99 mg/dL) 119 H (Ref Range: 60-99 mg/dL) 118 H (Ref Range: 60-99 mg/dL) Calcium 9.0 (Ref Range: 8.4-10.2 mg/dL) 9.0 (Ref Range: 8.4-10.2 mg/dL) 8.8 (Ref Range: 8.4-10.2 mg/dL) ???Lab:Phosphorus (Order Date - 03/03/2024) (Collection Date - 03/03/2024) ?ValueReference Range?Phosphorus3.22.7-4.5 - mg/dL ???Lab:Magnesium (Order Date - 03/03/2024) (Collection Date - 03/03/2024) ?ValueReference Range?Magnesium2.21.6-2.6 - mg/dL * Examination: G eneral Examination: GENERAL APPEARANCE: [...] xtremities unremarkable, no clubbing, cyanosis or edema, Healed surgical scar over lumbar spine, . PERIPHERAL PULSES: n ormal. NEUROLOGIC: a lert and oriented, cranial nerves 2-12 grossly intact, deep tendon reflexes 2+ symmetrical, motor strength normal upper extremities, sensory exam intact, Mild to moderate muscle weakness lower extremities with unsteady gait, uses cane and walker. PSYCH: a lert, oriented , cognitive function intact , thought process logical, goal directed , speech clear , mood/affect full range , judgement and insight good , good eye contact , cooperative with exam. Assessment: * Assessment: 1. B enign prostatic hyperplasia, presence of lower urinary tract symptoms unspecified, unspecified morphology - N40.0, He rises from sleep about once a night to urinate. We have discussed various lifestyle modifications he can use to reduce nocturia. 2 . T ype 2 diabetes mellitus without complications - E11.9, His diabetes appears to be well controlled at this time. He is compliant with his medications. No change in his regimen was necessary. Recommended weight loss. 3 . H yperlipidemia type II - E78.01, His only stable and no change in his regimen as needed. 4 . L umbar disc herniation with myelopathy - M51.06, His back pain is present but mild and he has adapted to it. He did not request any additional medication. 5 . O besity - E66.9, His body mass index is 32. He has recently lost weight. We discussed elements of weight reduction diabetic diet. We reviewed his weight loss strategy. 6 . E ssential hypertension - I10, His blood pressure is stable. No change in his regimen was made today. Plan: * Treatment: 2. T ype 2 diabetes mellitus without complications L AB: PROFILE, FASTING (COMPREHENSIVE METABOLIC) L AB: LIPID PANEL L AB: PSA, TOTAL L AB: CBC WITH AUTO DIFF L AB: Hemoglobin A1c 3. H yperlipidemia type II L AB: PROFILE, FASTING (COMPREHENSIVE METABOLIC) L AB: LIPID PANEL L AB: PSA, TOTAL L AB: CBC WITH AUTO DIFF L AB: Hemoglobin A1c 4. O thers Continue Aspirin 81 Tablet Delayed Release, 81 MG, 1 tablet, Orally, Once a day; C ontinue Lisinopril Tablet, 10 MG, 1 tablet, Orally, Once a day; C ontinue Atorvastatin Calcium Tablet, 10 MG, 1 tablet, Orally, Once a day; C ontinue Tamsulosin HCl Capsule, 0.4 MG, 1 capsule, Orally, Twice a day; C ontinue metFORMIN HCl Tablet, 500 MG, TAKE 1 tabletBY MOUTH with meals Orally Once a day 90 days; C ontinue amLODIPine Besylate Tablet, 10 MG, 1 tablet, Orally, Once a day; C ontinue Mupirocin Ointment, 2 %, 1 application, Externally, Twice a day. * Procedure Codes: * Preventive Medicine: Counseling: [...] without too much effort. T reatment Goals B lood Sugars less than < 115, HbA1C < 7.0. B arriers n o barriers. S elf-Managment Goals W ork on weight loss, with a goal of losing 1 lb per week, Stop drinking juice and/or soda, replace with more water. * Follow Up: 3 Months (Reason: Office visit) * Images: * Sign off status: Completed true * Provider: Antoni Hatfield MD Date: 0 03/10/2024 Generated for Baljinder medina/Kan/Job on: 11:05 AM EDT History and Physical Notes * HPI (History of Present Illness) Category Sub-Category Detail Notes Depression Screening PHQ-9 Little inte rest or pleasure in doing things: Not at all Feeling down, depressed, or hopeless: No t at all Trouble falling or staying asleep, or sl eeping too much: Not at all Feeling tired or having little energy: N ot at all Poor appetite or overeating: Not at all Feeling bad about yourself o r that you are a failure, or have let yourself or your family down: Not at all Trouble concentrating on thi ngs, such as reading the newspaper or watching television: Not at all Moving or speaking so slowly that other people could have noticed; or the opposite, being so fidgety or restless that you have been moving around a lot more than usual: Not at all Thoughts that you would be b martin off or of hurting yourself in some way: Not at all Total Score: 0 COVID-19 Screening Questions Have you had any new onset fever, chills, cough, congestion, sore throat, shortness of breath, muscle aches?: Yes Cough Have you been exposed to the virus withi n the last 10 days?: No Have you travelled internationally in last 10 days?: No Have you been exposed to COVID-19 in the past?: No SDOH Questions SDOH Questions In the past year have you been worried about losing your housing?: No In the past year have you or any family members you live with been unable to get any of the following when it was really needed? Check all that apply:: Decline to answer Examination Category Sub-Category Detail Notes General Examination [...] reflexes 2+ symmetrical, motor strength normal upper extremities, sensory exam intact, Mild to moderate muscle weakness lower extremities with unsteady gait, uses cane and walker SKIN: no suspicious lesion s, anicteric PERIPHERAL PULSES: normal BREASTS: no masses palpable b ilaterally MUSCULOSKELETAL: extremities unremark able, no clubbing, cyanosis or edema, Healed surgical scar over lumbar spine, LYMPH NODES: no enlarged lymph no buffy,spleen normal RECTAL EXAM: not examined PSYCH: alert, oriented , co gnitive function intact , thought process logical, goal directed , speech clear , mood/affect full range , judgement and insight good , good eye contact , cooperative with exam ORAL CAVITY: normal, unremarkable
--- OUTSIDE RECORDS SUMMARY | 2024-03-13 05:01 | XMS_ITS ---
Author Organization Richie Hatfield III, MD Address [address] [place] [address] [place] [address] Care Team Providers Care Chainer Name Role Phone Dr. Richie Hatfield III Primary Care Provider REASON FOR VISIT Message Social History Sex Assigned At : Social History Observation Description Sex Assigned At Male Encounters Encounter Location Date Provider Diagnosis Richie Hatfield III, MD [address] [place] [address] [place] [address] 03/13/2024 Richie Hatfield Plan Of Treatment Next Appt Details Provider Name:Richie Hatfield , 06/12/2025 10:30:00 AM, [address] [place] [address] [place], [address], Provider Name:Richie Hatfield , 03/13/2026 02:30:00 PM, [address] [place] [address] [place], [address], Progress Notes * Esdras GONZALES GDOB: [birth year] (88 yo M)Acc No.[id number]:03/13/2024 Patient: Mary parminderEsdras :1935 A ge:88 Y S ex:Male Address:[address] [place] [address] [address], [place] [address] * true * Date: Generated for Baljinder medina/Kan/Job on: 11:04 AM EDT
--- OUTSIDE RECORDS SUMMARY | 2024-03-14 10:18 | XMS_ITS ---
Author Organization Richie Hatfield III, MD Address [address] [place] [address] [place] [address] Care Team Providers Care Recreational Resort Manager Name Role Phone Dr. Richie Hatfield III Primary Care Provider REASON FOR VISIT Message Social History Sex Assigned At : Social History Observation Description Sex Assigned At Male Encounters Encounter Location Date Provider Diagnosis Richie Hatfield III, MD [address] [place] [address] [place] [address] 03/14/2024 Richie Hatfield Plan Of Treatment Next Appt Details Provider Name:Richie Hatfield , 06/12/2025 10:30:00 AM, [address] [place] [address] [place], [address], Provider Name:Richie Hatfield , 03/13/2026 02:30:00 PM, [address] [place] [address] [place], [address], Progress Notes * Esdras GONZALES GDOB: [birth year] (88 yo M)Acc No.[id number]:03/14/2024 Patient: Mary parminderEsdras :1935 A ge:88 Y S ex:Male Address:[address] [place] [address] [address], [place] [address] * true * Date: Generated for Baljinder medina/Kan/Job on: 11:03 AM EDT
--- OUTSIDE RECORDS SUMMARY | 2024-05-26 10:30 | XMS_ITS ---
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 Richie Hatfield III Primary Care Provider Allergies Allergen (clinical drug ingredient) Drug/Non Drug Allergy documented on EMR Reaction Allergy Type Onset Date Status Shellfish (FN) Shellfish-derived Products hives Drug Allergy Active Iodine Unknown Drug Allergy Active Results Component Value Reference Range Notes Lipid Panel Reviewed date:06/26/2024 12:36:47 PM Interpretation: Performing Lab:[facility], [address] [place] [id number] Notes/Report: Triglycerides 51 <150 mg/dL Desirable Triglyceride: less than 150 mg/dL Borderline High Triglyceride 150-199 mg/dL High Triglyceride: 200-499 mg/dL Very High Triglyceride: greater than or equal to 5OO mg/dL Cholesterol 152 <200 mg/dL Desirable Cholesterol: less than 200 mg/dL Borderline High Cholesterol: 200-239 mg/dL High Cholesterol: greater than 239 mg/dL LDL Cholesterol Calculated 84 <100 mg/dL Desirable LDL: less than 100 mg/dL Near Optimal/Above Optimal LDL: 110-129 mg/dL Borderline High LDL: 130-159 mg/dL High LDL: 160-189 mg/dL Very High LDL: greater than or equal to 190 mg/dL HDL Cholesterol 58 >40 mg/dL Desirable HDL: greater than 40 mg/dL Note: This HDL assay may give artificially low results in patients with liver disease. Hemoglobin A1c Reviewed date:06/26/2024 12:36:47 PM Interpretation: Performing Lab:[facility], [address] [place] [address], [place] [address] Notes/Report: Hemoglobin A1c % 5.9 <6.0 % Hemoglobin A1C Reference Range Adults: 4.8 - 6.0 % Non diabetic: < 6.0 % Goal: < 7.0 % Additional Action Suggested: > 8.0 % Note: Hemoglobin A1c results are invalid for patients with abnormal amounts of HbF. Blood transfusions may impact the HbA1c concentration in the patient sample. Estimated Average Glucose 123 eAG = Estimated average glucose which is %A1C expressed as average glucose, using the formula of the J8E-Eenizut Average Glucose study (ADAG), Diabetes Care, Vol.31,#8, 2007 REASON FOR VISIT Hypertension, Chronic low back pain, Diabetes, Benign prostatic hypertrophy, With urine retention, Obesity, History of pulmonary emboli, Anticoagulated, Right internal carotid occlusion, History of CVA Medications Medication SIG (Take, Route, Frequency, Duration) Notes Start Date End Date Status Finasteride 5 MG 1 tablet Orally Once a day 05/27/2024 Active Mupirocin 2 % 1 application Slag Production Worker ally Twice a day 11/29/2023 Active amLODIPine Besylate 10 MG 1 tablet Orall y Once a day Active metFORMIN HCl 500 MG TAKE 1 tabletBY MICKI TH with meals Orally Once a day 90 days Active Tamsulosin HCl 0.4 MG 1 capsule Orally T wice a day Active Atorvastatin Calcium 10 MG 1 tablet Oral ly Once a day Active Lisinopril 10 MG 1 tablet Orally Once a day Active Aspirin 81 81 MG 1 tablet Orally Once a day Active Social History Tobacco Use: Social History Observation Description Date Details (start date - stop date) Never Smoker NA - NA Sex Assigned At : Social History Observation Description Sex Assigned At Male Tobacco Use/Smoking Question Answer Notes Patient is a nonsmoker Additional Findings: Tobacco Non-User Aggressive non-smoker Vital Signs Temperature 97.5 degrees Fahrenheit 05/26/20 24 Blood pressure systolic 123 mm Hg 05/26/20 24 Blood pressure diastolic 71 mm Hg 024 Heart Rate 64 /min 05/26/2024 Height 70 in 05/26/2024 Weight 221 lbs 05/26/2024 BMI 31.71 kg/m2 05/26/2024 Encounters Encounter Location Date Provider Diagnosis Richie Hatfield III, MD [address] [place] [address] [address] [place] [address] 05/26/2024 Richie Hatfield Benign prostatic hyperplasia, presence of lower urinary tract symptoms unspecified, unspecified morphology N40.0 ; Type 2 diabetes mellitus without complications E11.9 ; Obesity E66.9 ; Essential hypertension I10 ; 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 He is on tamsulosin and finasteride and sees urologist regularly. No change in his regimen was made today. 05/26/2024 Type 2 diabetes mellitus without complications (ICD-10 - E11.9) His diabetes has been controlled. He is on a statin medication lisinopril and metformin. 05/26/2024 Obesity (ICD-10 - E66.9) He has lost 2 pounds. His body mass index is 31.7. He is diabetic. We had a discussion of nutrition today. We made a plan to lose weight through a diabetic diet restricted in calories at a rate of one half of a pound per week. 05/26/2024 Essential hypertension (ICD-10 - I10) His blood pressure is stable at 123/71. No change in his regimen was made today. 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 He did not request any additional medication. 05/26/2024 Hyperlipidemia, unspecified hyperlipidemia type (ICD-10 - E78.5) His lipids appear to be well controlled. I have recommended weight loss and a diet low in animal fat. 05/26/2024 Pulmonary emboli (ICD-10 - I26.99) He is no longer anticoagulated. He has had no signs or symptoms of DVT or embolism. 05/26/2024 Right internal carotid occlusion (ICD-10 - I65.21) This finding was on a recent CT angiogram of the neck in the context of a small stroke. He will continue on anticoagulation. Plan Of Treatment Medication Medication Name Sig Start Date Stop Date Notes Finasteride 5 MG 1 tablet Orally Once a day 05/27/2024 Mupirocin 2 % 1 application Slag Production Worker ally Twice a day 11/29/2023 amLODIPine Besylate 10 MG 1 tablet Orally Once a day metFORMIN HCl 500 MG TAKE 1 tabletBY MICKI with meals Orally Once a day 90 days Tamsulosin HCl 0.4 MG 1 capsule Orally Twice a day Atorvastatin Calcium 10 MG 1 tablet Orally Once a day Lisinopril 10 MG 1 tablet Orally Once a day Aspirin 81 81 MG 1 tablet Orally Once a day Pending Test Test Name Order Date PROFILE, FASTING (COMPREHENSIVE METABOLI C) 05/26/2024 CBC WITH AUTO DIFF 05/26/2024 Next Appt Details Follow Up: 5 M, October, Reas n: OV, Routine check-up Provider Name:Richie Hatfield , 06/12/2025 10:30:00 AM, [address] [place] [address] [address], [place], [address], Provider Name:Richie Hatfield , 03/13/2026 02:30:00 PM, [address] [place] [address] [address], [place], [address], Progress Notes * Esdras GONZALES GDOB: [birth year] (89 yo M)Acc No.[id number]:05/26/2024 Progress Notes Patient: Esdras ABERNATHY Provider: Antoni Hatfield MD :1935 A ge:89 Y S ex:Male Date:05/26/2024 Address:[address] [place] [address], [id number] Subjective: * Chief Complaints: * H ypertensionChronic low back painDiabetesBenign prostatic hypertrophy, With urine retentionObesityHistory of pulmonary emboliAnticoagulatedRight internal carotid occlusionHistory of CVA * HPI: C OVID-19 Screening: Questions H ave you [...] COVID-19 in the past? N o * : The 89-year-old male patient has been feeling well since his last visit. He has a history of diabetes, which he reports is under control. He has been experiencing frequent urination, waking up about three times a night. The doctor offered medication to help with this issue. The patient also reports no side effects from his current medications. He does not test his blood sugars at home. He works four days a week, 32 hours in total. He has lost some weight, reporting a weight of 221 lbs. He uses a cane for mobility and a walker for crossing pavements. He has some issues with his eyesight and uses a magnifying glass to read small text. He also has a small cyst, which the doctor advised to leave alone. Blood Sugar Level is 117. * ROS: G eneral/Constitutional: pain L umbar spine, otherwise only normal aches and pains.?Chills d enies. F atigue a dmits. F [...] been noted. G enitourinary: Frequent urination t hree times a night. M usculoskeletal: Muscle aches d enies. P ainful joints L umbar spine hips shoulders. S ciatica d enies. W eakness d enies. S kin: Itching d enies. R danna d enies. S kin lesion(s)?denies. N eurologic: Difficulty speaking d enies. D izziness d enies.?Headache d enies. L ow back pain t hat is chronic. P sychiatric: Depressed mood d enies. 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 * Medications: T akingFinasteride 5 MG Tablet 1 tablet Orally Once a day Aspirin 81 81 MG Tablet Delayed Release 1 tablet Orally Once a day Lisinopril 10 MG Tablet 1 tablet Orally Once a day Atorvastatin Calcium 10 MG Tablet 1 tablet Orally Once a day Tamsulosin HCl 0.4 MG Capsule 1 capsule Orally Twice a day metFORMIN HCl 500 MG Tablet TAKE 1 tabletBY MOUTH with meals Orally Once a day 90 days amLODIPine Besylate 10 MG Tablet 1 tablet Orally Once a day Mupirocin 2 % Ointment 1 application Externally Twice a day Medication List reviewed and reconciled with the patientTaking Finasteride 5 MG Tablet 1 tablet Orally Once a day Taking Aspirin 81 81 MG Tablet Delayed Release 1 tablet Orally Once a day Taking Lisinopril 10 MG Tablet 1 tablet Orally Once a day Taking Atorvastatin Calcium 10 MG Tablet 1 tablet Orally Once a day Taking Tamsulosin HCl 0.4 MG Capsule 1 capsule Orally Twice a day Taking metFORMIN HCl 500 MG Tablet TAKE 1 tabletBY MOUTH with meals Orally Once a day 90 days Taking amLODIPine Besylate 10 MG Tablet 1 tablet Orally Once a day Taking Mupirocin 2 % Ointment 1 application Externally Twice a day Medication List reviewed and reconciled with the patient * Allergies: S hellfish-derived Products: hivesIodineno[Allergies Verified] Objective: * Vitals: H t: 70, Wt:221, BMI:31.71, BP:123/71, HR:64, Temp:97.5, Wt-k.24. * Examination: G eneral Examination: GENERAL APPEARANCE: p leasant, well nourished, well developed, in no acute distress, calm and relaxed, obese, elderly man. HEAD: a traumatic, normocephalic. EYES: [...] sounds normal, no ascites, no organomegaly, no mass, centripital obesity. RECTAL EXAM: n ot examined. MUSCULOSKELETAL: e xtremities unremarkable, no clubbing, cyanosis or edema, Since healed surgical scar over her lumbar spine, decreased range of motion lumbar spine, generalized lower extremity weakness. PERIPHERAL PULSES: n ormal. NEUROLOGIC: a lert and oriented, cranial nerves 2-12 grossly intact, deep tendon reflexes 2+ symmetrical, motor strength normal upper extremities, sensory exam intact,, Legs weak, gait unsteady, ambulates using wheeled walker, able to ascend examining table without difficulty. PSYCH: a lert, oriented. Assessment: * Assessment: 1. T ype 2 diabetes mellitus without complications - E11.9 (Primary) N otes :His diabetes has been controlled. He is on a statin medication lisinopril and metformin. 2 . B enign prostatic hyperplasia, presence of lower urinary tract symptoms unspecified, unspecified morphology - N40.0 N otes :He has an enlarged prostate with a residual of about 300 mL. He is on tamsulosin and finasteride and sees urologist regularly. No change in his regimen was made today. 3 . O besity - E66.9 N otes :He has lost 2 pounds. His body mass index is 31.7. He is diabetic. We had a discussion of nutrition today. We made a plan to lose weight through a diabetic diet restricted in calories at a rate of one half of a pound per week. 4 . E ssential hypertension - I10 N otes :His blood pressure is stable at 123/71. No change in his regimen was made today. 5 . L umbar disc herniation with myelopathy - M51.06 N otes :His back pain is present but mild and he has adapted to it. He did not request any additional medication. 6 . H yperlipidemia, unspecified hyperlipidemia type - E78.5 N otes :His lipids appear to be well controlled. I have recommended weight loss and a diet low in animal fat. 7 . P ulmonary emboli - I26.99 N otes :He is no longer anticoagulated. He has had no signs or symptoms of DVT or embolism. 8 . R ight internal carotid occlusion - I65.21 N otes :This finding was on a recent CT angiogram of the neck in the context of a small stroke. He will continue on anticoagulation. Plan: * Treatment: 2. B enign prostatic hyperplasia, presence of lower urinary tract symptoms unspecified, unspecified morphology Continue Finasteride Tablet, 5 MG, 1 tablet, Orally, Once a day. L AB: PROFILE, FASTING (COMPREHENSIVE METABOLIC) L AB: CBC WITH AUTO DIFF L AB: Lipid Panel L AB: Hemoglobin A1c 3. O besity L AB: PROFILE, FASTING (COMPREHENSIVE METABOLIC) L AB: CBC WITH AUTO DIFF L AB: Lipid Panel L AB: Hemoglobin A1c 4. O thers [...] Goals B lood Sugars less than < 115.? B arriers n o barriers. S elf-Managment Goals W ork on weight loss, with a goal of losing 1 lb per week. * Follow Up: , October (Reason: OV, Routine check-up) * Images: * Sign off status: Completed true * Provider: Antoni Hatfield MD Date: Generated for Baljinder ng/Kan/eTransmitting on: 11:05 AM EDT History and Physical [...] developed, in no acute distress, calm and relaxed, obese, elderly man HEAD: atraumatic, normocep halic EYES: eomi, perrla, anicte joyce, conjugate EARS: normal NOSE: septum intact NECK/THYROID: no jugular venous di stention, no carotid bruit, thyroid normal HEART: no clicks, gallops, murmurs, or rubs, regular rhythm, S1, S2 normal, no s3, or vascular bruits LUNGS: clear to auscultatio n ABDOMEN: bowel sounds normal, no ascites, no organomegaly, no mass, centripital obesity NEUROLOGIC: alert and oriented, cranial nerves 2-12 grossly intact, deep tendon reflexes 2+ symmetrical, motor strength normal upper extremities, sensory exam intact,, Legs weak, gait unsteady, ambulates using wheeled walker, able to ascend examining table without difficulty SKIN: no suspicious lesion s, anicteric PERIPHERAL PULSES: normal BREASTS: no masses palpable b ilaterally MUSCULOSKELETAL: extremities unremark able, no clubbing, cyanosis or edema, Since healed surgical scar over her lumbar spine, decreased range of motion lumbar spine, generalized lower extremity weakness LYMPH NODES: no enlarged lymph no buffy,spleen normal RECTAL EXAM: not examined PSYCH: alert, oriented ORAL CAVITY: normal, unremarkable
--- OUTSIDE RECORDS SUMMARY | 2024-06-26 07:23 | XMS_ITS ---
Author Organization Richie Hatfield III, MD Address [address] [place] [address] Care Team Providers Care House Visitor Name Role Phone Dr. Richie Hatfield III Primary Care Provider Reason For Referral Reason Evaluate and Treat Left hip pain Diagnosis 1 Left hip pain (M25.5 52) Referral Organization Richie Hatfield III, MD Referring Provider First Name Richie Referring Provider Last Name Alysia Referring Provider Speciality Internal M edicine Referred Provider [facility], [facility] Referred Provider Specialty Orthopedic S urgery General Notes DDeyanira 06/26/2024 12:31:06 PM > Referral faxed with last progress note. Referral Priority Routine Referral Appointment Date 07/31/2024 REASON FOR VISIT Ortho Referral Social History Sex Assigned At : Social History Observation Description Sex Assigned At Male Encounters Encounter Location Date Provider Diagnosis Richie Hatfield III, MD [address] [place] [address] [place] [address] 06/26/2024 Richie Hatfield Plan Of Treatment Referrals Referral Date Details 06/26/2024 06/26/2024, Evaluate and Treat Left hip pain, [facility] Next Appt Details Provider Name:Richie Hatfield , 06/12/2025 10:30:00 AM, [address] [place] [address] [place], [address], Provider Name:Richie Munozrne , 03/13/2026 02:30:00 PM, [address] [place] [address] [place], [address], Progress Notes * Esdras GONZALES GDOB: [birth year] (89 yo M)Acc No.[id number]:06/26/2024 Patient: Esdras ABERNATHY :1935 A ge:89 Y S ex:Male Address:[address] [place] [address], [place] [address] Subjective: * Chief Complaints: * O rtho Referral * Medical History: * Surgical History: * Hospitalization/Major Diagno stic Procedure: * Medications: Objective: * Vitals: * Physical Examination: Assessment: Plan: * Treatment: * Procedure Codes: * true * Date: Generated for Joaoi adam/Kan/eTransmitting on: 11:04 AM EDT Consultation Request Notes Referral Date Referring Provider Referred Provider Not es 06/26/2024 Richie Hatfield [facility], [facility] Evaluate and Treat Left hip pain
--- OUTSIDE RECORDS SUMMARY | 2024-10-27 05:00 | XMS_ITS ---
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 Richie Hatfield III Primary Care Provider [phone] Allergies Allergen (clinical drug ingredient) Drug/Non Drug Allergy documented on EMR Reaction Allergy Type Onset Date Status Shellfish (FN) Shellfish-derived Products hives Drug Allergy Active Iodine Unknown Drug Allergy Active REASON FOR VISIT Hypertension, right shoulder pain, Left hip pain, Diabetes, Lumbar radiculopathy, History of pulmonary emboli, Obesity, History of stroke, Anticoagulated, Occlusion right internal carotid artery Medications Medication SIG (Take, Route, Frequency, Duration) Notes Start Date End Date Status Lisinopril 10 MG 1 tablet Orally Once a day Active Aspirin 81 81 MG 1 tablet Orally Once a day Active Mupirocin 2 % 1 application Job Molder ally Twice a day 11/29/2023 Active Atorvastatin Calcium 10 MG 1 tablet Oral ly Once a day Active Finasteride 5 MG 1 tablet Orally Once a day 05/27/2024 Active amLODIPine Besylate 10 mg TAKE 1 tablet Orally Once a day 90 days Active Tamsulosin HCl 0.4 mg TAKE 1 capsule Ora lly Twice a day 90 days Active metFORMIN HCl 500 mg TAKE 1 tabletBY with meals Orally Once a day 90 days Active Social History Tobacco Use: Social History Observation Description Date Details (start date - stop date) Never Smoker NA - NA Sex Assigned At : Social History Observation Description Sex Assigned At Male Tobacco Use/Smoking Question Answer Notes Patient is a nonsmoker Additional Findings: Tobacco Non-User Aggressive non-smoker Vital Signs Temperature 98.4 degrees Fahrenheit 10/28/19 25 Blood pressure systolic 119 mm Hg 10/28/19 25 Blood pressure diastolic 85 mm Hg 025 Heart Rate 86 /min 10/27/2024 Height 70 in 10/27/2024 Weight 214 lbs 10/27/2024 BMI 30.7 kg/m2 10/27/2024 Encounters Encounter Location Date Provider Diagnosis Richie Hatfield III, MD [address] [place] [address] [address], [place] [id number] 10/27/2024 Richie Hatfield Benign prostatic hyperplasia, presence of lower urinary tract symptoms unspecified, unspecified morphology N40.0 ; Type 2 diabetes mellitus without complications E11.9 ; Obesity E66.9 ; Hyperlipidemia type II E78.01 ; Essential hypertension I10 ; 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 He is on tamsulosin and finasteride and sees urologist regularly. No change in his regimen was made today. 10/27/2024 Type 2 diabetes mellitus without complications (ICD-10 - E11.9) He has beeen compliant with all of his medications. His hemoglobin A1c is 5.9 and his fasting glucose is 116. No change in his regimen as necessary today. I recommend a gradual weight loss and a healthy diet. 10/27/2024 Obesity (ICD-10 - E66.9) His body mass index is 30.7. He weighs 214 pounds. We discussed diet and nutrition today. We made a plan to lose weight at a rate of one half of a pound per week. 10/27/2024 Hyperlipidemia type II (ICD-10 - E78.01) The current fasting lipid profile shows his total cholesterol is 150 well within rangge. No change in his regimen was made. I recommended aggressive weight loss and a healthy low cholesterol diabetic diet. 10/27/2024 Essential hypertension (ICD-10 - I10) His blood pressure is stable No change in his regimen was made today. 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 He did not request any additional medication. 10/27/2024 Pulmonary emboli (ICD-10 - I26.99) He is no longer anticoagulated. He has had no signs or symptoms of DVT or embolism.He was continued on his regimen without change. 10/27/2024 Right internal carotid occlusion (ICD-10 - I65.21) This finding was on a recent CT angiogram of the neck in the context of a small stroke. He will continue on anticoagulation. 10/27/2024 Anticoagulated (ICD-10 - Z79.01) He is taking warfarin at his INR is 2.2. The Lovenox was discontinued today. He was referred to the anticoagulation clinic at [facility]. His INR will be Between 2.0 and 3.0. Plan Of Treatment Medication Medication Name Sig Start Date Stop Date Notes Lisinopril 10 MG 1 tablet Orally Once a day Aspirin 81 81 MG 1 tablet Orally Once a day Mupirocin 2 % 1 application Job Molder ally Twice a day 11/29/2023 Atorvastatin Calcium 10 MG 1 tablet Orally Once a day Finasteride 5 MG 1 tablet Orally Once a day 05/27/2024 amLODIPine Besylate 10 mg TAKE 1 tablet Orally Once a day 90 days Tamsulosin HCl 0.4 mg TAKE 1 capsule Ora lly Twice a day 90 days metFORMIN HCl 500 mg TAKE 1 tabletBY MICKI with meals Orally Once a day 90 days Pending Test Test Name Order Date PROFILE, FASTING (COMPREHENSIVE METABOLI C) 10/27/2024 CBC w DIFF 10/27/2024 Lipid Panel 10/27/2024 Microalbumin, Random 10/27/2024 Hemoglobin A1c 10/27/2024 Next Appt Details Follow Up: As Scheduled, Dana son: Annual Exam Provider Name:Richie Hatfield , 06/12/2025 10:30:00 AM, [address] [place] [address] DR, [address], [place], [id number], Provider Name:Richie Amezquitane , 03/13/2026 02:30:00 PM, [address] [place] [address] [address] [place], [phone], Progress Notes * Esdras GONZALES GDOB: [birth year] (89 yo M)Acc No.[id number]:10/27/2024 Progress Notes Patient: Esdras ABERNATHY Provider: Antoni Hatfield MD :[id number] A ge:89 Y S ex:Male Date:10/27/2024 Address:[address] [place] [address], [place]-[id number] Subjective: * Chief Complaints: * H ypertensionRight shoulder painLeft hip painDiabetesLumbar radiculopathyHistory of pulmonary emboliObesityHistory of strokeAnticoagulatedOcclusion right internal carotid artery * HPI: C OVID-19 Screening: Questions H ave you had any new onset fever, chills, cough, congestion, sore throat, shortness of breath, muscle aches? N o * : The patient, an 89-year-old male, reported feeling tired and has recently been laid off from his job. He has been experiencing weight loss, with a decrease of 7 lbs noted. He has been managing his diabetes well, with a fasting blood sugar of 116 and a hemoglobin A1C of 5.9. He also has joint disease and arthritis, which causes inflammation and discomfort. He receives monthly shots in his eyes for an unspecified condition. The patient's lifestyle has been sedentary, with most of his time spent at home watching television and caring for his dog. Blood Sugar Level is 116. * ROS: G eneral/Constitutional: pain R ight shoulder, left hip, low back. C hills d enies. F atigue a dmits. F ever d enies. E NT: Decreased hearing m ild. R espiratory: Cough d enies. C ardiovascular: Chest pain with exertion d enies. D yspnea on exertion?denies. S hortness of breath w ith exertion. G astrointestinal: Constipation d enies. D ecreased appetite d enies.?Diarrhea d enies. H eartburn d enies. N ausea d enies. R ectal bleeding?denies. V omiting d enies. H ematology: bruising d enies. p etechiae d enies. S wollen glands n one have been noted. G enitourinary: Frequent urination t wice a night. M usculoskeletal: Muscle aches d enies. P ainful joints d enies. S ciatica d enies. W eakness t hat is generalized. S kin: Itching d enies. R danna d enies. S kin lesion(s)?denies. N eurologic: Difficulty speaking d enies. D izziness d enies.?Headache d enies. L ow back pain t hat is chronic. P sychiatric: Depressed mood w hich is mild. * Medical History: * Surgical History: R ight L3-L4 extraforaminal microdiscectomy [id number] surgery 09/2016No history * Hospitalization/Major Diagno stic [...] Ointment 1 application Externally Twice a day Finasteride 5 MG Tablet 1 tablet Orally Once a day Tamsulosin HCl 0.4 mg Capsule TAKE 1 capsule Orally Twice a day 90 days metFORMIN HCl 500 mg Tablet TAKE 1 tabletBY MOUTH with meals Orally Once a day 90 days amLODIPine Besylate 10 mg Tablet TAKE 1 tablet Orally Once a day 90 days Medication List reviewed and reconciled with the patientTaking Aspirin 81 81 MG Tablet Delayed Release 1 tablet Orally Once a day Taking Lisinopril 10 MG Tablet 1 tablet Orally Once a day Taking Atorvastatin Calcium 10 MG Tablet 1 tablet Orally Once a day Taking Mupirocin 2 % Ointment 1 application Externally Twice a day Taking Finasteride 5 MG Tablet 1 tablet Orally Once a day Taking Tamsulosin HCl 0.4 mg Capsule TAKE 1 capsule Orally Twice a day 90 days Taking metFORMIN HCl 500 mg Tablet TAKE 1 tabletBY MOUTH with meals Orally Once a day 90 days Taking amLODIPine Besylate 10 mg Tablet TAKE 1 tablet Orally Once a day 90 days Medication List reviewed and reconciled with the patient * Allergies: S hellfish-derived Products: hivesIodineno[Allergies Verified] Objective: * Vitals: H t: 70, Wt:214, BMI:30.7, BP:119/85, HR:86, Temp:98.4, Wt-k.07. * P ast Orders: Lab:Erica Lara. Jamarcus l Fast * Collection Date 10/13/2024 05/26/2024 03/03/2024 Collection Time 09:26 AM 07:16 AM 07:20 AM Order Date 10/13/2024 05/26/2024 03/03/2024 Sodium 139 (Ref Range: 135-145 mmol/L) 140 (Ref Range: 135-145 mmol/L) 139 (Ref Range: 135-145 mmol/L) Bilirubin Total 0.9 (Ref Range: 0.0-1.0 mg/dL) 0.9 (Ref Range: 0.0-1.0 mg/dL) 0.8 (Ref Range: 0.0-1.0 mg/dL) Aspartate Amino Transferase 18 (Ref Range: 5-37 U/L) 13 (Ref Range: 5-37 U/L) 15 (Ref Range: 5-37 U/L) Alanine Aminotransferase 13 (Ref Range: 0-40 U/L) 13 (Ref Range: 0-40 U/L) 12 (Ref Range: 0-40 U/L) Total Protein 7.4 (Ref Range: 6.5-8.0 g/dL) 7.1 (Ref Range: 6.5-8.0 g/dL) 6.9 (Ref Range: 6.5-8.0 g/dL) Albumin Level 3.9 (Ref Range: 3.5-5.0 g/dL) 3.9 (Ref Range: 3.5-5.0 g/dL) 4.0 (Ref Range: 3.5-5.0 g/dL) Alkaline Phosphatase 93 (Ref Range: 39-117 U/L) 93 (Ref Range: 39-117 U/L) 86 (Ref Range: 39-117 U/L) Potassium 4.2 (Ref Range: 3.3-5.1 mmol/L) 4.6 (Ref Range: 3.3-5.1 mmol/L) 4.3 (Ref Range: 3.3-5.1 mmol/L) Chloride 112 H (Ref Range: 96-108 mmol/L) 108 (Ref Range: 96-108 mmol/L) 109 H (Ref Range: 96-108 mmol/L) Carbon Dioxide 19 L (Ref Range: 22-29 mmol/L) 23 (Ref Range: 22-29 mmol/L) 22 (Ref Range: 22-29 mmol/L) Anion Gap 12 (Ref Range: 12-20) 14 (Ref Range: 12-20) 12 (Ref Range: 12-20) Blood Urea Nitrogen 29 H (Ref Range: 9-16 mg/dL) 23 H (Ref Range: 9-16 mg/dL) 27 H (Ref Range: 9-16 mg/dL) Creatinine 0.95 (Ref Range: 0.5-1.4 mg/dL) 1.06 (Ref Range: 0.5-1.4 mg/dL) 1.28 (Ref Range: 0.5-1.4 mg/dL) Estimated Glomerular Filt Rate > 60 > 60 53 Glucose Fasting 116 H (Ref Range: 60-99 mg/dL) 117 H (Ref Range: 60-99 mg/dL) 120 H (Ref Range: 60-99 mg/dL) Calcium 9.1 (Ref Range: 8.4-10.2 mg/dL) 9.3 (Ref Range: 8.4-10.2 mg/dL) 9.0 (Ref Range: 8.4-10.2 mg/dL) * Lab:Lipid Panel * Collection Date 10/13/2024 05/26/2024 03/03/2024 Collection Time 09:26 AM 07:16 AM 07:20 AM Order Date 10/13/2024 05/26/2024 03/03/2024 Triglycerides 47 (Ref Range: <150 mg/dL) 51 (Ref Range: <150 mg/dL) 51 (Ref Range: <150 mg/dL) Cholesterol 150 (Ref Range: <200 mg/dL) 152 (Ref Range: <200 mg/dL) 142 (Ref Range: <200 mg/dL) LDL Cholesterol Calculated 80 (Ref Range: <100 mg/dL) 84 (Ref Range: <100 mg/dL) 80 (Ref Range: <100 mg/dL) HDL Cholesterol 61 (Ref Range: >40 mg/dL) 58 (Ref Range: >40 mg/dL) 52 (Ref Range: >40 mg/dL) Clinical Info: Please fast for 12-14 hours prior to having this labwork done. You may have black coffee or tea with no milk or sugar. May have water,Please have this testing 1 week prior to your next appointment,PLEASE FAX COMPLETED RESULTS TO [phone] * Lab:Hemoglobin A1c * Collection Date 10/13/2024 05/26/2024 03/03/2024 Collection Time 09:26 AM 07:16 AM 07:20 AM Order Date 10/13/2024 05/26/2024 03/03/2024 Hemoglobin A1c % 5.9 (Ref Range: <6.0 %) 5.9 (Ref Range: <6.0 %) 6.0 (Ref Range: <6.0 %) Estimated Average Glucose 123 (Ref Range: mg/dL) 123 (Ref Range: mg/dL) 126 (Ref Range: mg/dL) Clinical Info: Please fast for 12-14 hours prior to having this labwork done. You may have black coffee or tea with no milk or sugar. May have water,Please have this testing 1 week prior to your next appointment,PLEASE FAX COMPLETED RESULTS TO [phone] * Lab:Complete Blood Count Aut o Diff * Collection Date 10/13/2024 05/26/2024 07/17/2023 Collection Time 09:26 AM 07:16 AM 07:27 AM Order Date 10/13/2024 05/26/2024 07/17/2023 White Blood Count 6.4 (Ref Range: 4.8-10.8 X10*3/uL) 7.3 (Ref Range: 4.8-10.8 X10*3/uL) 8.4 (Ref Range: 4.8-10.8 X10*3/uL) Red Blood Count 4.55 L (Ref Range: 4.60-5.80 X10*6/uL) 4.51 L (Ref Range: 4.60-5.80 X10*6/uL) 4.54 L (Ref Range: 4.60-5.80 X10*6/uL) Hemoglobin 14.3 (Ref Range: 14.0-18.0 g/dl) 14.3 (Ref Range: 14.0-18.0 g/dl) 13.8 L (Ref Range: 14.0-18.0 g/dl) Hematocrit 42.7 (Ref Range: 42.0-52.0 %) 43.3 (Ref Range: 42.0-52.0 %) 42.7 (Ref Range: 42.0-52.0 %) Mean Corpuscular Volume 93.8 (Ref Range: 80.0-98.0 fL) 96.0 (Ref Range: 80.0-98.0 fL) 94.1 (Ref Range: 80.0-98.0 fL) Mean Corpuscular Hemoglobin 31.4 (Ref Range: 27.0-33.0 pg) 31.7 (Ref Range: 27.0-33.0 pg) 30.4 (Ref Range: 27.0-33.0 pg) Mean Corpuscular HGB Conc 33.5 (Ref Range: 31.0-36.0 g/dl) 33.0 (Ref Range: 31.0-36.0 g/dl) 32.3 (Ref Range: 31.0-36.0 g/dl) Red Cell Distribution Width 13.2 (Ref Range: 11.0-16.0 %) 13.5 (Ref Range: 11.0-16.0 %) 14.4 (Ref Range: 11.0-16.0 %) Platelet Count 269 (Ref Range: 160-400 X10*3/uL) 269 (Ref Range: 160-400 X10*3/uL) 213 (Ref Range: 160-400 X10*3/uL) Mean Platelet Volume 10.0 (Ref Range: 9.4-12.4 fL) 9.5 (Ref Range: 9.4-12.4 fL) 10.8 (Ref Range: 9.4-12.4 fL) Neutrophils Percent Auto 68.6 (Ref Range: 45-73 %) 67.6 (Ref Range: 45-73 %) 67.2 (Ref Range: 45-73 %) Imm Gran Pct Auto 0.3 (Ref Range: 0.0-0.4 %) 0.1 (Ref Range: 0.0-0.4 %) 0.2 (Ref Range: 0.0-0.4 %) Lymphocytes Percent Auto 17.6 L (Ref Range: 20-40 %) 17.9 L (Ref Range: 20-40 %) 16.6 L (Ref Range: 20-40 %) Monocytes Percent Auto 9.6 (Ref Range: 2-11 %) 10.1 (Ref Range: 2-11 %) 10.3 (Ref Range: 2-11 %) Eosinophils Percent Auto 3.0 (Ref Range: 0-4 %) 3.3 (Ref Range: 0-4 %) 4.7 H (Ref Range: 0-4 %) Basophils Percent Auto 0.9 (Ref Range: 0-2 %) 1.0 (Ref Range: 0-2 %) 1.0 (Ref Range: 0-2 %) NRBC Pct Auto 0.0 (Ref Range: 0.0-0.2 /100WBC) 0.0 (Ref Range: 0.0-0.2 /100WBC) 0.0 (Ref Range: 0.0-0.2 /100WBC) Neutrophils Absolute Auto 4.4 (Ref Range: 2.0-8.3 x10*3/uL) 4.9 (Ref Range: 2.0-8.3 x10*3/uL) 5.6 (Ref Range: 2.0-8.3 x10*3/uL) Imm Gran Abs Auto 0.02 (Ref Range: 0.00-0.03 X10*3/uL) 0.01 (Ref Range: 0.00-0.03 X10*3/uL) 0.02 (Ref Range: 0.00-0.03 X10*3/uL) Lymphocytes Absolute Auto 1.1 L (Ref Range: 1.2-4.9 X10*3/uL) 1.3 (Ref Range: 1.2-4.9 X10*3/uL) 1.4 (Ref Range: 1.2-4.9 X10*3/uL) Monocytes Absolute Auto 0.6 (Ref Range: 0.1-1.2 X10*3/uL) 0.7 (Ref Range: 0.1-1.2 X10*3/uL) 0.9 (Ref Range: 0.1-1.2 X10*3/uL) Eosinophils Absolute Auto 0.2 (Ref Range: 0.0-0.4 X10*3/uL) 0.2 (Ref Range: 0.0-0.4 X10*3/uL) 0.4 (Ref Range: 0.0-0.4 X10*3/uL) Basophils Absolute Auto 0.1 (Ref Range: 0.0-0.2 X10*3/uL) 0.1 (Ref Range: 0.0-0.2 X10*3/uL) 0.1 (Ref Range: 0.0-0.2 X10*3/uL) NRBC Abs Auto 0.000 (Ref Range: 0.0-0.012 X10*3/uL) 0.000 (Ref Range: 0.0-0.012 X10*3/uL) 0.000 (Ref Range: 0.0-0.012 X10*3/uL) ???Imaging:XR pelvis 1-2V (Order Date - 07/31/2024) (Performed Date - 07/31/2024) * Examination: G eneral Examination: GENERAL APPEARANCE: [...] xtremities unremarkable, no clubbing, cyanosis or edema, He ambulates with a walker gait unsteady, Healed scar over lumbar spine, gait wide-based. PERIPHERAL PULSES: n ormal. NEUROLOGIC: a lert and oriented, cranial nerves 2-12 grossly intact, deep tendon reflexes 2+ symmetrical, motor strength normal upper and lower extremities, sensory exam intact, Generalized muscle weakness, walks with a walker, gait is slow and unsteady. PSYCH: a lert, oriented, cognitive function intact, thought process logical, goal directed, speech clear, good eye contact, cooperative with exam. ? Assessment: * Assessment: 1. T ype 2 diabetes mellitus without complications - E11.9 (Primary) N otes :He has beeen compliant with all of his medications. His hemoglobin A1c is 5.9 and his fasting glucose is 116. No change in his regimen as necessary today. I recommend a gradual weight loss and a healthy diet. 2 . B enign prostatic hyperplasia, presence of lower urinary tract symptoms unspecified, unspecified morphology - N40.0 N otes :He has an enlarged prostate with a residual of about 300 mL. He is on tamsulosin and finasteride and sees urologist regularly. No change in his regimen was made today. 3 . O besity - E66.9 N otes :His body mass index is 30.7. He weighs 214 pounds. We discussed diet and nutrition today. We made a plan to lose weight at a rate of one half of a pound per week. 4 . H yperlipidemia type II - E78.01 N otes :The current fasting lipid profile shows his total cholesterol is 150 well within rangge. No change in his regimen was made. I recommended aggressive weight loss and a healthy low cholesterol diabetic diet. 5 . E ssential hypertension - I10 N otes :His blood pressure is stable No change in his regimen was made today. 6 . L umbar disc herniation with myelopathy - M51.06 N otes :His back pain is present but mild and he has adapted to it. He did not request any additional medication. 7 . P ulmonary emboli - I26.99 N otes :He is no longer anticoagulated. He has had no signs or symptoms of DVT or embolism.He was continued on his regimen without change. 8 . R ight internal carotid occlusion - I65.21 N otes :This finding was on a recent CT angiogram of the neck in the context of a small stroke. He will continue on anticoagulation. 9 . A nticoagulated - Z79.01 N otes :He is taking warfarin at his INR is 2.2. The Lovenox was discontinued today. He was referred to the anticoagulation clinic at [facility]. His INR will be Between 2.0 and 3.0. Plan: * Treatment: 2. B enign prostatic hyperplasia, presence of lower urinary tract symptoms unspecified, unspecified morphology Continue Finasteride Tablet, 5 MG, 1 tablet, Orally, Once a day. 3. O besity L AB: PROFILE, FASTING (COMPREHENSIVE METABOLIC) L AB: CBC w DIFF L AB: Lipid Panel L AB: Microalbumin, Random L AB: Hemoglobin A1c 4. H yperlipidemia type II L AB: PROFILE, FASTING (COMPREHENSIVE METABOLIC) L AB: CBC w DIFF L AB: Lipid Panel L AB: Microalbumin, Random L AB: Hemoglobin A1c 5. O thers Continue amLODIPine Besylate Tablet, 10 mg, TAKE 1 tablet Orally Once a day 90 days; C ontinue metFORMIN HCl Tablet, 500 mg, TAKE 1 tabletBY MOUTH with meals Orally Once a day 90 days; C ontinue Tamsulosin HCl Capsule, 0.4 mg, TAKE 1 capsule Orally Twice a day 90 days; C ontinue Aspirin 81 Tablet Delayed Release, 81 MG, 1 tablet, Orally, Once a day; C ontinue Lisinopril Tablet, 10 MG, 1 tablet, Orally, Once a day; C ontinue Atorvastatin Calcium Tablet, 10 MG, 1 tablet, Orally, Once a day; C ontinue Mupirocin Ointment, 2 %, 1 application, Externally, Twice a day. ? * Procedure Codes: * Preventive Medicine: Counseling: [...] 1 lb per week. * Follow Up: A s Scheduled (Reason: Annual Exam) * Images: * Sign off status: Completed true * Provider: Antoni Hatfield MD Date: 0 10/27/2024 Generated for Baljinder medina/Kan/eTransmitting on: 1 11:04 AM EDT History and Physical Notes * HPI (History of Present Illness) Category Sub-Category Detail Notes COVID-19 Screening Questions Have you had any new onset fever, chills, cough, congestion, sore throat, shortness of breath, muscle aches?: No Examination Category Sub-Category Detail Notes General [...] normal upper and lower extremities, sensory exam intact, Generalized muscle weakness, walks with a walker, gait is slow and unsteady SKIN: no suspicious lesion s, anicteric PERIPHERAL PULSES: normal BREASTS: no masses palpable b ilaterally MUSCULOSKELETAL: extremities unremark able, no clubbing, cyanosis or edema, He ambulates with a walker gait unsteady, Healed scar over lumbar spine, gait wide-based LYMPH NODES: no enlarged lymph no buffy,spleen normal RECTAL EXAM: not examined PSYCH: alert, oriented, cog nitive function intact, thought process logical, goal directed, speech clear, good eye contact, cooperative with exam ORAL CAVITY: normal, unremarkable
--- OUTSIDE RECORDS SUMMARY | 2025-03-12 10:00 | XMS_ITS ---
Author Organization Richie Hatfield III, MD Address [address] [place] [address] DR BERNAL Christi [place] [address] Care Team Providers Care Toll Service Observer Name Role Phone Dr. Richie Hatfield III Primary Care Provider Allergies Allergen (clinical drug ingredient) Drug/Non Drug Allergy documented on EMR Reaction Allergy Type Onset Date Status Shellfish (FN) Shellfish-derived Products hives Drug Allergy Active Iodine Unknown Drug Allergy Active REASON FOR VISIT Annual Exam, Due for Diabetic Eye Exam Medications Medication SIG (Take, Route, Frequency, Duration) Notes Start Date End Date Status Mupirocin 2 % 1 application Hydraulic Miner ally Twice a day 11/29/2023 Active Atorvastatin Calcium 10 MG 1 tablet Oral ly Once a day Active Finasteride 5 MG 1 tablet Orally Once a day 05/27/2024 Active amLODIPine Besylate 10 mg TAKE 1 tablet Orally Once a day 90 days Active metFORMIN HCl 500 mg TAKE 1 tabletBY MICKI TH with meals Orally Once a day 90 days Active Tamsulosin HCl 0.4 mg TAKE 1 capsule Ora lly Twice a day 90 days Active Lisinopril 10 MG 1 tablet Orally Once a day Active Aspirin 81 81 MG 1 tablet Orally Once a day Active Social History Tobacco Use: Social History Observation Description Date Details (start date - stop date) Never Smoker NA - NA Sex Assigned At : Social History Observation Description Sex Assigned At Male Tobacco Control (Standard) Question Answer Notes Tobacco use: Nonsmoker Additional Findings: Tobacco non-user Aggressive nonsmoker AUDIT-C (Standard) Question Answer Notes Did you have a drink contain ing alcohol in the past year? Yes How often did you have six o r more drinks on one occasion in the past year? 2 to 4 times a month (2 points) How many drinks did you have on a typical day when you were drinking in the past year? 1 or 2 drinks (0 point) How often did you have a dri nk containing alcohol in the past year? Never (0 point) Points 2 Interpretation Negative Vital Signs Temperature 98.8 degrees Fahrenheit 03/12/20 25 Blood pressure systolic 129 mm Hg 03/12/20 25 Blood pressure diastolic 64 mm Hg 025 Heart Rate 80 /min 03/12/2025 Height 70 in 03/12/2025 Weight 218 lbs 03/12/2025 BMI 31.28 kg/m2 03/12/2025 Encounters Encounter Location Date Provider Diagnosis Richie Hatfield III, MD [address] [place] [address] [place] [address] 03/12/2025 Richie Hatfield Benign prostatic hyperplasia, presence of lower urinary tract symptoms unspecified, unspecified morphology N40.0 ; Type 2 diabetes mellitus without complications E11.9 ; Obesity E66.9 ; Essential hypertension I10 ; 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 He is on tamsulosin and finasteride and sees urologist regularly. No change in his regimen was made today. 03/12/2025 Type 2 diabetes mellitus without complications (ICD-10 - E11.9) His diabetes is well controlled with a hemoglobin A1c of 5.9. No change in his regimen was made today. I recommended he stabilize his weight and prevent further gains. 03/12/2025 Obesity (ICD-10 - E66.9) We discussed his diet and nutrition today. We reviewed calorie restriction and recreational eating. We made a plan to lose weight at a rate of one half of a pound per week 03/12/2025 Essential hypertension (ICD-10 - I10) His blood pressure is stable No change in his regimen was made today. 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 He did not request any additional medication. 03/12/2025 Pulmonary emboli (ICD-10 - I26.99) He is no longer anticoagulated. He has had no signs or symptoms of DVT or embolism.He was continued on his regimen without change. 03/12/2025 Hyperlipidemia type II (ICD-10 - E78.01) The current fasting lipid profile shows his total cholesterol is well within rangge. No change in his regimen was made. I recommended aggressive weight loss and a healthy low cholesterol diabetic diet. 03/12/2025 Anticoagulated (ICD-10 - Z79.01) He is taking warfarin at his INR is 2.2. The Lovenox was discontinued today. He was referred to the anticoagulation clinic at [facility]. His INR will be Between 2.0 and 3.0. Plan Of Treatment Medication Medication Name Sig Start Date Stop Date Notes Mupirocin 2 % 1 application Hydraulic Miner ally Twice a day 11/29/2023 Atorvastatin Calcium 10 MG 1 tablet Orally Once a day Finasteride 5 MG 1 tablet Orally Once a day 05/27/2024 amLODIPine Besylate 10 mg TAKE 1 tablet Orally Once a day 90 days metFORMIN HCl 500 mg TAKE 1 tabletBY MICKI TH with meals Orally Once a day 90 days Tamsulosin HCl 0.4 mg TAKE 1 capsule Ora lly Twice a day 90 days Lisinopril 10 MG 1 tablet Orally Once a day Aspirin 81 81 MG 1 tablet Orally Once a day Pending Test Test Name Order Date PROFILE, RANDOM (COMPREHENSIVE METABOLIC ) 03/12/2025 CBC w DIFF 03/12/2025 Hemoglobin A1c 03/12/2025 Next Appt Details Follow Up: 3 Months, Reason: OV Provider Name:Richie Hatfield , 06/12/2025 10:30:00 AM, [address] [place] [address] [address] [place], [place], [address], Provider Name:Richie Hatfield , 03/13/2026 02:30:00 PM, [address] [place] [address] [address], [place], [address], Progress Notes * Esdras GONZALES GDOB: [birth year] (89 yo M)Acc No.[id number]:03/12/2025 Progress Notes Patient: Esdras ABERNATHY Provider: Antoni Hatfield MD :[id number] A ge:89 Y S ex:Male Date:03/12/2025 Address:[address] [place] [address], [id number] Subjective: * Chief Complaints: * A nnual ExamDue for Diabetic Eye Exam * HPI: D epression Screening: He returns to the office for his annual physical examination. He is feeling healthy and well and has no new problems. He has been compliant with all his medications. He is now due for his annual diabetic application spec visit. His back is less painful and tolerable. He says he is sleeping fairly well. He gets up to urinate 2 or 3 times a night. He is up-to-date with his visits to urology. He is taking both tamsulosin and finasteride. He is going to use the [employer] for as much of his health care as he can instead of buying a Medicare supplement. PHQ-9 L ittle interest or pleasure in [...] shortness of breath, muscle aches? N o S QUIRINO Questions: SDOH Questions I n the past year have you been worried about losing your housing? N o I n the past year have you or any family members you live with been unable to get any of the following when it was really needed? Check all that apply: N one F all Risk Screening: Fall History H ave you had any falls with injury in the past year? N o H ave you had two or more falls in the past year? N o F all Risk Assessment: N o falls in the past year * ROS: G eneral/Constitutional: pain K nees and low back. C hills d enies. F [...] have been noted. G enitourinary: Frequent urination d enies. M usculoskeletal: Muscle aches d enies. P ainful joints L umbar spine, knees. S ciatica d enies. W eakness d enies. S kin: Itching d enies. R danna d enies. S kin lesion(s)?denies. N eurologic: Difficulty speaking d enies. D izziness d enies.?Headache d enies. L ow back pain d enies. P sychiatric: Depressed mood w hich is mild. * Medical History: * Surgical History: R ight L3-L4 extraforaminal microdiscectomy [id number] 09[facility]2016 * Hospitalization/Major Diagno stic Procedure: N o [...] Social History: T obacco Use: T obacco Control (Standard) T obacco use: N onsmoker A dditional Findings: Tobacco non-user A ggressive nonsmoker D rugs/Alcohol: D rugs H ave you used drugs other than those for medical reasons in the past 12 months? N o D rug/Alcohol: A WIL-C (Standard) D id you have a drink containing alcohol in the past year? Y es H ow often did you have six or more drinks on one occasion in the past year? 2 to 4 times a month (2 points) H ow many drinks did you have on a typical day when you were drinking in the past year? 1 or 2 drinks (0 point) H ow often did you have a drink containing alcohol in the past year? 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 * Medications: T akingamLODIPine Besylate 10 mg Tablet TAKE 1 tablet Orally Once a day 90 days metFORMIN HCl 500 mg Tablet TAKE 1 tabletBY MOUTH with meals Orally Once a day 90 days Tamsulosin HCl 0.4 mg Capsule TAKE 1 capsule Orally Twice a day 90 days Aspirin 81 81 MG Tablet Delayed Release 1 tablet Orally Once a day Lisinopril 10 MG Tablet 1 tablet Orally Once a day Atorvastatin Calcium 10 MG Tablet 1 tablet Orally Once a day Mupirocin 2 % Ointment 1 application Externally Twice a day Finasteride 5 MG Tablet 1 tablet Orally Once a day Medication List reviewed and reconciled with the patientTaking amLODIPine Besylate 10 mg Tablet TAKE 1 tablet Orally Once a day 90 days Taking metFORMIN HCl 500 mg Tablet TAKE 1 tabletBY MOUTH with meals Orally Once a day 90 days Taking Tamsulosin HCl 0.4 mg Capsule TAKE 1 capsule Orally Twice a day 90 days Taking Aspirin 81 81 MG Tablet Delayed Release 1 tablet Orally Once a day Taking Lisinopril 10 MG Tablet 1 tablet Orally Once a day Taking Atorvastatin Calcium 10 MG Tablet 1 tablet Orally Once a day Taking Mupirocin 2 % Ointment 1 application Externally Twice a day Taking Finasteride 5 MG Tablet 1 tablet Orally Once a day Medication List reviewed and reconciled with the patient * Allergies: S hellfish-derived Products: hivesIodineno[Allergies Verified] Objective: * Vitals: H t: 70, Wt:218, BMI:31.28, BP:129/64, HR:80, Temp:98.8, Wt-k.88. * P ast Orders: Lab:Hemoglobin A1c * Collection Date 03/05/2025 10/13/2024 05/26/2024 Collection Time 09:13 AM 09:26 AM 07:16 AM Order Date 03/05/2025 10/13/2024 05/26/2024 Hemoglobin A1c % 5.9 (Ref Range: <6.0 %) 5.9 (Ref Range: <6.0 %) 5.9 (Ref Range: <6.0 %) Estimated Average Glucose 123 (Ref Range: mg/dL) 123 (Ref Range: mg/dL) 123 (Ref Range: mg/dL) Clinical Info: Please fast f or 12-14 hours prior to having this labwork done. You may have black coffee or tea with no milk or sugar. May have water,Please have this testing 1 week prior to your next appointment,PLEASE FAX COMPLETED RESULTS TO [phone] * Lab:Complete Blood Count Aut o Diff * Collection Date 03/05/2025 10/13/2024 05/26/2024 Collection Time 09:13 AM 09:26 AM 07:16 AM Order Date 03/05/2025 10/13/2024 05/26/2024 White Blood Count 7.3 (Ref Range: 4.8-10.8 X10*3/uL) 6.4 (Ref Range: 4.8-10.8 X10*3/uL) 7.3 (Ref Range: 4.8-10.8 X10*3/uL) Red Blood Count 4.30 L (Ref Range: 4.60-5.80 X10*6/uL) 4.55 L (Ref Range: 4.60-5.80 X10*6/uL) 4.51 L (Ref Range: 4.60-5.80 X10*6/uL) Hemoglobin 13.4 L (Ref Range: 14.0-18.0 g/dl) 14.3 (Ref Range: 14.0-18.0 g/dl) 14.3 (Ref Range: 14.0-18.0 g/dl) Hematocrit 40.5 L (Ref Range: 42.0-52.0 %) 42.7 (Ref Range: 42.0-52.0 %) 43.3 (Ref Range: 42.0-52.0 %) Mean Corpuscular Volume 94.2 (Ref Range: 80.0-98.0 fL) 93.8 (Ref Range: 80.0-98.0 fL) 96.0 (Ref Range: 80.0-98.0 fL) Mean Corpuscular Hemoglobin 31.2 (Ref Range: 27.0-33.0 pg) 31.4 (Ref Range: 27.0-33.0 pg) 31.7 (Ref Range: 27.0-33.0 pg) Mean Corpuscular HGB Conc 33.1 (Ref Range: 31.0-36.0 g/dl) 33.5 (Ref Range: 31.0-36.0 g/dl) 33.0 (Ref Range: 31.0-36.0 g/dl) Red Cell Distribution Width 13.4 (Ref Range: 11.0-16.0 %) 13.2 (Ref Range: 11.0-16.0 %) 13.5 (Ref Range: 11.0-16.0 %) Platelet Count 258 (Ref Range: 160-400 X10*3/uL) 269 (Ref Range: 160-400 X10*3/uL) 269 (Ref Range: 160-400 X10*3/uL) Mean Platelet Volume 9.7 (Ref Range: 9.4-12.4 fL) 10.0 (Ref Range: 9.4-12.4 fL) 9.5 (Ref Range: 9.4-12.4 fL) Neutrophils Percent Auto 67.8 (Ref Range: 45-73 %) 68.6 (Ref Range: 45-73 %) 67.6 (Ref Range: 45-73 %) Imm Gran Pct Auto 0.3 (Ref Range: 0.0-0.4 %) 0.3 (Ref Range: 0.0-0.4 %) 0.1 (Ref Range: 0.0-0.4 %) Lymphocytes Percent Auto 16.3 L (Ref Range: 20-40 %) 17.6 L (Ref Range: 20-40 %) 17.9 L (Ref Range: 20-40 %) Monocytes Percent Auto 10.7 (Ref Range: 2-11 %) 9.6 (Ref Range: 2-11 %) 10.1 (Ref Range: 2-11 %) Eosinophils Percent Auto 3.8 (Ref Range: 0-4 %) 3.0 (Ref Range: 0-4 %) 3.3 (Ref Range: 0-4 %) Basophils Percent Auto 1.1 (Ref Range: 0-2 %) 0.9 (Ref Range: 0-2 %) 1.0 (Ref Range: 0-2 %) NRBC Pct Auto 0.0 (Ref Range: 0.0-0.2 /100WBC) 0.0 (Ref Range: 0.0-0.2 /100WBC) 0.0 (Ref Range: 0.0-0.2 /100WBC) Neutrophils Absolute Auto 5.0 (Ref Range: 2.0-8.3 x10*3/uL) 4.4 (Ref Range: 2.0-8.3 x10*3/uL) 4.9 (Ref Range: 2.0-8.3 x10*3/uL) Imm Gran Abs Auto 0.02 (Ref Range: 0.00-0.03 X10*3/uL) 0.02 (Ref Range: 0.00-0.03 X10*3/uL) 0.01 (Ref Range: 0.00-0.03 X10*3/uL) Lymphocytes Absolute Auto 1.2 (Ref Range: 1.2-4.9 X10*3/uL) 1.1 L (Ref Range: 1.2-4.9 X10*3/uL) 1.3 (Ref Range: 1.2-4.9 X10*3/uL) Monocytes Absolute Auto 0.8 (Ref Range: 0.1-1.2 X10*3/uL) 0.6 (Ref Range: 0.1-1.2 X10*3/uL) 0.7 (Ref Range: 0.1-1.2 X10*3/uL) Eosinophils Absolute Auto 0.3 (Ref Range: 0.0-0.4 X10*3/uL) 0.2 (Ref Range: 0.0-0.4 X10*3/uL) 0.2 (Ref Range: 0.0-0.4 X10*3/uL) Basophils Absolute Auto 0.1 (Ref Range: 0.0-0.2 X10*3/uL) 0.1 (Ref Range: 0.0-0.2 X10*3/uL) 0.1 (Ref Range: 0.0-0.2 X10*3/uL) NRBC Abs Auto 0.000 (Ref Range: 0.0-0.012 X10*3/uL) 0.000 (Ref Range: 0.0-0.012 X10*3/uL) 0.000 (Ref Range: 0.0-0.012 X10*3/uL) * Lab:Erica Man * Collection Date 03/05/2025 10/13/2024 05/26/2024 Collection Time 09:13 AM 09:26 AM 07:16 AM Order Date 03/05/2025 10/13/2024 05/26/2024 Sodium 139 (Ref Range: 135-145 mmol/L) 139 (Ref Range: 135-145 mmol/L) 140 (Ref Range: 135-145 mmol/L) Bilirubin Total 0.5 (Ref Range: 0.0-1.0 mg/dL) 0.9 (Ref Range: 0.0-1.0 mg/dL) 0.9 (Ref Range: 0.0-1.0 mg/dL) Aspartate Amino Transferase 18 (Ref Range: 5-37 U/L) 18 (Ref Range: 5-37 U/L) 13 (Ref Range: 5-37 U/L) Alanine Aminotransferase 12 (Ref Range: 0-40 U/L) 13 (Ref Range: 0-40 U/L) 13 (Ref Range: 0-40 U/L) Total Protein 7.0 (Ref Range: 6.5-8.0 g/dL) 7.4 (Ref Range: 6.5-8.0 g/dL) 7.1 (Ref Range: 6.5-8.0 g/dL) Albumin Level 3.9 (Ref Range: 3.5-5.0 g/dL) 3.9 (Ref Range: 3.5-5.0 g/dL) 3.9 (Ref Range: 3.5-5.0 g/dL) Alkaline Phosphatase 90 (Ref Range: 39-117 U/L) 93 (Ref Range: 39-117 U/L) 93 (Ref Range: 39-117 U/L) Potassium 4.3 (Ref Range: 3.3-5.1 mmol/L) 4.2 (Ref Range: 3.3-5.1 mmol/L) 4.6 (Ref Range: 3.3-5.1 mmol/L) Chloride 113 H (Ref Range: 96-108 mmol/L) 112 H (Ref Range: 96-108 mmol/L) 108 (Ref Range: 96-108 mmol/L) Carbon Dioxide 20 L (Ref Range: 22-29 mmol/L) 19 L (Ref Range: 22-29 mmol/L) 23 (Ref Range: 22-29 mmol/L) Anion Gap 10 L (Ref Range: 12-20) 12 (Ref Range: 12-20) 14 (Ref Range: 12-20) Blood Urea Nitrogen 30 H (Ref Range: 9-16 mg/dL) 29 H (Ref Range: 9-16 mg/dL) 23 H (Ref Range: 9-16 mg/dL) Creatinine 1.30 (Ref Range: 0.5-1.4 mg/dL) 0.95 (Ref Range: 0.5-1.4 mg/dL) 1.06 (Ref Range: 0.5-1.4 mg/dL) Estimated Glomerular Filt Rate 52 > 60 > 60 Glucose Fasting 108 H (Ref Range: 60-99 mg/dL) 116 H (Ref Range: 60-99 mg/dL) 117 H (Ref Range: 60-99 mg/dL) Calcium 8.7 (Ref Range: 8.4-10.2 mg/dL) 9.1 (Ref Range: 8.4-10.2 mg/dL) 9.3 (Ref Range: 8.4-10.2 mg/dL) * Lab:Lipid Panel * Collection Date 03/05/2025 10/13/2024 05/26/2024 Collection Time 09:13 AM 09:26 AM 07:16 AM Order Date 03/05/2025 10/13/2024 05/26/2024 Triglycerides 36 (Ref Range: <150 mg/dL) 47 (Ref Range: <150 mg/dL) 51 (Ref Range: <150 mg/dL) Cholesterol 139 (Ref Range: <200 mg/dL) 150 (Ref Range: <200 mg/dL) 152 (Ref Range: <200 mg/dL) LDL Cholesterol Calculated 76 (Ref Range: <100 mg/dL) 80 (Ref Range: <100 mg/dL) 84 (Ref Range: <100 mg/dL) HDL Cholesterol 56 (Ref Range: >40 mg/dL) 61 (Ref Range: >40 mg/dL) 58 (Ref Range: >40 mg/dL) Clinical Info: Please fast f or 12-14 hours prior to having this labwork done. You may have black coffee or tea with no milk or sugar. May have water,Please have this testing 1 week prior to your next appointment,PLEASE FAX COMPLETED RESULTS TO [phone] * Lab:Microalbumin, Random * Collection Date 03/05/2025 03/03/2024 07/17/2023 Collection Time 09:11 AM 07:17 AM 07:25 AM Order Date 03/05/2025 03/03/2024 07/17/2023 Creatinine Urine 39.03 (Ref Range: mg/dL) 57.11 (Ref Range: mg/dL) 68.06 (Ref Range: mg/dL) Microalbumin Urine 111.0 (Ref Range: mg/L) 137.0 (Ref Range: mg/L) 161.0 (Ref Range: mg/L) Microalbum Creatinine Ratio Ur 284.3 H (Ref Range: <30 ug/mg cr) 239.8 H (Ref Range: <30 ug/mg cr) 236.5 H (Ref Range: <30 ug/mg cr) * Examination: G eneral Examination: GENERAL APPEARANCE: [...] no clubbing, cyanosis or edema, Healed surgical incision over lumbar spine, crepitus knees,Uses seated walker. PERIPHERAL PULSES: n ormal. NEUROLOGIC: a lert and oriented, cranial nerves 2-12 grossly intact, deep tendon reflexes 2+ symmetrical, motor strength normal upper and lower extremities, sensory exam intact. PSYCH: a lert, oriented, cognitive function intact, cooperative with exam, good eye contact, speech clear, thought process logical, goal directed. ? Assessment: * Assessment: 1. T ype 2 diabetes mellitus without complications - E11.9 (Primary) N otes :His diabetes is well controlled with a hemoglobin A1c of 5.9. No change in his regimen was made today. I recommended he stabilize his weight and prevent further gains. 2 . B enign prostatic hyperplasia, presence of lower urinary tract symptoms unspecified, unspecified morphology - N40.0 N otes :He has an enlarged prostate with a residual of about 300 mL. He is on tamsulosin and finasteride and sees urologist regularly. No change in his regimen was made today. 3 . O besity - E66.9 N otes :We discussed his diet and nutrition today. We reviewed calorie restriction and recreational eating. We made a plan to lose weight at a rate of one half of a pound per week 4 . E ssential hypertension - I10 N otes :His blood pressure is stable No change in his regimen was made today. 5 . L umbar disc herniation with myelopathy - M51.06 N otes :His back pain is present but mild and he has adapted to it. He did not request any additional medication. 6 . P ulmonary emboli - I26.99 N otes :He is no longer anticoagulated. He has had no signs or symptoms of DVT or embolism.He was continued on his regimen without change. 7 . H yperlipidemia type II - E78.01 N otes :The current fasting lipid profile shows his total cholesterol is well within rangge. No change in his regimen was made. I recommended aggressive weight loss and a healthy low cholesterol diabetic diet. 8 . A nticoagulated - Z79.01 N otes :He is taking warfarin at his INR is 2.2. The Lovenox was discontinued today. He was referred to the anticoagulation clinic at [facility]. His INR will be Between 2.0 and 3.0. Plan: * Treatment: 2. B enign prostatic hyperplasia, presence of lower urinary tract symptoms unspecified, unspecified morphology Continue Finasteride Tablet, 5 MG, 1 tablet, Orally, Once a day. 3. O besity L AB: PROFILE, RANDOM (COMPREHENSIVE METABOLIC) L AB: CBC w DIFF L AB: Hemoglobin A1c 4. O thers Continue amLODIPine Besylate Tablet, 10 [...] 1 lb per week. * Follow Up: 3 Months (Reason: OV) * Images: * Sign off status: Completed true * Provider: Antoni Hatfield MD Date: 0 03/12/2025 Generated for [employer] adam/Kan/eTransmitting on: 1 11:04 AM EDT History and [...] way: Not at all Total Score: 0 Fall Risk Screening Fall History Have you had any falls with injury in the past year?: No Have you had two or more falls in the year?: No Fall Risk Assessment:: No falls in the year COVID-19 Screening Questions Have you had any new onset fever, chills, cough, congestion, sore throat, shortness of breath, muscle aches?: No SDOH Questions SDOH Questions In the past year have you been worried about losing your housing?: No In the past year have you or any family members you live with been unable to get any of the following when it was really needed? Check all that apply:: None Examination Category Sub-Category Detail Notes General Examination [...] no clubbing, cyanosis or edema, Healed surgical incision over lumbar spine, crepitus knees,Uses seated walker LYMPH NODES: no enlarged lymph no buffy,spleen normal RECTAL EXAM: not examined PSYCH: alert, oriented, cog nitive function intact, cooperative with exam, good eye contact, speech clear, thought process logical, goal directed ORAL CAVITY: normal, unremarkable
[2025-06-08 09:59] LABS: MANUAL DIFF FLAG NO
[2025-06-08 10:21] LABS: Hematocrit 42.4 % (42.0-52.0); Hemoglobin 13.9 g/dl (14.0-18.0); Imm Gran Abs Auto 0.03 X10*3/uL (0.00-0.03); Imm Gran Pct Auto 0.4 % (0.0-0.4); Lymphocytes Absolute Auto 1.4 X10*3/uL (1.2-4.9); Mean Corpuscular HGB Conc 32.8 g/dl (31.0-36.0); Mean Corpuscular Hemoglobin 31.4 pg (27.0-33.0); Mean Corpuscular Volume 95.9 fL (80.0-98.0); NRBC Abs Auto 0.000 X10*3/uL (0.0-0.012); NRBC Pct Auto 0.0 /100WBC (0.0-0.2); Platelet Count 268 X10*3/uL (160-400); Red Blood Count 4.42 X10*6/uL (4.60-5.80); White Blood Count 7.3 X10*3/uL (4.8-10.8)
--- OUTSIDE RECORDS SUMMARY | 2025-06-08 11:04 | XMS_ITS | Clinical Summary ---
Author Organization [facility] Address [address] [place] [address] Care Team Providers Care Insurance Inspector Name Role Phone Unavailable Primary Care Provider [...] Drug Screen 08/23/2024 Depression Annual Screen 08/23/2024 Dental Prophy 11/12/2024 11/11/2023, 04/24, 11/11/2022 Dental BW 11/17/2024 11/16/2023, 10/22, 04/22/2022 Dental Examination 11/17/2024 11/16/2023, 0 05/13/2023, 11/11/2022, Additional history exists [id number] (2024- season) 2025 05/03/2024, 08/18/2023, 12/02/2021, Additional history exists Imm-Influenza (#1) 2025 04/26/2024, 0 04/27/2023, 04/28/2022, Additional history exists Imm-DTaP/Tdap/Td (3 - Td or Tdap) 01/27/2032 022, 02/21/2012 Imm-Pneumococcal 50+ Completed 07/31/2015, 05/23/20 15 Procedures Procedure Name Priority Date/Time Associated Diagnosis Comments TIMEKEEPER REPORT 3:00 AM EDT BITEWINGS - FOUR RADIOGRAPHIC IMAGES Routine 11/16/2023 1:40 PM EDT Encounter for dental examination Caries of enamel (incipient) PERIODIC ORAL EVALUATION ESTABLISHED PATIENT Routine 11/16/2023 1:40 PM EDT Encounter for dental examination Full PROPHYLAXIS - ADULT Routine 024 3:00 PM EDT Encounter for dental examination from Last 3 Months or Most Recently Relevant to Health Maintenance Results * TIMEKEEPER REPORT (05/11/2025 3:00 AM EDT) 05/11/2025 3:00 AM EDT us Hollis Guzman MD SCAN PROCEDURES Final Result from Last 3 Months Insurance [employer] [facility] [place] [address]) Member Subscriber Plan / Payer ( fective 2020-Present) Name:Esdras Gonzales Relation to Subscriber:Self Name:Esdras Gonzales Payer ID:[id number] Group ID:Not on file Type:Indemnity Address: [address] [place] [id number]
--- OUTSIDE RECORDS SUMMARY | 2025-06-08 11:05 | XMS_ITS | Clinical Summary ---
Author Organization [facility] Address [address] [place] [address] Phone Care Team Providers Care Tool Crib Manager Name Role Phone Richie Hatfield MD Primary Care Provider [phone] Allergies Active Allergy Reactions Criticality Noted Date [...] mellitus without complication Urinary incontinence 02/18/2022 Weight decreased 02/18/2022 Chronic kidney disease 07/25/2021 Stage 3a [...] Visit [facility] [address] [place] [address] Hollis Allison MD [address] [facility] [address] [place] [address] Health Maintenance Due Date Last Done [...] Recently Relevant to Health Maintenance Insurance Medicare [facility] Medicare [facility] Care Teams Tool Crib Manager Relationship Specialty Start Date End Date Richie Hatfield MD [address] [place] [address] [id number] [place], [place] PCP - General Medical Oncology 06/16/21
--- OUTSIDE RECORDS SUMMARY | 2025-06-08 11:05 | XMS_ITS | Patient Health Record ---
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 Richie Hatfield III Primary Care Provider Allergies Allergen (clinical drug ingredient) Drug/Non Drug Allergy documented on EMR Reaction Allergy Type Onset Date Status Shellfish (FN) Shellfish-derived Products hives Drug Allergy Active Iodine Unknown Drug Allergy Active Results Component Value Reference Range Notes XR pelvis 1-2V Reviewed date:09/29/2024 09:30:18 AM Interpretation: Performing Lab: Notes/Report: [facility] [address] [place] [address] Drive [address] [place] [address] XRay Report Signed Patient: Esdras Gonzales MR#: [id number] : 1935 Acct:[id number] Age/Sex: 89 / M ADM Date: 07/31/24 Loc: HO.HOSX Attending Dr: Kp Dick MD Ordering Physician: Kp Dick MD Date of Service: 07/31/24 Procedure(s): XR pelvis 1-2V Accession Number(s): [id number] cc: Richie Hatfield MD; Kp Dick MD EXAMINATION: XR PELVIS CLINICAL INFORMATION: Pain in unspecified hip M25.559. COMPARISON: XR Left hip 12/13/2007 (report only) TECHNIQUE: AP view of the pelvis. FINDINGS: Mild narrowing of the superior right hip joint space. The left hip appears normal. No fracture or malalignment. Mild bilateral sacroiliac osteoarthritis. 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 COMPARISON: XR Left hip 12/13/19 08 (report only) TECHNIQUE: AP view of the pelvis. FINDINGS: Mild narrowing of th e superior right hip joint space. The left hip appears normal. No fracture or malalignment. Mild bilateral sacroiliac osteoarthritis. 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, [address] [place] [phone] Notes/Report: White Blood Count 6.4 4.8-10.8 X10*3/uL Red Blood Count 4.55 4.60-5.80 X10*6/uL Hemoglobin 14.3 14.0-18.0 g/dl Hematocrit 42.7 42.0-52.0 % Mean Corpuscular Volume 93.8 80.0-98.0 fL Mean Corpuscular Hemoglobin 31.4 27.0-33.0 pg Mean Corpuscular HGB Conc 33.5 31.0-36.0 g/dl Red Cell Distribution Width 13.2 11.0-16.0 % Platelet Count 269 160-400 X10*3/uL Mean Platelet Volume 10.0 9.4-12.4 fL Neutrophils Percent Auto 68.6 45-73 % Imm Gran Pct Auto 0.3 0.0-0.4 % Lymphocytes Percent Auto 17.6 20-40 % Monocytes Percent Auto 9.6 2-11 % Eosinophils Percent Auto 3.0 0-4 % Basophils Percent Auto 0.9 0-2 % NRBC Pct Auto 0.0 0.0-0.2 /100WBC Neutrophils Absolute Auto 4.4 2.0-8.3 x10*3/u L Imm Gran Abs Auto 0.02 0.00-0.03 X10*3/uL Lymphocytes Absolute Auto 1.1 1.2-4.9 X10*3/u L Monocytes Absolute Auto 0.6 0.1-1.2 X10*3/uL Eosinophils Absolute Auto 0.2 0.0-0.4 X10*3/u L Basophils Absolute Auto 0.1 0.0-0.2 X10*3/uL NRBC Abs Auto 0.000 0.0-0.012 X10*3/uL Comprehensive [place]. Panel Fa st Reviewed date:10/15/2024 09:02:41 AM Interpretation: Performing Lab:[facility], [address] [place] [phone] Notes/Report: Sodium 139 135-145 mmol/L Potassium 4.2 3.3-5.1 mmol/L Chloride 112 96-108 mmol/L Carbon Dioxide 19 22-29 mmol/L Anion Gap 12 12-20 Blood Urea Nitrogen 29 9-16 mg/dL Creatinine 0.95 0.5-1.4 mg/dL Estimated Glomerular Filt Rate > 60 Chronic Kidney Disease: Estimated GFR < 60 mL/min/1.73m2 Severe Kidney Disease: Estimated GFR < 15 mL/min/1.73m2 Glucose Fasting 116 60-99 mg/dL A fasting glucose from 100-125 mg/dl is considered impaired (pre-diabetes). Calcium 9.1 8.4-10.2 mg/dL Bilirubin Total 0.9 0.0-1.0 mg/dL Aspartate Amino Transferase 18 5-37 U/L Alanine Aminotransferase 13 0-40 U/L Total Protein 7.4 6.5-8.0 g/dL Albumin Level 3.9 3.5-5.0 g/dL Alkaline Phosphatase 93 39-117 U/L Lipid Panel Reviewed date:10/15/2024 09:02:41 AM Interpretation: Performing Lab:[facility], [address] [place] [phone] Notes/Report: Triglycerides 47 <150 mg/dL Desirable Triglyceride: less than 150 mg/dL Borderline High Triglyceride 150-199 mg/dL High Triglyceride: 200-499 mg/dL Very High Triglyceride: greater than or equal to 5OO mg/dL Cholesterol 150 <200 mg/dL Desirable Cholesterol: less than 200 mg/dL Borderline High Cholesterol: 200-239 mg/dL High Cholesterol: greater than 239 mg/dL LDL Cholesterol Calculated 80 <100 mg/dL Desirable LDL: less than 100 mg/dL Near Optimal/Above Optimal LDL: 110-129 mg/dL Borderline High LDL: 130-159 mg/dL High LDL: 160-189 mg/dL Very High LDL: greater than or equal to 190 mg/dL HDL Cholesterol 61 >40 mg/dL Desirable HDL: greater than 40 mg/dL Note: This HDL assay may give artificially low results in patients with liver disease. Hemoglobin A1c Reviewed date:10/15/2024 09:02:41 AM Interpretation: Performing Lab:[facility], [address] [place] [phone] Notes/Report: Hemoglobin A1c % 5.9 <6.0 % [...] average glucose, using the formula of the O0P-Swtxqvt Average Glucose study (ADAG), Diabetes Care, Vol.31,#8, Mar. 2007 Complete Blood Count Auto Di ff Reviewed date:03/12/2025 02:10:30 PM Interpretation: Performing Lab:[facility], [address] [place] [phone] Notes/Report: White Blood Count 7.3 4.8-10.8 X10*3/uL Red Blood Count 4.30 4.60-5.80 X10*6/uL Hemoglobin 13.4 14.0-18.0 g/dl Hematocrit 40.5 42.0-52.0 % Mean Corpuscular Volume 94.2 80.0-98.0 fL Mean Corpuscular Hemoglobin 31.2 27.0-33.0 pg Mean Corpuscular HGB Conc 33.1 31.0-36.0 g/dl Red Cell Distribution Width 13.4 11.0-16.0 % Platelet Count 258 160-400 X10*3/uL Mean Platelet Volume 9.7 9.4-12.4 fL Neutrophils Percent Auto 67.8 45-73 % Imm Gran Pct Auto 0.3 0.0-0.4 % Lymphocytes Percent Auto 16.3 20-40 % Monocytes Percent Auto 10.7 2-11 % Eosinophils Percent Auto 3.8 0-4 % Basophils Percent Auto 1.1 0-2 % NRBC Pct Auto 0.0 0.0-0.2 /100WBC Neutrophils Absolute Auto 5.0 2.0-8.3 x10*3/u L Imm Gran Abs Auto 0.02 0.00-0.03 X10*3/uL Lymphocytes Absolute Auto 1.2 1.2-4.9 X10*3/u L Monocytes Absolute Auto 0.8 0.1-1.2 X10*3/uL Eosinophils Absolute Auto 0.3 0.0-0.4 X10*3/u L Basophils Absolute Auto 0.1 0.0-0.2 X10*3/uL NRBC Abs Auto 0.000 0.0-0.012 X10*3/uL Comprehensive [place]. Panel Fa Reviewed date:03/12/2025 02:10:30 PM Interpretation: Performing Lab:[facility], [address] [place] [phone] Notes/Report: Sodium 139 135-145 mmol/L Potassium 4.3 3.3-5.1 mmol/L Chloride 113 96-108 mmol/L Carbon Dioxide 20 22-29 mmol/L Anion Gap 10 12-20 Blood Urea Nitrogen 30 9-16 mg/dL Creatinine 1.30 0.5-1.4 mg/dL Estimated Glomerular Filt Rate 52 Chronic Kidney Disease: Estimated GFR < 60 mL/min/1.73m2 Severe Kidney Disease: Estimated GFR < 15 mL/min/1.73m2 Glucose Fasting 108 60-99 mg/dL A fasting glucose from 100-125 mg/dl is considered impaired (pre-diabetes). Calcium 8.7 8.4-10.2 mg/dL Bilirubin Total 0.5 0.0-1.0 mg/dL Aspartate Amino Transferase 18 5-37 U/L Alanine Aminotransferase 12 0-40 U/L Total Protein 7.0 6.5-8.0 g/dL Albumin Level 3.9 3.5-5.0 g/dL Alkaline Phosphatase 90 39-117 U/L Lipid Panel Reviewed date:03/12/2025 02:10:30 PM Interpretation: Performing Lab:[facility], [address] [place] [phone] Notes/Report: Triglycerides 36 <150 mg/dL Desirable Triglyceride: less than 150 mg/dL Borderline High Triglyceride 150-199 mg/dL High Triglyceride: 200-499 mg/dL Very High Triglyceride: greater than or equal to 5OO mg/dL Cholesterol 139 <200 mg/dL Desirable Cholesterol: less than 200 mg/dL Borderline High Cholesterol: 200-239 mg/dL High Cholesterol: greater than 239 mg/dL LDL Cholesterol Calculated 76 <100 mg/dL Desirable LDL: less than 100 mg/dL Near Optimal/Above Optimal LDL: 110-129 mg/dL Borderline High LDL: 130-159 mg/dL High LDL: 160-189 mg/dL Very High LDL: greater than or equal to 190 mg/dL HDL Cholesterol 56 >40 mg/dL Desirable HDL: greater than 40 mg/dL Note: This HDL assay may give artificially low results in patients with liver disease. Microalbumin, Random Reviewed date:03/12/2025 02:10:30 PM Interpretation: Performing Lab:[address] [phone] Notes/Report: Creatinine Urine 39.03 Microalbumin Urine 111.0 Microalbum/Creatinine Ratio Ur 284.3 <30 ug/mg cr Albumin/Creatinine Ratio Reference Ranges: Normal: < 30 ug/mg creatinine Microalbuminuria: 30 - 300 ug/mg creatinine Clinical Albuminuria: > 300 ug/mg creatinine Hemoglobin A1c Reviewed date:03/12/2025 02:10:30 PM Interpretation: Performing Lab:[address] [phone] Notes/Report: Hemoglobin A1c % 5.9 <6.0 % [...] average glucose, using the formula of the V7E-Rqkylrd Average Glucose study (ADAG), Diabetes Care, Vol.31,#8, Mar. 2007 Complete Blood Count Auto Di ff (Not yet reviewed by provider) Interpretation: Performing Lab:[address] [phone] Notes/Report: White Blood Count 7.3 4.8-10.8 X10*3/uL Red Blood Count 4.42 4.60-5.80 X10*6/uL Hemoglobin 13.9 14.0-18.0 g/dl Hematocrit 42.4 42.0-52.0 % Mean Corpuscular Volume 95.9 80.0-98.0 fL Mean Corpuscular Hemoglobin 31.4 27.0-33.0 pg Mean Corpuscular HGB Conc 32.8 31.0-36.0 g/dl Red Cell Distribution Width 13.3 11.0-16.0 % Platelet Count 268 160-400 X10*3/uL Mean Platelet Volume 9.9 9.4-12.4 fL Neutrophils Percent Auto 65.7 45-73 % Imm Gran Pct Auto 0.4 0.0-0.4 % Lymphocytes Percent Auto 18.9 20-40 % Monocytes Percent Auto 10.7 2-11 % Eosinophils Percent Auto 3.3 0-4 % Basophils Percent Auto 1.0 0-2 % NRBC Pct Auto 0.0 0.0-0.2 /100WBC Neutrophils Absolute Auto 4.8 2.0-8.3 x10*3/u L Imm Gran Abs Auto 0.03 0.00-0.03 X10*3/uL Lymphocytes Absolute Auto 1.4 1.2-4.9 X10*3/u L Monocytes Absolute Auto 0.8 0.1-1.2 X10*3/uL Eosinophils Absolute Auto 0.2 0.0-0.4 X10*3/u L Basophils Absolute Auto 0.1 0.0-0.2 X10*3/uL NRBC Abs Auto 0.000 0.0-0.012 X10*3/uL Hemoglobin A1c (Not yet revi ewed by provider) Interpretation: Performing Lab:[facility], [address] [place] [phone] Notes/Report: Hemoglobin A1c % 6.0 <6.0 % [...] average glucose, using the formula of the Q0G-Uvjgssg Average Glucose study (ADAG), Diabetes Care, Vol.31,#8, Mar. 2007 Reason For Referral Reason Evaluate and Treat Left hip pain Diagnosis 1 Left hip pain (M25.5 52) Referral Organization Richie Hatfield III, MD Referring Provider First Name Richie Referring Provider Last Name Alysia Referring Provider Speciality Internal M edicine Referred Provider [facility] Referred Provider Specialty Orthopedic S urgery General Notes Deyanira Quinones 06/26/2024 12:31:06 PM > Referral faxed with last progress note. Referral Priority Routine Referral Appointment Date 07/31/2024 Medications Medication SIG (Take, Route, Frequency, Duration) Notes Start Date End Date Status Mupirocin 2 % 1 application Lithographic Platemaker ally Twice a day 11/29/2023 Active Finasteride 5 MG 1 tablet Orally Once a day 05/27/2024 Active Tamsulosin HCl 0.4 mg TAKE 1 capsule Ora lly Twice a day 90 days for 90 Active amLODIPine Besylate 10 mg TAKE 1 tablet Orally Once a day 90 days Active metFORMIN HCl 500 mg TAKE 1 tabletBY MICKI TH with meals Orally Once a day 90 days Active Atorvastatin Calcium 10 mg TAKE 1 tablet Orally Once a day 90 days for 90 Active Lisinopril 10 MG 1 tablet Orally Once a day Active Aspirin 81 81 MG 1 tablet Orally Once a day Active Immunizations Vaccine Route Administration Date Status [...] Never (0 point) Points 2 Interpretation Negative Problems Problem Type SNOMED Code ICD Code Onset Dates Problem Status W/U Status Risk Notes Problem 507908939 Obesity (E66.9) Active confirmed We discussed his diet and nutrition today. We reviewed calorie restriction and recreational eating. We made a plan to lose weight at a rate of one half of a pound per week Problem 34653440 Type 2 diabetes mellitus without complications (E11.9) Active confirmed His diabetes is well controlled with a hemoglobin A1c of 5.9. No change in his regimen was made today. I recommended he stabilize his weight and prevent further gains. Problem 061964972 Anticoagulated (Z79.01) Active confirmed He is taking warfarin at his INR is 2.2. The Lovenox was discontinued today. He was referred to the anticoagulation clinic at [facility]. His INR will be Between 2.0 and 3.0. Problem 10707384 Essential hypertension (I10) Active confirmed His blood pressure is stable No change in his regimen was made today. Problem 402268775 Cataract (H26.9) Active confirmed His vision has improved and he had no complications from the ophthalmic surgery. Problem 745122928 Benign prostatic hyperplasia, presence of lower urinary tract symptoms unspecified, unspecified morphology (N40.0) Active confirmed He has an enlarged prostate with a residual of about 300 mL. He is on tamsulosin and finasteride and sees urologist regularly. No change in his regimen was made today. Problem 55882730 Hyperlipidemia, unspecified hyperlipidemia type (E78.5) Active confirmed His lipids appear to be well controlled. I have recommended weight loss and a diet low in animal fat. 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 He did not request any additional medication. Problem 22090396 Pulmonary emboli (I26.99) Active confirmed He is no nicole kaden anticoagulated. He has had no signs or symptoms of DVT or embolism.He was continued on his regimen without change. Problem Pure hypercholesterole toan (487251558) Hyperlipidemia type II (E78.01) Active confirmed The current fasting lipid profile shows his total cholesterol is well within rangge. No change in his regimen was made. I recommended aggressive weight loss and a healthy low cholesterol diabetic diet. Problem 360480038 Cerebrovascular accident (CVA), unspecified mechanism (I63.9) Active confirmed He had a TIA with no permanent deficit on MRI. Problem 761532694415685 Right internal carotid occlusion (I65.21) Active confirmed This finding wa s on a recent CT angiogram of the neck in the context of a small stroke. He will continue on anticoagulation. Vital Signs Heart Rate 80 /min 03/12/2025 Temperature 98.8 degrees Fahrenheit 03/12/2025 Blood pressure diastolic 64 mm Hg 03/12/2025 Height 70 in 03/12/2025 Blood pressure systolic 129 mm Hg 03/12/2025 Weight 218 lbs 03/12/2025 BMI 31.28 kg/m2 03/12/2025 Encounters Encounter Location Date Provider Diagnosis Richie Hatfield III, MD [address] [place] [address] [address] [place] [address] 10/27/2024 Richie Hatfield Benign prostatic hyperplasia, presence of lower urinary tract symptoms unspecified, unspecified morphology N40.0 ; Type 2 diabetes mellitus without complications E11.9 ; Obesity E66.9 ; Hyperlipidemia type II E78.01 ; Essential hypertension I10 ; Lumbar disc herniation with myelopathy M51.06 ; Pulmonary emboli I26.99 ; Right internal carotid occlusion I65.21 and Anticoagulated Z79.01 Richie Hatfield III, MD [address] [place] [address] [address] [place] [address] 03/12/2025 Richie Hatfield Benign prostatic hyperplasia, presence of lower urinary tract symptoms unspecified, unspecified morphology N40.0 ; Type 2 diabetes mellitus without complications E11.9 ; Obesity E66.9 ; Essential hypertension I10 ; Lumbar disc herniation with myelopathy M51.06 ; Pulmonary emboli I26.99 ; Hyperlipidemia type II E78.01 and Anticoagulated Z79.01 Richie Hatfield III, MD [address] [place] [address] [place] [address] 06/26/2024 Richie Hatfield Assessments Encounter Date Diagnosis (ICD Code) Assessment Notes Treat ment Notes Treatment Clinical Notes 10/27/2024 Type 2 diabetes mellitus without complications (ICD-10 - E11.9) He has beeen compliant with all of his medications. His hemoglobin A1c is 5.9 and his fasting glucose is 116. No change in his regimen as necessary today. I recommend a gradual weight loss and a healthy diet. 10/27/2024 Benign prostatic hyperplasia, presence of lower [...] his weight and prevent further gains. 03/12/2025 Benign prostatic hyperplasia, presence of lower urinary tract symptoms unspecified, unspecified morphology (ICD-10 - N40.0) He has an enlarged prostate with a residual of about 300 mL. He is on tamsulosin and finasteride and sees urologist regularly. No change in his regimen was made today. 10/27/2024 Obesity (ICD-10 - E66.9) His body mass index is 30.7. He weighs 214 pounds. We discussed diet and nutrition today. We made a plan to lose weight at a rate of one half of a pound per week. 03/12/2025 Obesity (ICD-10 - E66.9) We discussed his diet and nutrition today. We reviewed calorie restriction and recreational eating. We made a plan to lose weight at a rate of one half of a pound per week 10/27/2024 Hyperlipidemia type II (ICD-10 - E78.01) The current fasting lipid profile shows his total cholesterol is 150 well within rangge. No change in his regimen was made. I recommended aggressive weight loss and a healthy low cholesterol diabetic diet. 03/12/2025 Essential hypertension (ICD-10 - I10) His blood pressure is stable No change in his regimen was made today. 10/27/2024 Essential hypertension (ICD-10 - I10) His blood pressure is stable No change in his regimen was made today. 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 He did not request any additional medication. 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 He did not request any additional medication. 03/12/2025 Pulmonary emboli (ICD-10 - I26.99) He is no longer anticoagulated. He has had no signs or symptoms of DVT or embolism.He was continued on his regimen without change. 10/27/2024 Pulmonary emboli (ICD-10 - I26.99) He [...] a healthy low cholesterol diabetic diet. 10/27/2024 Right internal carotid occlusion (ICD-10 - I65.21) This finding was on a recent CT angiogram of the neck in the context of a small stroke. He will continue on anticoagulation. 03/12/2025 Anticoagulated (ICD-10 - Z79.01) He is taking warfarin at his INR is 2.2. The Lovenox was discontinued today. He was referred to the anticoagulation clinic at [facility]. His INR will be Between 2.0 and 3.0. 10/27/2024 Anticoagulated (ICD-10 - Z79.01) He is taking warfarin at his INR is 2.2. The Lovenox was discontinued today. He was referred to the anticoagulation clinic at [facility]. His INR will be Between 2.0 and 3.0. Plan Of Treatment Pending Test Test Name Order Date URINE DIP STICK 12/17/2022 EKG 05/29/2013 PROFILE, FASTING (COMPREHENSIVE METABOLI C) 04/19/2020 PROFILE, FASTING (COMPREHENSIVE METABOLI C) 09/19/2018 PROFILE, FASTING (COMPREHENSIVE METABOLI C) 04/24/2022 PROFILE, FASTING (COMPREHENSIVE METABOLI C) 05/20/2018 PROFILE, FASTING (COMPREHENSIVE METABOLI C) 05/26/2024 PROFILE, FASTING (COMPREHENSIVE METABOLI C) 07/31/2022 PROFILE, FASTING (COMPREHENSIVE METABOLI C) 04/09/2021 PROFILE, FASTING (COMPREHENSIVE METABOLI C) 01/21/2018 PROFILE, FASTING (COMPREHENSIVE METABOLI C) 02/05/2021 PROFILE, FASTING (COMPREHENSIVE METABOLI C) 03/10/2024 PROFILE, FASTING (COMPREHENSIVE METABOLI C) 06/13/2021 PROFILE, FASTING (COMPREHENSIVE METABOLI C) 11/12/2023 PROFILE, FASTING (COMPREHENSIVE METABOLI C) 12/15/2019 PROFILE, FASTING (COMPREHENSIVE METABOLI C) 09/14/2017 PROFILE, FASTING (COMPREHENSIVE METABOLI C) 03/19/2023 PROFILE, FASTING (COMPREHENSIVE METABOLI C) 09/12/2021 PROFILE, FASTING (COMPREHENSIVE METABOLI C) 10/30/2020 PROFILE, FASTING (COMPREHENSIVE METABOLI C) 12/17/2022 PROFILE, FASTING (COMPREHENSIVE METABOLI C) 12/12/2021 PROFILE, FASTING (COMPREHENSIVE METABOLI C) 04/14/2019 PROFILE, FASTING (COMPREHENSIVE METABOLI C) 10/27/2024 PROFILE, FASTING (COMPREHENSIVE METABOLI C) 07/23/2023 PROFILE, FASTING (COMPREHENSIVE METABOLI C) 09/13/2020 PROFILE, FASTING (COMPREHENSIVE METABOLI C) 01/20/2019 PROFILE, RANDOM (COMPREHENSIVE METABOLIC ) 08/18/2019 PROFILE, RANDOM (COMPREHENSIVE METABOLIC ) 03/12/2025 HEMOGLOBIN A1C (GLYCOHEMOGLOBIN) 019 HEMOGLOBIN A1C (GLYCOHEMOGLOBIN) 020 HEMOGLOBIN A1C (GLYCOHEMOGLOBIN) 019 HEMOGLOBIN A1C (GLYCOHEMOGLOBIN) 018 HEMOGLOBIN A1C (GLYCOHEMOGLOBIN) 021 HEMOGLOBIN A1C (GLYCOHEMOGLOBIN) 018 HEMOGLOBIN A1C (GLYCOHEMOGLOBIN) 021 HEMOGLOBIN A1C (GLYCOHEMOGLOBIN) 021 HEMOGLOBIN A1C (GLYCOHEMOGLOBIN) 018 HEMOGLOBIN A1C (GLYCOHEMOGLOBIN) 023 HEMOGLOBIN A1C (GLYCOHEMOGLOBIN) 022 HEMOGLOBIN A1C (GLYCOHEMOGLOBIN) 019 HEMOGLOBIN A1C (GLYCOHEMOGLOBIN) 021 HEMOGLOBIN A1C (GLYCOHEMOGLOBIN) 023 HEMOGLOBIN A1C (GLYCOHEMOGLOBIN) 019 HEMOGLOBIN A1C (GLYCOHEMOGLOBIN) 021 LIPID PANEL 09/13/2020 LIPID PANEL 01/20/2019 LIPID PANEL 09/19/2018 LIPID PANEL 03/10/2024 LIPID PANEL 05/20/2018 LIPID PANEL 04/09/2021 LIPID PANEL 01/21/2018 LIPID PANEL 12/15/2019 LIPID PANEL 02/05/2021 LIPID PANEL 12/12/2021 LIPID PANEL 09/14/2017 LIPID PANEL 03/19/2023 LIPID PANEL 08/18/2019 LIPID PANEL 10/30/2020 LIPID PANEL 12/17/2022 LIPID PANEL 04/14/2019 PSA, TOTAL 03/19/2023 PSA, TOTAL 08/18/2019 PSA, TOTAL 12/17/2022 PSA, TOTAL 04/24/2022 PSA, TOTAL 03/10/2024 PSA, TOTAL 04/09/2021 PSA, TOTAL 01/21/2018 PSA, TOTAL+FREE 02/05/2021 MICROALBUMIN, RANDOM 04/14/2019 MICROALBUMIN, RANDOM 03/19/2023 MICROALBUMIN, RANDOM 04/19/2020 MICROALBUMIN, RANDOM 05/20/2018 MICROALBUMIN, RANDOM 04/09/2021 CBC w DIFF 02/05/2021 CBC w DIFF 09/14/2017 CBC w DIFF 10/30/2020 CBC w DIFF 04/09/2021 CBC w DIFF 08/18/2019 CBC w DIFF 12/17/2022 CBC w DIFF 04/14/2019 CBC w DIFF 09/13/2020 CBC w DIFF 01/20/2019 CBC w DIFF 07/31/2022 CBC w DIFF 03/19/2023 CBC w DIFF 04/24/2022 CBC w DIFF 04/19/2020 CBC w DIFF 09/19/2018 CBC w DIFF 03/12/2025 CBC w DIFF 06/13/2021 CBC w DIFF 10/27/2024 CBC w DIFF 12/15/2019 CBC w DIFF 09/12/2021 CBC w DIFF 05/20/2018 CBC w DIFF 12/12/2021 CBC w DIFF 01/21/2018 PROTHROMBIN TIME (PT, INR) 10/19/2022 PROTHROMBIN TIME (PT, INR) 10/16/2022 URINALYSIS (UA) 11/12/2021 URINE CULTURE 11/12/2021 US RENAL BILATERAL 06/13/2021 CBC WITH AUTO DIFF 05/26/2024 CBC WITH AUTO DIFF 11/12/2023 CBC WITH AUTO DIFF 07/23/2023 CBC WITH AUTO DIFF 03/10/2024 Complete Blood Count Auto Diff Lipid Panel 09/12/2021 Lipid Panel 07/31/2022 Lipid Panel 04/24/2022 Lipid Panel 11/12/2023 Lipid Panel 06/13/2021 Lipid Panel 10/27/2024 Lipid Panel 07/23/2023 Microalbumin, Random 10/27/2024 Microalbumin, Random 07/31/2022 Microalbumin, Random 11/12/2023 US bladder 06/13/2021 Hemoglobin A1c 03/10/2024 Hemoglobin A1c 11/12/2023 Hemoglobin A1c 07/23/2023 Hemoglobin A1c 10/27/2024 Hemoglobin A1c 06/08/2025 Hemoglobin A1c 04/24/2022 Hemoglobin A1c 03/12/2025 Hemoglobin A1c 07/31/2022 Next Appt Details Provider Name:Richie Borges Alysia , 06/12/2025 10:30:00 AM, [address] [place] [address] [address], [place], [address], Provider Name:Richie Jony Alysia , 03/13/2026 02:30:00 PM, [address] [place] [address] [address], [place], [address], Insurance Providers Payer Name Payer Address Payer Phone Subscriber Number Group Number Insured Name Patient Relationship to Insured Coverage Start Date Coverage End Date [address] [place] [phone] [id number] Esdras Gonzales Self - patient is the insured MEDICARE NGS [address] [place] [phone] [id number] Esdras Gonzlaes Self - patient is the insured Medical (General) History Medical History History ICD Code hypertension recurrent sinus problems pneumonia 1953 osteoarthritis bph hyperlipidemia hyperglycemia. Fasting obesity cataracts herniated disc lumbar spine with a right radiculopathy macular degeneration, dry Urinary incontinence October 2021 Surgical History Surgery Date(Month/Year) cataract surgery 09/2016 Right L3-L4 extraforaminal microdiscecto my 05-24-2016 Hospitalization History Reason Date(Month/Year) No history
[2025-06-08 12:47] LABS: Alanine Aminotransferase 13 U/L (0-40); Albumin Level 4.0 g/dL (3.5-5.0); Alkaline Phosphatase 91 U/L (39-117); Anion Gap 13 (12-20); Aspartate Amino Transferase 19 U/L (5-37); Blood Urea Nitrogen 32 mg/dL (9-16); Calcium 8.8 mg/dL (8.4-10.2); Carbon Dioxide 22 mmol/L (22-29); Chloride 110 mmol/L (96-108); Estimated Glomerular Filt Rate 51; Potassium 4.5 mmol/L (3.3-5.1); Sodium 140 mmol/L (135-145); Total Protein 6.9 g/dL (6.5-8.0)
== END 2025-06-08 09:38 | disposition home or self-care (01) ==
LOC: HO.LAB 09:37
PROVIDERS: PCP Physician Assistant; Visit Provider Internal Medicine Medical Oncology
DX: E11.9 Type 2 diabetes mellitus without complications (principal); E66.9 Obesity, unspecified
CPT/HCPCS: 36415; 80053; 83036; 85025